=== PATIENT | male | born 1945 | race Caucasian/White ===

== ENCOUNTER 2019-08-01 10:35 | Inpatient (IN) | payer MEDICARE, BC ==
[2019-08-01] MEDS ORDERED: RX INFO: IV CONTRAST WAS GIVEN 1 EACH MISC MISCELLANE PRN (11:05)
[2019-08-01] MEDS ORDERED: VANCOMYCIN IV PER PHARMACY 1 EACH MISC MISCELLANE PRN (11:12)
--- NOTE | 2019-08-01 11:13 | ED ---
General Adult HPI - General Chief complaint: Shortness of Breath Stated complaint: Sepsis Time Seen by Provider: 08/01/19 10:36 Source: RN/MD Mode of arrival: EMS Limitations: no limitations - History of Present Illness Initial comments: Dictation was produced using [employer] dictation software. please excuse any grammatical, word or spelling errors. Chief Complaint: 74-year-old male transferred from [facility] for escalation of care. History of Present Illness: 74-year-old male who was transferred from [facility]. Over the last several days patient has been expressing worsening shortness of breath and weakness. Patient is a history of severe COPD with depressed respiratory function. His traffic control flagger is Dr. Bradley. Patient states over the last 48 hours he's been having worsening weakness especially noticeable in his legs. Patient is oxygen dependent. Patient was evaluated at [facility]. He was given written treatment. X-ray was performed showing cavitating lesion in the right upper lobe concerning for fungal versus neoplastic versus tuberculosis. Patient was placed in isolation. Patient was given Levaquin. She still continues. Breath however states that his symptoms are manageable. Patient is more concerned about his weakness. The ROS documented in this emergency department record has been reviewed and confirmed by me. Those systems with pertinent positive or negative responses have been documented in the HPI. All other systems are other negative and/or noncontributory. PHYSICAL EXAM: General Impression: Alert and oriented x3, not in acute distress HEENT: Normocephalic atraumatic, extra-ocular movements intact, pupils equal and reactive to light bilaterally, mucous membranes moist. Cardiovascular: Heart regular rate and rhythm, S1&S2 audible, no murmurs, rubs or gallops Chest: Mild diffuse end expiratory wheezing Abdomen: Bowel sounds present, abdomen soft, non-tender, non-distended, no organomegaly Musculoskeletal: Pulses present and equal in all extremities, no peripheral edema Motor: no focal deficits noted Neurological: CN II-XII grossly intact, no focal motor or sensory deficits noted Skin: Intact with no visualized rashes Psych: Normal affect and mood ED course: 74-year-old male transferred from [facility] for escalation of care. She has history of COPD and is oxygen dependent. Lungs upon arrival shows heart rate of 105, rest of vital signs within acceptable limits. Patient is well-appearing at bedside. Does have mild wheeze but does not appear to be dyspneic. Transferred documentation was reviewed in its entirety. Labs from [place] shows leukocytosis of 21.4 x-rays were loaded into our PACS system. Given the patient has cavitating lesion we will order patient vancomycin for possibility of lung abscess. MRI was reviewed. Patient does not have any hospital visits to this hospital. CT of the chest with contrast was ordered for further diagnostic imaging. CT of the chest shows 74 cm cavitary structure with fluid level concerning for an infected bulla. Discussed patient case Dr. Meredith was willing to accept patient care. Patient be admitted with consultation to pulmonology. EKG interpretation: Ventricular rate modifying, sinus tachycardia,. Interval 126, QS 82, QTc 446. No OH prolongation, no QTC prolongation, no ST or T-wave changes noted. Pulmonary disease pattern. - Related Data Allergies Allergy/AdvReac Type Severity Reaction Status Date / Time No Known Allergies Allergy Verified 08/01/19 10:48 Review of Systems ROS Statement: Those systems with pertinent positive or pertinent negative responses have been documented in the HPI. ROS Other: All systems not noted in ROS Statement are negative. Past Medical History Past Medical History: Asthma, COPD, Hyperlipidemia, Hypertension, Pneumonia History of Any Multi-Drug Resistant Organisms: None Reported Past Surgical History: No Surgical Hx Reported Past Psychological History: Anxiety Smoking Status: Former smoker Past Alcohol Use History: None Reported Past Drug Use History: None Reported General Exam Limitations: no limitations Course Vital Signs 08/01/19 08/01/19 08/01/19 10:42 10:49 12:01 Temperature 98.4 F Pulse Rate 105 H 100 Respiratory 18 20 18 Rate Blood Pressure 128/88 115/78 O2 Sat by Pulse 97 97 Oximetry Disposition Clinical Impression: Pneumonia Disposition: ADMITTED IP TO THIS HOSP Condition: Fair Referrals: Osvaldo Maynard MD [Primary Care Provider] - 1-2 days Decision Time: 13:20
[2019-08-01] MEDS ORDERED: VANCOMYCIN 1,250 MG in SODIUM CHLORIDE 0.9% 250 ML IVPB STA (11:18)
--- NOTE | 2019-08-01 12:55 | CT ---
EXAMINATION TYPE: CT chest w con DATE OF EXAM: 08/01/2019 COMPARISON: None HISTORY: Abnormal xray. CT DLP: 286.4 mGycm Automated exposure control for dose reduction was used. CONTRAST: CT scan of the chest is performed with IV Contrast, patient injected with 100 mL of Isovue 300. FINDINGS: LUNGS: 7.0 x 4.1 cm cavitary structure with fluid level noted left upper lobe extending into the left lung apex may reflect cavitary neoplasm versus an infected bulla or cavitary infection. Surrounding areas of cystic change with additional infiltrate noted left upper lobe. Associated bronchiectasis. S evere emphysematous changes noted bilaterally. No additional areas of air-fluid level seen. Right api svetlana parenchymal scar. Scattered granulomas seen. MEDIASTINUM: There are no greater than 1 cm hilar or mediastinal lymph nodes. No pericardial effusi on is seen. Thoracic aorta is of normal caliber. The heart is not enlarged. UPPER ABDOMEN: No significant abnormality appreciated. OTHER: No additional significant abnormality is seen. IMPRESSION: 1.: 7.0 x 4.1 cm cavitary structure with fluid level noted left upper lobe extending into the left elmer ng apex may reflect infected bulla although cavitary neoplasm or cavitary infection excluded. 2. Adjacent area of additional infiltrate with cystic changes identified within it and associated bro nchiectasis. 3. Severe changes of emphysema.
[2019-08-01] MEDS ORDERED: ACETAMINOPHEN TAB 325 MG TAB PO PRN (13:16)
[2019-08-01] MEDS ORDERED: ONDANSETRON 4 MG/2 ML VIAL IVP PRN (13:16)
[2019-08-01] MEDS ORDERED: NALOXONE 0.4 MG/ML 1 ML VIAL IV PRN (13:16)
[2019-08-01] MEDS: SODIUM CHLORIDE 0.9% 1,000 ML IV SCH (15:04)
[2019-08-01] MEDS ORDERED: INFLUENZA VACCINE (6 MOS+) 60 MCG/0.5 ML SYRINGE IM ONE (16:17)
[2019-08-01] MEDS: PIPERACILLIN-TAZOBACTAM 3.375 GM in SODIUM CHLORIDE 0.9% 100 ML IVPB SCH (16:24)
[2019-08-01] MEDS ORDERED: EPINEPHrine 1 MG/ML 1 ML AMP IM PRN (16:51)
[2019-08-01] MEDS ORDERED: PANTOPRAZOLE 40 MG TABLET PO PRN (16:51)
[2019-08-01 16:55] LABS: African American GFR (CKD) >90 (>60 ml/min/1.73 sqM); Non-African American GFR(CKD) >90 (>60 ml/min/1.73 sqM)
--- NOTE | 2019-08-01 17:07 | P.HPIM ---
History of Present Illness 74-year-old pleasant male with known history of COPD quit smoking in 1998 does have advanced COPD with FEV1 of around 10, advanced COPD came in with compensative shortness of breath, night sweats. Patient was complaining of occasional cough unable to bring up much after breathing treatments he is bringing up a bit. X-ray was suspicious for cavities and patient was subsequently sent in here. Patient denied any event. Patient denied any exposure to tumor closest contact denied any travel denied any incarceration. Patient denied any significant recent weight loss. Patient CAT scan was done here which showed a cavitary lesion but there is no lymphadenopathy that we normally see in BP. Patient had significant emphysema with massive bullae. I did review the CAT scan images. Patient does have been a cavitary infiltrate significant with the air bronchogram and pneumonia in that area cannot be ruled out. Pulmonary was consulted. Review of Systems REVIEW OF SYSTEMS: CONSTITUTIONAL: , no malaise, no fatigue. HEENT: No recent visual problems or hearing problems. Denied any sore throat. CARDIOVASCULAR: No chest pain, orthopnea, PND, no palpitations, no syncope. PULMONARY: As mentioned in HPI GASTROINTESTINAL: No diarrhea, no nausea, no vomiting, no abdominal pain. NEUROLOGICAL: No headaches, no weakness, no numbness. HEMATOLOGICAL: Denies any bleeding or petechiae. GENITOURINARY: Denies any burning micturition, frequency, or urgency. MUSCULOSKELETAL/RHEUMATOLOGICAL: Denies any joint pain, swelling, or any muscle pain. ENDOCRINE: Denies any polyuria or polydipsia. The rest of the 14-point review of systems is negative. Past Medical History Past Medical History: Asthma, COPD, GERD/Reflux, Hyperlipidemia, Hypertension, Pneumonia, Respiratory Disorder Additional Past Medical History / Comment(s): Severe COPD, home oxygen at 2L/[place] ATC, pneumonia with sepsis, diverticulosis/diverticulitis, overactive bladder History of Any Multi-Drug Resistant Organisms: None Reported Past Surgical History: Orthopedic Surgery, Tonsillectomy Additional Past Surgical History / Comment(s): R index finger tendon surgery, colonoscopies, bilateral cataract removals/lens implants Past Anesthesia/Blood Transfusion Reactions: Postoperative Nausea & Vomiting (PONV) Smoking Status: Former smoker - Past Family History Father Family Medical History: CVA/TIA Additional Family Medical History / Comment(s): Father lived to be 86yrs old. Mother Family Medical History: Cancer Additional Family Medical History / Comment(s): Mother of colon cancer at the age of 53 yrs. Medications and Allergies Home Medications Medication Instructions Recorded Confirmed Type Budesonide-Formot 160-4.5 Mcg 2 puff INHALATION RT-BID 08/01/19 08/01/19 History [Symbicort 160-4.5 Mcg Inhaler] EPINEPHrine (Auto Inject) [Epipen] 0.3 mg IM ONCE PRN 08/01/19 08/01/19 History Ipratropium-Albuterol Nebulize 3 ml INHALATION RT-QID 08/01/19 08/01/19 History [Duoneb 0.5 mg-3 mg/3 ml Soln] Montelukast Sodium [Singulair] 10 mg PO DAILY 08/01/19 08/01/19 History Omeprazole [PriLOSEC] 20 mg PO DAILY PRN 08/01/19 08/01/19 History Simvastatin [Zocor] 5 mg PO HS 08/01/19 08/01/19 History Theophylline Anhydrous [Uniphyl ER] 600 mg PO DAILY 08/01/19 08/01/19 History Tiotropium [place] [Spiriva] 1 cap INHALATION RT-DAILY 08/01/19 08/01/19 History amLODIPine [Norvasc] 5 mg PO DAILY 08/01/19 08/01/19 History clonazePAM [KlonoPIN] 0.5 mg PO BID PRN 08/01/19 08/01/19 History guaiFENesin [Mucinex] 1,200 mg PO BID PRN 08/01/19 08/01/19 History predniSONE 10 mg PO DAILY 08/01/19 08/01/19 History Allergies Allergy/AdvReac Type Severity Reaction Status Date / Time No Known Allergies Allergy Verified 08/01/19 14:04 Physical Exam Vitals: Vital Signs Temp Pulse Resp BP Pulse Ox 08/01/19 16:00 98.9 F 101 H 19 147/88 96 08/01/19 15:00 98.7 F 93 17 121/63 96 08/01/19 13:50 91 18 114/61 97 08/01/19 13:30 94 18 107/79 97 08/01/19 12:01 100 18 115/78 97 08/01/19 10:49 20 08/01/19 10:42 98.4 F 105 H 18 128/88 97 Intake and Output 08/01/19 08/01/19 08/01/19 06:59 14:59 22:59 Other: Weight 68.039 kg 68.039 kg PHYSICAL EXAMINATION: GENERAL: The patient is alert and oriented x3, not in any acute distress. Well developed, well nourished. HEENT: Pupils are round and equally reacting to light. EOMI. No scleral icterus. No conjunctival pallor. Normocephalic, atraumatic. No pharyngeal erythema. No thyromegaly. CARDIOVASCULAR: S1 and S2 present. No murmurs, rubs, or gallops. PULMONARY: There is no air movement on exam ABDOMEN: Soft, nontender, nondistended, normoactive bowel sounds. No palpable organomegaly. MUSCULOSKELETAL: No joint swelling or deformity. EXTREMITIES: No cyanosis, clubbing, or pedal edema. NEUROLOGICAL: Gross neurological examination did not reveal any focal deficits. SKIN: No rashes. Thrombosis Risk Factor Assmnt - Choose All That Apply Any of the Below Risk Factors Present?: Yes Each Factor Represents 1 point: Abnormal pulmonary function (COPD), Serious lung disease incl. pneumonia (< 1month) Other Risk Factors: Yes Each Risk Factor Represents 2 Points: Age 61-74 years Other congenital or acquired thrombophilia - If yes, enter type in comment: No Thrombosis Risk Factor Assessment Total Risk Factor Score: 4 Thrombosis Risk Factor Assessment Level: Moderate Risk Assessment and Plan Plan: Acute on chronic hypercapnic respiratory failure secondary to COPD exacerbation patient will be started on systemic steroids inhalational treatments. Patient may have pneumonia patient will be treated for staphylococcal pneumonia as well as and with pneumonia pulmonary will be consulted my suspicion is low for Aspergillus cavitary lesion and suspicion is low for tuberculosis as well. And uses 2 L of oxygen at home presently on 3 L -Cavitary lesion with possible duane-lesion pneumonia: Patient with intrauterine Zosyn and vancomycin pulmonary was consulted. 1 sure whether this is an older cavitary lesion. Patient follows with Dr. Carnes as an outpatient. -Leukocytosis secondary to pneumonia as mentioned above, we'll repeat CBC tomorrow looking for eosinophilia -Severe emphysema and COPD -Past esophageal reflux disease -Hypertension -hyperlipidemia -DVT prophylaxis subcutaneous heparin
--- NOTE | 2019-08-01 17:31 | P.CNPUL ---
History of Present Illness Consult date: 08/01/19 Requesting physician: Alonso Meredith Reason for consult: dyspnea Chief complaint: shortness of breath, chills, cough History of present illness: 74-year-old male patient with history of severe COPD, with baseline FEV1 of 0.48 L or 15% of predicted with diffusion abnormality, chronic hypoxemic respiratory failure, hypertension, anxiety, hyperlipidemia, former smoking history. She follows with Dr. Carnes in the pulmonary clinic, patient is on maintenance dose of prednisone 10 mg daily, Spiriva, DuoNeb, Symbicort, theophylline, and Mucinex. Patient presented to the hospital for evaluation of increasing dyspnea, cough, chills, weakness, reduction of greenish colored sputum. Patient was initially evaluated at [facility], and chest x- rays performed showing cavitating lesion in the right upper lobe concerning for fungal versus neoplastic versus TB. Patient was started on Levaquin, patient was transferred to [facility] for further management, and CT chest with contrast was obtained showing a 7.0 x 4.1 cm cavitary structure with fluid level in the left upper lobe extending into the left lung apex that could reflect infected Although cavitary neoplasm with catheter infection not excluded, severe bullous emphysema was noted. she was started on empiric antibiotics,in the form of Zosyn and vancomycin, nebulized bronchodilators and he is being admitted for further management. Review of Systems All systems: negative Constitutional: Denies chills, Denies fever Eyes: denies blurred vision, denies pain Ears, nose, mouth and throat: Denies headache, Denies sore throat Cardiovascular: Denies chest pain, Denies shortness of breath Respiratory: Reports cough with sputum, Reports dyspnea, Reports home oxygen, Reports respiratory infections, Reports wheezing, Denies cough Gastrointestinal: Denies abdominal pain, Denies diarrhea, Denies nausea, Denies vomiting Musculoskeletal: Denies myalgias Integumentary: Denies pruritus, Denies rash Neurological: Denies numbness, Denies weakness Psychiatric: Denies anxiety, Denies depression Endocrine: Denies fatigue, Denies weight change Past Medical History Past Medical History: Asthma, COPD, GERD/Reflux, Hyperlipidemia, Hypertension, Pneumonia, Respiratory Disorder Additional Past Medical History / Comment(s): Severe COPD, home oxygen at 2L/[place] ATC, pneumonia with sepsis, diverticulosis/diverticulitis, overactive bladder History of Any Multi-Drug Resistant Organisms: None Reported Past Surgical History: Orthopedic Surgery, Tonsillectomy Additional Past Surgical History / Comment(s): R index finger tendon surgery, colonoscopies, bilateral cataract removals/lens implants Past Anesthesia/Blood Transfusion Reactions: Postoperative Nausea & Vomiting (PONV) Smoking Status: Former smoker - Past Family History Father Family Medical History: CVA/TIA Additional Family Medical History / Comment(s): Father lived to be 86yrs old. Mother Family Medical History: Cancer Additional Family Medical History / Comment(s): Mother of colon cancer at the age of 53 yrs. Medications and Allergies Home Medications Medication Instructions Recorded Confirmed Type Budesonide-Formot 160-4.5 Mcg 2 puff INHALATION RT-BID 08/01/19 08/01/19 History [Symbicort 160-4.5 Mcg Inhaler] EPINEPHrine (Auto Inject) [Epipen] 0.3 mg IM ONCE PRN 08/01/19 08/01/19 History Ipratropium-Albuterol Nebulize 3 ml INHALATION RT-QID 08/01/19 08/01/19 History [Duoneb 0.5 mg-3 mg/3 ml Soln] Montelukast Sodium [Singulair] 10 mg PO DAILY 08/01/19 08/01/19 History Omeprazole [PriLOSEC] 20 mg PO DAILY PRN 08/01/19 08/01/19 History Simvastatin [Zocor] 5 mg PO HS 08/01/19 08/01/19 History Theophylline Anhydrous [Uniphyl ER] 600 mg PO DAILY 08/01/19 08/01/19 History Tiotropium [place] [Spiriva] 1 cap INHALATION RT-DAILY 08/01/19 08/01/19 History amLODIPine [Norvasc] 5 mg PO DAILY 08/01/19 08/01/19 History clonazePAM [KlonoPIN] 0.5 mg PO BID PRN 08/01/19 08/01/19 History guaiFENesin [Mucinex] 1,200 mg PO BID PRN 08/01/19 08/01/19 History predniSONE 10 mg PO DAILY 08/01/19 08/01/19 History Allergies Allergy/AdvReac Type Severity Reaction Status Date / Time No Known Allergies Allergy Verified 08/01/19 14:04 Physical Exam Vitals: Vital Signs Temp Pulse Resp BP Pulse Ox 08/01/19 16:00 98.9 F 101 H 19 147/88 96 08/01/19 15:00 98.7 F 93 17 121/63 96 08/01/19 13:50 91 18 114/61 97 08/01/19 13:30 94 18 107/79 97 08/01/19 12:01 100 18 115/78 97 08/01/19 10:49 20 08/01/19 10:42 98.4 F 105 H 18 128/88 97 Intake and Output 08/01/19 08/01/19 08/01/19 06:59 14:59 22:59 Other: Weight 68.039 kg 68.039 kg GENERAL EXAM: Alert, active, comfortable in no apparent distress. HEAD: Normocephalic/atraumatic. EYES: Normal reaction of pupils, equal size. Conjunctiva pink, sclera white. NOSE: Clear with pink turbinates. THROAT: No erythema or exudates. NECK: No masses, no JVD, no thyroid enlargement, no adenopathy. CHEST: No chest wall deformity. Symmetrical expansion. LUNGS: Equal air entry with diminished breath sounds bilaterally, basilar crackles CVS: Regular rate and rhythm, normal S1 and S2, no gallops, no murmurs, no rubs ABDOMEN: Soft, nontender. No hepatosplenomegaly, normal bowel sounds, no guarding or rigidity. EXTREMITIES: No clubbing, no edema, no cyanosis, 2+ pulses and upper and lower extremities. MUSCULOSKELETAL: Muscle strength and tone normal. SPINE: No scoliosis or deformity SKIN: No rashes CENTRAL NERVOUS SYSTEM: Alert and oriented -3. No focal deficits, tone is normal in all 4 extremities. PSYCHIATRIC: Alert and oriented -3. Appropriate affect. Intact judgment and insight. Results - Laboratory Findings CBC and BMP: 08/01/19 14:06 - Diagnostic Findings CT scan - chest: report reviewed, image reviewed Assessment and Plan Plan: assessment: #1. acute pneumonia, CT chest showed a 7.0 x 4.1 cm cavitary structure with fluid level in the left upper lobe likely infected bulla or cavitary neoplasm cavitary infection #2. Severe COPD, with the baseline FEV1 of 15% of predicted in 2015 with diffusion abnormality. Severe bullous emphysema noted #3. Chronic hypoxemic respiratory failure #5. Hypertension #6. Hyperlipidemia #7. Previous episodes of pneumonia #8.Former smoker #9. Anxiety #10. Chronic bronchial asthma, unspecified plan: Continue antibiotics, send sputum culture, continue nebulized bronchodilators, CT of the chest has been reviewed, showing cavitating structure in the left upper lobe. Eventually patient may need a bronchoscopy with BAL and possible biopsies, for now continue with medical treatment. Continue with oral steroids, continue Symbicort. We'll follow I performed a history & physical examination of the patient and discussed their management with my nurse practitioner, Chichi Youssef. I reviewed the nurse practitioner's note and agree with the documented findings and plan of care. Lung sounds are positive for diminished breath sounds. The findings and the impression was discussed with the patient. I attest to the documentation by the nurse practitioner. Time with Patient: Greater than 30
[2019-08-01] MEDS: SYMBICORT 160-4.5 MCG INHALER INHALATION SCH (19:36)
[2019-08-01] MEDS: IPRATROPIUM-ALBUTEROL 3 ML NEB INHALATION SCH (19:36)
[2019-08-01] MEDS: VANCOMYCIN 1,250 MG in SODIUM CHLORIDE 0.9% 250 ML IVPB SCH (22:45)
[2019-08-01] MEDS: ATORVASTATIN 10 MG TAB PO SCH (22:46)
[2019-08-01] MEDS: HEPARIN SODIUM,PORCINE 5,000 UNIT/ML 1 ML VIAL SQ SCH (22:46)
[2019-08-01] MEDS: clonazePAM 0.5 MG TAB PO PRN (22:48)
[2019-08-02] MEDS: PIPERACILLIN-TAZOBACTAM 3.375 GM in SODIUM CHLORIDE 0.9% 100 ML IVPB SCH ×3 (00:23→16:14)
[2019-08-02] MEDS: VANCOMYCIN 1,250 MG in SODIUM CHLORIDE 0.9% 250 ML IVPB SCH ×3 (04:47→20:59)
[2019-08-02] MEDS: SODIUM CHLORIDE 0.9% 1,000 ML IV SCH ×3 (06:00→18:12)
[2019-08-02 06:56] LABS: Basophils % (A) 0 %; Eosinophils % (A) 0 %; HCT 36.2 % (39.0-53.0); HGB 12.1 gm/dL (13.0-17.5); Lymphocytes # (A) 0.3 k/uL (1.0-4.8); Lymphocytes % (A) 1 %; MCH 28.1 pg (25.0-35.0); MCHC 33.4 g/dL (31.0-37.0); MCV 84.1 fL (80.0-100.0); Mean Platelet Volume 7.7; Monocytes # (A) 0.5 k/uL (0-1.0); Monocytes % (A) 3 %; Neutrophils # (A) 19.4 k/uL (1.3-7.7); Neutrophils % (A) 95 %; Platelet Count 203 k/uL (150-450); RDW 14.4 % (11.5-15.5); WBC 20.4 k/uL (3.8-10.6)
[2019-08-02 07:11] LABS: African American GFR (CKD) >90 (>60 ml/min/1.73 sqM); Anion Gap 8 mmol/L; Blood Urea Nitrogen 14 mg/dL (9-20); Calcium 8.6 mg/dL (8.4-10.2); Carbon Dioxide 27 mmol/L (22-30); Chloride 100 mmol/L (98-107); Glucose 109 mg/dL (74-99); Non-African American GFR(CKD) >90 (>60 ml/min/1.73 sqM); Potassium 4.1 mmol/L (3.5-5.1); Sodium 135 mmol/L (137-145)
[2019-08-02] MEDS: IPRATROPIUM-ALBUTEROL 3 ML NEB INHALATION SCH ×4 (08:38→20:29)
[2019-08-02] MEDS: SYMBICORT 160-4.5 MCG INHALER INHALATION SCH (08:38)
[2019-08-02] MEDS ORDERED: predniSONE 20 MG TAB PO SCH (09:00)
[2019-08-02] MEDS: HEPARIN SODIUM,PORCINE 5,000 UNIT/ML 1 ML VIAL SQ SCH ×2 (09:07→20:59)
[2019-08-02] MEDS: THEOPHYLLINE 24 HOUR 300 MG CAP.ER.24H PO SCH (09:08)
[2019-08-02] MEDS: PANTOPRAZOLE 40 MG/10 ML VIAL IV SCH (09:08)
[2019-08-02] MEDS: MONTELUKAST 10 MG TAB PO SCH (09:08)
[2019-08-02] MEDS: clonazePAM 0.5 MG TAB PO PRN ×2 (09:19→21:01)
--- NOTE | 2019-08-02 10:59 | P.PN ---
Subjective Progress Note Date: 08/02/19 Principal diagnosis: Shortness of breath, chills, cough 74-year-old male patient with history of severe COPD, with baseline FEV1 of 0.48 L or 15% of predicted with diffusion abnormality, chronic hypoxemic respiratory failure, hypertension, anxiety, hyperlipidemia, former smoking history. He follows with Dr. Carnes in the pulmonary clinic, patient is on maintenance dose of prednisone 10 mg daily, Spiriva, DuoNeb, Symbicort, theophylline, and Mucinex. Patient presented to the hospital for evaluation of increasing dyspnea, cough, chills, weakness, reduction of greenish colored sputum. Patient was initially evaluated at [facility], and chest x-rays performed showing cavitating lesion in the right upper lobe concerning for fungal versus neoplastic versus TB. Patient was started on Levaquin, patient was transferred to [facility] for further management, and CT chest with contrast was obtained showing a 7.0 x 4.1 cm cavitary structure with fluid level in the left upper lobe extending into the left lung apex that could reflect infected Although cavitary neoplasm with catheter infection not excluded, severe bullous emphysema was noted. she was started on empiric antibiotics,in the form of Zosyn and vancomycin, nebulized bronchodilators and he is being admitted for further management. On 08/02/2019 patient seen in follow-up on selective care unit, still dyspneic with conversation, but no acute distress, he states his breathing is probably about the same, no fever, denies chills, occasional nonproductive cough, unable to bring up any sputum, currently on 2 L of oxygen with a pulse ox of 93%, he denies any chest pain on today's exam, lung sounds reveal diminished breath sounds with crackles over anterior lateral left chest. End expiratory wheezes, patient is on a combination of Zosyn and vancomycin. On oral prednisone 40 mg daily, Symbicort, breathing treatments, it is labs have been reviewed, showing white blood cell count 20.4, hemoglobin of 12.1, serum sodium was 135, the rest of the electrolytes and renal profile were within the normal limits. Objective - Vital Signs Vital signs: Vital Signs Temp 98.6 F 08/02/19 04:12 Pulse 100 08/02/19 08:53 Resp 18 08/02/19 04:12 BP 145/77 08/02/19 04:12 Pulse Ox 93 L 08/02/19 04:12 Intake & Output 08/01/19 08/02/19 08/02/19 18:59 06:59 18:59 Intake Total 600 Output Total 550 Balance 50 Weight 68.039 kg 64.2 kg Intake: Amount of Fluid Infused ( 600 ml) Output: Urine 550 Other: Voiding Method Urinal # Voids 2 - Exam GENERAL EXAM: Alert, very dyspneic, 74-year-old white male, on 2 L of oxygen, dyspneic with any conversation HEAD: Normocephalic/atraumatic. EYES: Normal reaction of pupils, equal size. Conjunctiva pink, sclera white. NOSE: Clear with pink turbinates. THROAT: No erythema or exudates. NECK: No masses, no JVD, no thyroid enlargement, no adenopathy. CHEST: No chest wall deformity. Symmetrical expansion. LUNGS: Equal air entry with diminished breath sounds bilaterally, crackles over left upper lateral chest anteriorly, diminished air entry bilaterally, end expiratory wheezes CVS: Regular rate and rhythm, normal S1 and S2, no gallops, no murmurs, no rubs ABDOMEN: Soft, nontender. No hepatosplenomegaly, normal bowel sounds, no guarding or rigidity. EXTREMITIES: No clubbing, no edema, no cyanosis, 2+ pulses and upper and lower extremities. MUSCULOSKELETAL: Muscle strength and tone normal. SPINE: No scoliosis or deformity SKIN: No rashes CENTRAL NERVOUS SYSTEM: Alert and oriented -3. No focal deficits, tone is normal in all 4 extremities. PSYCHIATRIC: Alert and oriented -3. Appropriate affect. Intact judgment and insight. - Labs CBC & Chem 7: 08/02/19 05:54 08/02/19 05:54 Labs: Abnormal Lab Results - Last 24 Hours (Table) 08/02/19 08/02/19 Range/Units 05:54 05:54 WBC 20.4 H (3.8-10.6) k/uL Hgb 12.1 L (13.0-17.5) gm/dL Hct 36.2 L (39.0-53.0) % Neutrophils # 19.4 H (1.3-7.7) k/uL Lymphocytes # 0.3 L (1.0-4.8) k/uL Sodium 135 L (137-145) mmol/L Glucose 109 H (74-99) mg/dL Assessment and Plan Plan: assessment: #1. acute pneumonia, CT chest showed a 7.0 x 4.1 cm cavitary structure with fluid level in the left upper lobe likely infected bulla or cavitary neoplasm cavitary infection #2. Severe COPD, with the baseline FEV1 of 15% of predicted in 2015 with diffusion abnormality. Severe bullous emphysema noted #3. Chronic hypoxemic respiratory failure #5. Hypertension #6. Hyperlipidemia #7. Previous episodes of pneumonia #8.Former smoker #9. Anxiety #10. Chronic bronchial asthma, unspecified plan: Continue current antibiotics, send a sputum culture, we will switch Symbicort Pulmicort and Perforomist, we will switch oral prednisone to IV steroids, continue nebulized bronchodilators, patient is quite dyspneic with any exertion, and conversation. No fever, or chills, unable to bring up much sputum, repeat chest x-ray tomorrow morning. We'll continue to closely follow I performed a history & physical examination of the patient and discussed their management with my nurse practitioner, Chichi Youssef. I reviewed the nurse practitioner's note and agree with the documented findings and plan of care. Lung sounds are positive for diminished breath sounds. The findings and the impression was discussed with the patient. I attest to the documentation by the nurse practitioner. Time with Patient: Less than 30
[2019-08-02] MEDS: methylPREDNISolone SOD SUCCI 40 MG/ML 1 ML VIAL IV SCH ×2 (12:34→16:15)
--- NOTE | 2019-08-02 15:19 | P.PN ---
Subjective Patient is admitted for a pneumonia and a cavitary lesion along with COPD exacerbation patient is feeling much better now patient is on no systemic s teroids and antibiotics. Constitutional: Denied any fatigue denied any fever. Cardio vascular: denied any chest pain, palpitations Gastrointestinal denied any nausea vomiting Pulmonary: Denied any shortness of breath cough Neurologic denied any new focal deficits All inpatient medications were reviewed and appropriate changes in these medications as dictated in the interval history and assessment and plan. Objective - Vital Signs Vital signs: Vital Signs Temp 98.1 F 08/02/19 08:15 Pulse 119 H 08/02/19 12:00 Resp 18 08/02/19 12:00 BP 119/72 08/02/19 12:00 Pulse Ox 90 L 08/02/19 12:00 Intake & Output 08/01/19 08/02/19 08/02/19 18:59 06:59 18:59 Intake Total 600 300 Output Total 550 750 Balance 50 -450 Weight 68.039 kg 64.2 kg 64.2 kg Intake: Amount of Fluid Infused ( 600 ml) Oral 300 Output: Urine 550 750 Other: Voiding Method Urinal # Voids 2 - Exam PHYSICAL EXAMINATION: GENERAL: The patient is alert and oriented x3, not in any acute distress. Well developed, well nourished. HEENT: Pupils are round and equally reacting to light. EOMI. No scleral icterus. No conjunctival pallor. Normocephalic, atraumatic. No pharyngeal erythema. No thyromegaly. CARDIOVASCULAR: S1 and S2 present. No murmurs, rubs, or gallops. PULMONARY: Very minimal air movement on exam ABDOMEN: Soft, nontender, nondistended, normoactive bowel sounds. No palpable organomegaly. MUSCULOSKELETAL: No joint swelling or deformity. EXTREMITIES: No cyanosis, clubbing, or pedal edema. NEUROLOGICAL: Gross neurological examination did not reveal any focal deficits. SKIN: No rashes. - Labs CBC & Chem 7: 08/02/19 05:54 08/02/19 05:54 Labs: Abnormal Lab Results - Last 24 Hours (Table) 08/02/19 08/02/19 Range/Units 05:54 05:54 WBC 20.4 H (3.8-10.6) k/uL Hgb 12.1 L (13.0-17.5) gm/dL Hct 36.2 L (39.0-53.0) % Neutrophils # 19.4 H (1.3-7.7) k/uL Lymphocytes # 0.3 L (1.0-4.8) k/uL Sodium 135 L (137-145) mmol/L Glucose 109 H (74-99) mg/dL Assessment and Plan Plan: Acute on chronic hypercapnic respiratory failure secondary to COPD exacerbation patient will be started on systemic steroids inhalational treatments. Patient may have pneumonia patient will be treated for staphylococcal pneumonia as well as and with pneumonia pulmonary evaluated the patient my suspicion is low for Aspergillus cavitary lesion and suspicion is low for tuberculosis as well. And uses 2 L of oxygen at home presently on 2 L -Cavitary lesion with possible duane-lesion pneumonia: Patient with intrauterine Zosyn and vancomycin pulmonary was consulted. 1 sure whether this is an older cavitary lesion. Patient follows with Dr. Carnes as an outpatient. -Leukocytosis secondary to pneumonia as mentioned above, no eosinophilia on the CBC -Severe emphysema and COPD -Past esophageal reflux disease -Hypertension -hyperlipidemia -DVT prophylaxis subcutaneous heparin
[2019-08-02] MEDS ORDERED: VANCOMYCIN TROUGH DUE 1 EACH MISC MISCELLANE ONE (19:00)
[2019-08-02] MEDS: FORMOTEROL FUMARATE 20 MCG/2 ML NEBU INHALATION SCH (20:29)
[2019-08-02] MEDS: BUDESONIDE 1 MG/2 ML NEBU INHALATION SCH (20:29)
[2019-08-02] MEDS: ATORVASTATIN 10 MG TAB PO SCH (20:59)
[2019-08-03] MEDS: methylPREDNISolone SOD SUCCI 40 MG/ML 1 ML VIAL IV SCH ×4 (00:27→22:59)
[2019-08-03] MEDS: PIPERACILLIN-TAZOBACTAM 3.375 GM in SODIUM CHLORIDE 0.9% 100 ML IVPB SCH ×4 (00:27→22:59)
[2019-08-03] MEDS: IPRATROPIUM-ALBUTEROL 3 ML NEB INHALATION PRN (04:40)
[2019-08-03] MEDS: VANCOMYCIN 1,250 MG in SODIUM CHLORIDE 0.9% 250 ML IVPB SCH ×3 (04:47→21:02)
[2019-08-03 06:41] LABS: African American GFR (CKD) >90 (>60 ml/min/1.73 sqM); Non-African American GFR(CKD) >90 (>60 ml/min/1.73 sqM)
[2019-08-03] MEDS: FORMOTEROL FUMARATE 20 MCG/2 ML NEBU INHALATION SCH ×2 (06:57→19:25)
[2019-08-03] MEDS: BUDESONIDE 1 MG/2 ML NEBU INHALATION SCH ×2 (06:57→19:25)
[2019-08-03] MEDS: IPRATROPIUM-ALBUTEROL 3 ML NEB INHALATION SCH ×4 (06:57→19:25)
--- NOTE | 2019-08-03 07:24 | XR ---
EXAMINATION TYPE: XR chest 1V portable DATE OF EXAM: 08/03/2019 HISTORY: Shortness of breath. COMPARISON: None. TECHNIQUE: Single view of the chest is submitted. FINDINGS: Demonstrated are scattered senescent parenchymal change. Left upper lobe infiltrate. Correlate for pneumonia or mass lesion. Progress studies are advised. The heart is stable. Hilar and mediastinal structures are within normal limits. Degenerative changes are seen of the dorsal spine. IMPRESSION: 1. Left upper lobe infiltrate. Correlate for pneumonia or mass lesion. Progress studies are advised.
[2019-08-03] MEDS: SODIUM CHLORIDE 0.9% 1,000 ML IV SCH ×4 (09:23→22:59)
[2019-08-03] MEDS: PANTOPRAZOLE 40 MG/10 ML VIAL IV SCH (09:32)
[2019-08-03] MEDS: HEPARIN SODIUM,PORCINE 5,000 UNIT/ML 1 ML VIAL SQ SCH ×2 (09:33→21:04)
[2019-08-03] MEDS: MONTELUKAST 10 MG TAB PO SCH (09:33)
[2019-08-03] MEDS: THEOPHYLLINE 24 HOUR 300 MG CAP.ER.24H PO SCH (09:34)
[2019-08-03] MEDS: clonazePAM 0.5 MG TAB PO PRN (09:44)
--- NOTE | 2019-08-03 10:45 | P.PN ---
Subjective Progress Note Date: 08/03/19 Principal diagnosis: Acute pneumonia, CT chest showed a 7.0 x 4.1 cm cavitary structure with fluid level in the left upper lobe likely infected bulla or cavitary neoplasm cavitary infection 74-year-old male patient with history of severe COPD, with baseline FEV1 of 0.48 L or 15% of predicted with diffusion abnormality, chronic hypoxemic respiratory failure, hypertension, anxiety, hyperlipidemia, former smoking history. He follows with Dr. Carnes in the pulmonary clinic, patient is on maintenance dose of prednisone 10 mg daily, Spiriva, DuoNeb, Symbicort, theophylline, and Mucinex. Patient presented to the hospital for evaluation of increasing dyspnea, cough, chills, weakness, reduction of greenish colored sputum. Patient was initially evaluated at [facility], and chest x-rays performed showing cavitating lesion in the right upper lobe concerning for fungal versus neoplastic versus TB. Patient was started on Levaquin, patient was transferred to [facility] for further management, and CT chest with contrast was obtained showing a 7.0 x 4.1 cm cavitary structure with fluid level in the left upper lobe extending into the left lung apex that could reflect infected Although cavitary neoplasm with catheter infection not excluded, severe bullous emphysema was noted. she was started on empiric antibiotics,in the form of Zosyn and vancomycin, nebulized bronchodilators and he is being admitted for further management. On 08/02/2019 patient seen in follow-up on selective care unit, still dyspneic with conversation, but no acute distress, he states his breathing is probably about the same, no fever, denies chills, occasional nonproductive cough, unable to bring up any sputum, currently on 2 L of oxygen with a pulse ox of 93%, he denies any chest pain on today's exam, lung sounds reveal diminished breath sounds with crackles over anterior lateral left chest. End expiratory wheezes, patient is on a combination of Zosyn and vancomycin. On oral prednisone 40 mg daily, Symbicort, breathing treatments, it is labs have been reviewed, showing white blood cell count 20.4, hemoglobin of 12.1, serum sodium was 135, the rest of the electrolytes and renal profile were within the normal limits. The patient is seen today 08/03/2019 in follow-up on the selective care unit. He is currently resting comfortably in bed. Awake and alert in no acute di stress. He is breathing a bit better today as compared to yesterday. Less cough and congestion. He is maintaining O2 saturation in the low 90s on 2 L/m per nasal cannula. He is afebrile. Slightly tachycardic. Creatinine 0.69. Lactic acid 1.7. He remains on DuoNeb inhalations, Pulmicort and Perforomist inhalations, IV Cymetra, Mucinex, theophylline. Antibiotics in the form of vancomycin and Zosyn. Today's chest x-ray continues to show the left upper lobe infiltrate. Objective - Vital Signs Vital signs: Vital Signs Temp 98.2 F 08/03/19 04:36 Pulse 108 H 08/03/19 07:10 Resp 18 08/03/19 04:36 BP 133/77 08/03/19 04:36 Pulse Ox 90 L 08/03/19 04:36 Intake & Output 08/02/19 08/03/19 08/03/19 18:59 06:59 18:59 Intake Total 530 240 Output Total 1450 575 250 Balance -920 -575 -10 Weight 64.2 kg 64 kg Intake: Oral 530 240 Output: Urine 1450 575 250 Other: Voiding Method Urinal - Exam GENERAL EXAM: Alert, pleasant 74-year-old male patient, on 2 L of oxygen, dyspneic with conversation and minimal activity HEAD: Normocephalic/atraumatic. EYES: Normal reaction of pupils, equal size. Conjunctiva pink, sclera white. NOSE: Clear with pink turbinates. THROAT: No erythema or exudates. NECK: No masses, no JVD, no thyroid enlargement, no adenopathy. CHEST: No chest wall deformity. Symmetrical expansion. LUNGS: Equal air entry with diminished breath sounds bilaterally, crackles over left upper lateral chest anteriorly, diminished air entry bilaterally, end expiratory wheezes CVS: Regular rate and rhythm, normal S1 and S2, no gallops, no murmurs, no rubs ABDOMEN: Soft, nontender. No hepatosplenomegaly, normal bowel sounds, no guarding or rigidity. EXTREMITIES: No clubbing, no edema, no cyanosis, 2+ pulses and upper and lower extremities. MUSCULOSKELETAL: Muscle strength and tone normal. SPINE: No scoliosis or deformity SKIN: No rashes CENTRAL NERVOUS SYSTEM: No focal deficits, tone is normal in all 4 extremities. PSYCHIATRIC: Alert and oriented -3. Appropriate affect. Intact judgment and insight. - Labs CBC & Chem 7: 08/02/19 05:54 08/03/19 05:59 Assessment and Plan Assessment: #1. Acute pneumonia, CT chest showed a 7.0 x 4.1 cm cavitary structure with fluid level in the left upper lobe likely infected bulla or cavitary neoplasm cavitary infection #2. Severe COPD, with the baseline FEV1 of 15% of predicted in 2015 with diffusion abnormality. Severe bullous emphysema noted #3. Chronic hypoxemic respiratory failure #5. Hypertension #6. Hyperlipidemia #7. Previous episodes of pneumonia #8. Former smoker #9. Anxiety #10. Chronic bronchial asthma, unspecified Plan: The patient was seen and evaluated by Dr. Smith. Chest x-ray continues to show left upper lobe infiltrate Continue vancomycin and Zosyn Continue bronchodilators and IV steroids Avoid bronchoscopy if possible due to the patient's severe bullous emphysema and poor lung function Continue to follow and make further recommendations based on his clinical status I, the cosigning physician, performed a history & physical examination of the patient. Lungs sounds bilateral end expiratory wheeze be scattered rhonchi more so on the left anterior chest. Maintaining good O2 saturations in the 90s on 2 L/m per nasal cannula. I discussed the assessment and plan of care with my nurse practitioner, Tamica Conrad. I attest to the above note as dictated by her.
--- NOTE | 2019-08-03 11:41 | P.PN ---
Subjective Patient is admitted for a pneumonia and a cavitary lesion along with COPD exacerbation patient is feeling much better now patient is on no systemic s teroids and antibiotics. 08/03/2019 patient is wheezing respiratory status minimally improved Constitutional: Denied any fatigue denied any fever. Cardio vascular: denied any chest pain, palpitations Gastrointestinal denied any nausea vomiting Pulmonary: As mentioned and will history Neurologic denied any new focal deficits All inpatient medications were reviewed and appropriate changes in these medications as dictated in the interval history and assessment and plan. Objective - Vital Signs Vital signs: Vital Signs Temp 98.2 F 08/03/19 04:36 Pulse 112 H 08/03/19 11:08 Resp 18 08/03/19 04:36 BP 133/77 08/03/19 04:36 Pulse Ox 90 L 08/03/19 04:36 Intake & Output 08/02/19 08/03/19 08/03/19 18:59 06:59 18:59 Intake Total 530 240 Output Total 1450 575 250 Balance -920 -575 -10 Weight 64.2 kg 64 kg Intake: Oral 530 240 Output: Urine 1450 575 250 Other: Voiding Method Urinal - Exam PHYSICAL EXAMINATION: GENERAL: The patient is alert and oriented x3, not in any acute distress. Well developed, well nourished. HEENT: Pupils are round and equally reacting to light. EOMI. No scleral icterus. No conjunctival pallor. Normocephalic, atraumatic. No pharyngeal erythema. No thyromegaly. CARDIOVASCULAR: S1 and S2 present. No murmurs, rubs, or gallops. PULMONARY: Significant wheezing on exam bilaterally which is an improvement from no air movement and diffuse rhonchi bilaterally ABDOMEN: Soft, nontender, nondistended, normoactive bowel sounds. No palpable organomegaly. MUSCULOSKELETAL: No joint swelling or deformity. EXTREMITIES: No cyanosis, clubbing, or pedal edema. NEUROLOGICAL: Gross neurological examination did not reveal any focal deficits. SKIN: No rashes. - Labs CBC & Chem 7: 08/02/19 05:54 08/03/19 05:59 Assessment and Plan Plan: Acute on chronic hypercapnic respiratory failure secondary to COPD exacerbation patient will be started on systemic steroids inhalational treatments. Patient may have pneumonia patient will be treated for staphylococcal pneumonia as well as and with pneumonia pulmonary evaluated the patient my suspicion is low for Aspergillus cavitary lesion and suspicion is low for tuberculosis as well. And uses 2 L of oxygen at home presently on 2 L. Sputum cultures are pending. 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 This carotid lesion appears to be old. Patient follows with Dr. Carnes as an outpatient. -Leukocytosis secondary to pneumonia as mentioned above, no eosinophilia on the CBC -Severe emphysema and COPD -Past esophageal reflux disease -Hypertension -hyperlipidemia -DVT prophylaxis subcutaneous heparin
[2019-08-03] MEDS: ATORVASTATIN 10 MG TAB PO SCH (21:04)
[2019-08-04] MEDS: VANCOMYCIN 1,250 MG in SODIUM CHLORIDE 0.9% 250 ML IVPB SCH ×3 (04:22→21:14)
[2019-08-04] MEDS: IPRATROPIUM-ALBUTEROL 3 ML NEB INHALATION PRN (04:42)
[2019-08-04] MEDS: PANTOPRAZOLE 40 MG TABLET PO SCH (06:51)
[2019-08-04] MEDS: FORMOTEROL FUMARATE 20 MCG/2 ML NEBU INHALATION SCH ×2 (08:27→19:04)
[2019-08-04] MEDS: BUDESONIDE 1 MG/2 ML NEBU INHALATION SCH ×2 (08:27→19:04)
[2019-08-04] MEDS: IPRATROPIUM-ALBUTEROL 3 ML NEB INHALATION SCH ×4 (08:27→19:04)
[2019-08-04] MEDS: methylPREDNISolone SOD SUCCI 40 MG/ML 1 ML VIAL IV SCH ×3 (08:44→23:23)
[2019-08-04] MEDS: MONTELUKAST 10 MG TAB PO SCH (08:44)
[2019-08-04] MEDS: HEPARIN SODIUM,PORCINE 5,000 UNIT/ML 1 ML VIAL SQ SCH ×2 (08:44→21:15)
[2019-08-04] MEDS: PIPERACILLIN-TAZOBACTAM 3.375 GM in SODIUM CHLORIDE 0.9% 100 ML IVPB SCH ×3 (08:44→23:32)
[2019-08-04 08:45] LABS: HCT 37.1 % (39.0-53.0); Hypochromasia Slight; MCH 27.7 pg (25.0-35.0); MCHC 32.2 g/dL (31.0-37.0); Platelet Count 211 k/uL (150-450); RBC 4.32 m/uL (4.30-5.90); RDW 14.4 % (11.5-15.5)
[2019-08-04] MEDS: SODIUM CHLORIDE 0.9% 1,000 ML IV SCH ×2 (08:45→17:22)
[2019-08-04] MEDS: THEOPHYLLINE 24 HOUR 300 MG CAP.ER.24H PO SCH (08:45)
[2019-08-04 08:49] LABS: African American GFR (CKD) >90 (>60 ml/min/1.73 sqM); Anion Gap 4 mmol/L; Blood Urea Nitrogen 14 mg/dL (9-20); Calcium 8.5 mg/dL (8.4-10.2); Carbon Dioxide 36 mmol/L (22-30); Chloride 102 mmol/L (98-107); Glucose 132 mg/dL (74-99); Non-African American GFR(CKD) >90 (>60 ml/min/1.73 sqM); Potassium 3.4 mmol/L (3.5-5.1); Sodium 142 mmol/L (137-145)
[2019-08-04] MEDS: clonazePAM 0.5 MG TAB PO PRN (08:55)
[2019-08-04] MEDS ORDERED: POTASSIUM CHLORIDE ER 20 MEQ TAB.ER PO STA (10:19)
--- NOTE | 2019-08-04 11:12 | P.PN ---
Subjective Progress Note Date: 08/04/19 Principal diagnosis: Shortness of breath, chills, cough 74-year-old male patient with history of severe COPD, with baseline FEV1 of 0.48 L or 15% of predicted with diffusion abnormality, chronic hypoxemic respiratory failure, hypertension, anxiety, hyperlipidemia, former smoking history. He follows with Dr. Carnes in the pulmonary clinic, patient is on maintenance dose of prednisone 10 mg daily, Spiriva, DuoNeb, Symbicort, theophylline, and Mucinex. Patient presented to the hospital for evaluation of increasing dyspnea, cough, chills, weakness, reduction of greenish colored sputum. Patient was initially evaluated at [facility], and chest x-rays performed showing cavitating lesion in the right upper lobe concerning for fungal versus neoplastic versus TB. Patient was started on Levaquin, patient was transferred to [facility] for further management, and CT chest with contrast was obtained showing a 7.0 x 4.1 cm cavitary structure with fluid level in the left upper lobe extending into the left lung apex that could reflect infected Although cavitary neoplasm with catheter infection not excluded, severe bullous emphysema was noted. she was started on empiric antibiotics,in the form of Zosyn and vancomycin, nebulized bronchodilators and he is being admitted for further management. On 08/02/2019 patient seen in follow-up on selective care unit, still dyspneic with conversation, but no acute distress, he states his breathing is probably about the same, no fever, denies chills, occasional nonproductive cough, unable to bring up any sputum, currently on 2 L of oxygen with a pulse ox of 93%, he denies any chest pain on today's exam, lung sounds reveal diminished breath sounds with crackles over anterior lateral left chest. End expiratory wheezes, patient is on a combination of Zosyn and vancomycin. On oral prednisone 40 mg daily, Symbicort, breathing treatments, it is labs have been reviewed, showing white blood cell count 20.4, hemoglobin of 12.1, serum sodium was 135, the rest of the electrolytes and renal profile were within the normal limits. On 08/04/2019 patient seen in follow-up on selective care unit, still dyspneic, but he states he is slightly improved, remains on 2 L of oxygen and his pulse ox is 92%, he still unable to bring up any sputum, his cough does not sound very congested, he is afebrile, hemodynamically patient is stable, he is very dyspneic with any exertion, but he has been up and walking to the bathroom, requires frequent rest periods, but not far off his baseline. On the regular basis patient activity level is limited, he is able to ambulate about the house, and he breaks up his activities of daily living into manageable tasks. Lung sounds reveal coarse crackles over left upper lung, and expiratory wheezes, and diminished breath sounds bilaterally. Patient remains on a combination of Zosyn and vancomycin. He has been unable to provide a sputum culture. Objective - Vital Signs Vital signs: Vital Signs Temp 98.0 F 08/04/19 04:00 Pulse 103 H 08/04/19 08:49 Resp 19 08/04/19 04:00 BP 133/88 08/04/19 04:00 Pulse Ox 92 L 08/04/19 08:29 Intake & Output 08/03/19 08/04/19 08/04/19 18:59 06:59 18:59 Intake Total 240 Output Total 250 900 175 Balance -10 -900 -175 Intake: Oral 240 Output: Urine 250 900 175 Other: Voiding Method Urinal Urinal # Voids 4 1 - Exam GENERAL EXAM: Alert, very dyspneic, 74-year-old white male, on 2 L of oxygen, dyspneic with any conversation HEAD: Normocephalic/atraumatic. EYES: Normal reaction of pupils, equal size. Conjunctiva pink, sclera white. NOSE: Clear with pink turbinates. THROAT: No erythema or exudates. NECK: No masses, no JVD, no thyroid enlargement, no adenopathy. CHEST: No chest wall deformity. Symmetrical expansion. LUNGS: Equal air entry with diminished breath sounds bilaterally, crackles over left upper lateral chest anteriorly, diminished air entry bilaterally, end expiratory wheezes CVS: Regular rate and rhythm, normal S1 and S2, no gallops, no murmurs, no rubs ABDOMEN: Soft, nontender. No hepatosplenomegaly, normal bowel sounds, no guarding or rigidity. EXTREMITIES: No clubbing, no edema, no cyanosis, 2+ pulses and upper and lower extremities. MUSCULOSKELETAL: Muscle strength and tone normal. SPINE: No scoliosis or deformity SKIN: No rashes CENTRAL NERVOUS SYSTEM: Alert and oriented -3. No focal deficits, tone is normal in all 4 extremities. PSYCHIATRIC: Alert and oriented -3. Appropriate affect. Intact judgment and insight. - Labs CBC & Chem 7: 08/04/19 06:43 12 06:43 Labs: Abnormal Lab Results - Last 24 Hours (Table) 08/04/19 08/04/19 Range/Units 06:43 06:43 WBC 13.0 H (3.8-10.6) k/uL Hgb 12.0 L (13.0-17.5) gm/dL Hct 37.1 L (39.0-53.0) % Potassium 3.4 L (3.5-5.1) mmol/L Carbon Dioxide 36 H (22-30) mmol/L Creatinine 0.63 L (0.66-1.25) mg/dL Glucose 132 H (74-99) mg/dL Assessment and Plan Plan: assessment: #1. acute pneumonia, CT chest showed a 7.0 x 4.1 cm cavitary structure with fluid level in the left upper lobe likely infected bulla or cavitary neoplasm cavitary infection #2. Severe COPD, with the baseline FEV1 of 15% of predicted in 2015 with diffusion abnormality. Severe bullous emphysema noted #3. Chronic hypoxemic respiratory failure #5. Hypertension #6. Hyperlipidemia #7. Previous episodes of pneumonia #8.Former smoker #9. Anxiety #10. Chronic bronchial asthma, unspecified plan: Continue current medical treatment, continue Zosyn and vancomycin, unable to provide a sputum culture, but has had no fever or chills, blood cell count is trending down, yesterday's chest x-ray shows a left upper lobe infiltrate. He is dyspneic with any exertion, however this is not too far off his baseline. Encouraged patient to sit up in the chair, deep breathing cough, provide flutter valve and incentive spirometer, we'll follow I performed a history & physical examination of the patient and discussed their management with my nurse practitioner, Chichi Youssef. I reviewed the nurse practitioner's note and agree with the documented findings and plan of care. Lung sounds are positive for diminished breath sounds. The findings and the impression was discussed with the patient. I attest to the documentation by the nurse practitioner. Time with Patient: Less than 30
--- NOTE | 2019-08-04 11:28 | P.PN ---
Subjective Patient is admitted for a pneumonia and a cavitary lesion along with COPD exacerbation patient is feeling much better now patient is on no systemic s teroids and antibiotics. 08/03/2019 patient is wheezing respiratory status minimally improved 08/04/2019 Patient has significant expiratory wheezing which is better compared to admission as he was not moving air at all. Patient although feeling better not ready to go home. Constitutional: Denied any fatigue denied any fever. Cardio vascular: denied any chest pain, palpitations Gastrointestinal denied any nausea vomiting Pulmonary: As mentioned and will history Neurologic denied any new focal deficits All inpatient medications were reviewed and appropriate changes in these medications as dictated in the interval history and assessment and plan. Objective - Vital Signs Vital signs: Vital Signs Temp 98.0 F 08/04/19 04:00 Pulse 103 H 08/04/19 08:49 Resp 19 08/04/19 04:00 BP 133/88 08/04/19 04:00 Pulse Ox 92 L 08/04/19 08:29 Intake & Output 08/03/19 08/04/19 08/04/19 18:59 06:59 18:59 Intake Total 240 Output Total 250 900 175 Balance -10 -900 -175 Intake: Oral 240 Output: Urine 250 900 175 Other: Voiding Method Urinal Urinal # Voids 4 1 - Exam PHYSICAL EXAMINATION: GENERAL: The patient is alert and oriented x3, not in any acute distress. Well developed, well nourished. HEENT: Pupils are round and equally reacting to light. EOMI. No scleral icterus. No conjunctival pallor. Normocephalic, atraumatic. No pharyngeal erythema. No thyromegaly. CARDIOVASCULAR: S1 and S2 present. No murmurs, rubs, or gallops. PULMONARY: Significant wheezing on exam bilaterally which is an improvement from no air movement and diffuse rhonchi bilaterally ABDOMEN: Soft, nontender, nondistended, normoactive bowel sounds. No palpable organomegaly. MUSCULOSKELETAL: No joint swelling or deformity. EXTREMITIES: No cyanosis, clubbing, or pedal edema. NEUROLOGICAL: Gross neurological examination did not reveal any focal deficits. SKIN: No rashes. - Labs CBC & Chem 7: 08/04/19 06:43 08/04/19 06:43 Labs: Abnormal Lab Results - Last 24 Hours (Table) 08/04/19 08/04/19 Range/Units 06:43 06:43 WBC 13.0 H (3.8-10.6) k/uL Hgb 12.0 L (13.0-17.5) gm/dL Hct 37.1 L (39.0-53.0) % Potassium 3.4 L (3.5-5.1) mmol/L Carbon Dioxide 36 H (22-30) mmol/L Creatinine 0.63 L (0.66-1.25) mg/dL Glucose 132 H (74-99) mg/dL Assessment and Plan Plan: Acute on chronic hypercapnic respiratory failure secondary to COPD exacerbation patient will be started on systemic steroids inhalational treatments. Patient may have pneumonia patient will be treated for staphylococcal pneumonia as well as and with pneumonia pulmonary evaluated the patient my suspicion is low for Aspergillus cavitary lesion and suspicion is low for tuberculosis as well. And uses 2 L of oxygen at home presently on 2 L. Sputum cultures are pending. 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 This carotid lesion appears to be old. Patient follows with Dr. Carnes as an outpatient. -Leukocytosis secondary to pneumonia as mentioned above, no eosinophilia on the CBC -Severe emphysema and COPD -Past esophageal reflux disease -Hypertension -hyperlipidemia -DVT prophylaxis subcutaneous heparin
[2019-08-04] MEDS: ATORVASTATIN 10 MG TAB PO SCH (21:22)
[2019-08-05] MEDS: VANCOMYCIN 1,250 MG in SODIUM CHLORIDE 0.9% 250 ML IVPB SCH ×3 (07:02→21:05)
[2019-08-05] MEDS: SODIUM CHLORIDE 0.9% 1,000 ML IV SCH ×3 (07:04→22:27)
[2019-08-05] MEDS: PANTOPRAZOLE 40 MG TABLET PO SCH (07:04)
[2019-08-05] MEDS: IPRATROPIUM-ALBUTEROL 3 ML NEB INHALATION SCH ×4 (08:13→19:40)
[2019-08-05] MEDS: FORMOTEROL FUMARATE 20 MCG/2 ML NEBU INHALATION SCH ×2 (08:13→19:40)
[2019-08-05] MEDS: BUDESONIDE 1 MG/2 ML NEBU INHALATION SCH ×2 (08:14→19:40)
[2019-08-05] MEDS: methylPREDNISolone SOD SUCCI 40 MG/ML 1 ML VIAL IV SCH ×2 (09:18→15:42)
[2019-08-05] MEDS: MONTELUKAST 10 MG TAB PO SCH (09:19)
[2019-08-05] MEDS: THEOPHYLLINE 24 HOUR 300 MG CAP.ER.24H PO SCH (09:19)
[2019-08-05] MEDS: HEPARIN SODIUM,PORCINE 5,000 UNIT/ML 1 ML VIAL SQ SCH ×2 (09:19→20:12)
[2019-08-05] MEDS: PIPERACILLIN-TAZOBACTAM 3.375 GM in SODIUM CHLORIDE 0.9% 100 ML IVPB SCH ×2 (09:19→16:30)
[2019-08-05] MEDS: clonazePAM 0.5 MG TAB PO PRN (09:28)
--- NOTE | 2019-08-05 10:49 | P.PN ---
Subjective Progress Note Date: 08/05/19 Principal diagnosis: Shortness of breath, chills, cough 74-year-old male patient with history of severe COPD, with baseline FEV1 of 0.48 L or 15% of predicted with diffusion abnormality, chronic hypoxemic respiratory failure, hypertension, anxiety, hyperlipidemia, former smoking history. He follows with Dr. Carnes in the pulmonary clinic, patient is on maintenance dose of prednisone 10 mg daily, Spiriva, DuoNeb, Symbicort, theophylline, and Mucinex. Patient presented to the hospital for evaluation of increasing dyspnea, cough, chills, weakness, reduction of greenish colored sputum. Patient was initially evaluated at [facility], and chest x-rays performed showing cavitating lesion in the right upper lobe concerning for fungal versus neoplastic versus TB. Patient was started on Levaquin, patient was transferred to [facility] for further management, and CT chest with contrast was obtained showing a 7.0 x 4.1 cm cavitary structure with fluid level in the left upper lobe extending into the left lung apex that could reflect infected Although cavitary neoplasm with catheter infection not excluded, severe bullous emphysema was noted. she was started on empiric antibiotics,in the form of Zosyn and vancomycin, nebulized bronchodilators and he is being admitted for further management. On 08/02/2019 patient seen in follow-up on selective care unit, still dyspneic with conversation, but no acute distress, he states his breathing is probably about the same, no fever, denies chills, occasional nonproductive cough, unable to bring up any sputum, currently on 2 L of oxygen with a pulse ox of 93%, he denies any chest pain on today's exam, lung sounds reveal diminished breath sounds with crackles over anterior lateral left chest. End expiratory wheezes, patient is on a combination of Zosyn and vancomycin. On oral prednisone 40 mg daily, Symbicort, breathing treatments, it is labs have been reviewed, showing white blood cell count 20.4, hemoglobin of 12.1, serum sodium was 135, the rest of the electrolytes and renal profile were within the normal limits. On 08/04/2019 patient seen in follow-up on selective care unit, still dyspneic, but he states he is slightly improved, remains on 2 L of oxygen and his pulse ox is 92%, he still unable to bring up any sputum, his cough does not sound very congested, he is afebrile, hemodynamically patient is stable, he is very dyspneic with any exertion, but he has been up and walking to the bathroom, requires frequent rest periods, but not far off his baseline. On the regular basis patient activity level is limited, he is able to ambulate about the house, and he breaks up his activities of daily living into manageable tasks. Lung sounds reveal coarse crackles over left upper lung, and expiratory wheezes, and diminished breath sounds bilaterally. Patient remains on a combination of Zosyn and vancomycin. He has been unable to provide a sputum culture. On 08/05/2019 patient seen in follow-up on [facility] care unit. Awake and alert, he is still very short of breath with any activity, but he was able to get up in the chair, sit up for meals, does require rest periods in between, currently on 2 L of oxygen with a pulse ox of 92%, hemodynamically patient is stable, he [place] any fever or chills, he started to bring up small amounts of phlegm, sputum sample was sent down for culture and is pending at this time, no new labs, no new chest x-rays, remains on Zosyn and vancomycin for abiotic coverage, remains on IV Solu-Medrol and breathing treatments, slowly improving Objective - Vital Signs Vital signs: Vital Signs Temp 97.9 F 08/05/19 04:00 Pulse 112 H 08/05/19 08:37 Resp 24 08/05/19 04:00 BP 186/97 08/05/19 04:00 Pulse Ox 92 L 08/05/19 04:00 Intake & Output 08/04/19 08/05/19 08/05/19 18:59 06:59 18:59 Intake Total 360 360 Output Total 400 250 625 Balance -40 -250 -265 Weight 64 kg 66 kg Intake: Oral 360 360 Output: Urine 400 250 625 Other: Voiding Method Urinal Urinal # Voids 1 1 1 - Exam GENERAL EXAM: Alert, very dyspneic, 74-year-old white male, on 2 L of oxygen, dyspneic with any conversation HEAD: Normocephalic/atraumatic. EYES: Normal reaction of pupils, equal size. Conjunctiva pink, sclera white. NOSE: Clear with pink turbinates. THROAT: No erythema or exudates. NECK: No masses, no JVD, no thyroid enlargement, no adenopathy. CHEST: No chest wall deformity. Symmetrical expansion. LUNGS: Equal air entry with diminished breath sounds bilaterally, crackles over left upper lateral chest anteriorly, diminished air entry bilaterally, end expiratory wheezes CVS: Regular rate and rhythm, normal S1 and S2, no gallops, no murmurs, no rubs ABDOMEN: Soft, nontender. No hepatosplenomegaly, normal bowel sounds, no guarding or rigidity. EXTREMITIES: No clubbing, no edema, no cyanosis, 2+ pulses and upper and lower extremities. MUSCULOSKELETAL: Muscle strength and tone normal. SPINE: No scoliosis or deformity SKIN: No rashes CENTRAL NERVOUS SYSTEM: Alert and oriented -3. No focal deficits, tone is normal in all 4 extremities. PSYCHIATRIC: Alert and oriented -3. Appropriate affect. Intact judgment and insight. - Labs CBC & Chem 7: 08/04/19 06:43 08/04/19 06:43 Labs: Microbiology - Last 24 Hours (Table) 08/04/19 12:45 Gram Stain - Preliminary Sputum Assessment and Plan Plan: assessment: #1. acute pneumonia, CT chest showed a 7.0 x 4.1 cm cavitary structure with fluid level in the left upper lobe likely infected bulla or cavitary neoplasm cavitary infection #2. Severe COPD, with the baseline FEV1 of 15% of predicted in 2015 with diffusion abnormality. Severe bullous emphysema noted #3. Chronic hypoxemic respiratory failure #5. Hypertension #6. Hyperlipidemia #7. Previous episodes of pneumonia #8.Former smoker #9. Anxiety #10. Chronic bronchial asthma, unspecified plan: We'll obtain a follow-up chest x-ray today, sputum cultures pending, no fever or chills, continue Zosyn and vancomycin, will await the results of the sputum culture, increase activity as tolerated, continue current dose of IV Solu-Medrol and nebulized bronchodilators. Slowly improving, will review results of the chest x-ray. We'll follow I performed a history & physical examination of the patient and discussed their management with my nurse practitioner, Chichi Youssef. I reviewed the nurse practitioner's note and agree with the documented findings and plan of care. Lung sounds are positive for diminished breath sounds. The findings and the impression was discussed with the patient. I attest to the documentation by the nurse practitioner. Time with Patient: Less than 30
[2019-08-05] MEDS ORDERED: VANCOMYCIN TROUGH DUE 1 EACH MISC MISCELLANE ONE (11:00)
--- NOTE | 2019-08-05 11:35 | XR ---
EXAMINATION TYPE: XR chest 1V portable DATE OF EXAM: 08/05/2019 HISTORY: Shortness of breath. COMPARISON: 08/03/2019 TECHNIQUE: Single view of the chest is submitted. FINDINGS: Demonstrated are scattered senescent parenchymal change. Hyperinflation is compatible with COPD. Left upper lobe cavitary infiltrate persists although may be slightly improved. Continued follow-up u ntil resolution is advised. The heart is stable. Hilar and mediastinal structures are within normal limits. Degenerative changes are seen of the dorsal spine. IMPRESSION: 1. Left upper lobe cavitary infiltrate persists although may be slightly improved. Continued follow- up until resolution is advised.
[2019-08-05 13:40] LABS: African American GFR (CKD) >90 (>60 ml/min/1.73 sqM); Blood Urea Nitrogen 17 mg/dL (9-20); Chloride 99 mmol/L (98-107); Glucose 144 mg/dL (74-99); Non-African American GFR(CKD) >90 (>60 ml/min/1.73 sqM); Potassium 3.9 mmol/L (3.5-5.1); Sodium 142 mmol/L (137-145)
[2019-08-05 13:46] LABS: Anion Gap 6 mmol/L
[2019-08-05 14:27] LABS: Carbon Dioxide 37 mmol/L (22-30)
--- NOTE | 2019-08-05 15:06 | P.PN ---
Subjective Progress Note Date: 08/05/19 Principal diagnosis: 74-year-old pleasant male with known history of COPD quit smoking in 1998 does have advanced COPD with FEV1 of around 10, advanced COPD came in with compensati ve shortness of breath, night sweats. Patient was complaining of occasional cough unable to bring up much after breathing treatments he is bringing up a bit. X-ray was suspicious for cavities and patient was subsequently sent in here. Patient denied any event. Patient denied any exposure to tumor closest contact denied any travel denied any incarceration. Patient denied any significant recent weight loss. Patient CAT scan was done here which showed a cavitary lesion but there is no lymphadenopathy that we normally see in BP. Patient had significant emphysema with massive bullae. I did review the CAT scan images. Patient does have been a cavitary infiltrate significant with the air bronchogram and pneumonia in that area cannot be ruled out. Pulmonary was consulted. Patient is admitted for a pneumonia and a cavitary lesion along with COPD exacerbation patient is feeling much better now patient is on systemic steroids and antibiotics. 08/03/2019 patient is wheezing respiratory status minimally improved 08/04/2019 Patient has significant expiratory wheezing which is better compared to admission as he was not moving air at all. Patient although feeling better not ready to go home. Constitutional: Denied any fatigue denied any fever. Cardio vascular: denied any chest pain, palpitations Gastrointestinal denied any nausea vomiting Pulmonary: As mentioned and will history Neurologic denied any new focal deficits All inpatient medications were reviewed and appropriate changes in these medications as dictated in the interval history and assessment and plan. 08/05/2019 Patient is sitting up in bed and appears to be in no acute distress. Patient continues to have some shortness of breath although states it is slightly improved. Patient is having a lot of coughing and unable to expectorate. Preliminary sputum culture shows Mireya albicans and Diflucan was ordered. Patient is currently maintained on IV antibiotics in the form of Vanco and Zosyn and will continue at this time. Will await culture finalization. Review of systems: Cardiovascular: No reports of chest pain or palpitations Respiratory: Reports shortness of breath and cough GI: No reports of nausea, vomiting, or diarrhea : No reports of dysuria or retention Objective - Vital Signs Vital signs: Vital Signs Temp 97.7 F 08/05/19 12:10 Pulse 113 H 08/05/19 12:10 Resp 18 08/05/19 12:10 BP 150/102 08/05/19 12:10 Pulse Ox 92 L 08/05/19 04:00 Intake & Output 08/04/19 08/05/19 08/05/19 18:59 06:59 18:59 Intake Total 360 360 Output Total 652 868 9613 Balance -40 -887 -791 Weight 64 kg 66 kg Intake: Oral 360 360 Output: Urine 994 001 9466 Other: Voiding Method Urinal Urinal # Voids 1 1 1 - Exam GENERAL: The patient is alert and oriented x3, not in any acute distress. Well developed, well nourished. HEENT: Pupils are round and equally reacting to light. EOMI. No scleral icterus. No conjunctival pallor. Normocephalic, atraumatic. No pharyngeal erythema. No thyromegaly. CARDIOVASCULAR: S1 and S2 present. No murmurs, rubs, or gallops. PULMONARY: Significant wheezing on exam bilaterally which is an improvement from no air movement and diffuse rhonchi bilaterally ABDOMEN: Soft, nontender, nondistended, normoactive bowel sounds. No palpable organomegaly. MUSCULOSKELETAL: No joint swelling or deformity. EXTREMITIES: No cyanosis, clubbing, or pedal edema. NEUROLOGICAL: Gross neurological examination did not reveal any focal deficits. SKIN: No rashes. - Labs CBC & Chem 7: 08/04/19 06:43 08/05/19 13:13 Labs: Abnormal Lab Results - Last 24 Hours (Table) 08/05/19 Range/Units 13:13 Carbon Dioxide 37 H (22-30) mmol/L Creatinine 0.61 L (0.66-1.25) mg/dL Glucose 144 H (74-99) mg/dL Microbiology - Last 24 Hours (Table) 08/04/19 12:45 Gram Stain - Preliminary Sputum Sputum Culture - Preliminary Mireya albicans Assessment and Plan Assessment: -Acute on chronic hypercapnic respiratory failure secondary to COPD exacerbation patient will be started on systemic steroids inhalational treatments. Patient may have pneumonia patient will be treated for staphylococcal pneumonia as well as and with pneumonia pulmonary evaluated the patient my suspicion is low for Aspergillus cavitary lesion and suspicion is low for tuberculosis as well. And uses 2 L of oxygen at home presently on 2 L. Sputum cultures are pending. So far I don't have any sputum culture results. Sputum cultures preliminary show Mireya albicans and Diflucan was ordered. Will continue to await for finalization. 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 This cavitary lesion appears to be old. Patient follows with Dr. Carnes as an outpatient. -Leukocytosis secondary to pneumonia as mentioned above, no eosinophilia on the CBC; currently white blood count is improved at 13.0 -Severe emphysema and COPD -Past esophageal reflux disease -Hypertension -hyperlipidemia -DVT prophylaxis subcutaneous heparin
[2019-08-05] MEDS: FLUCONAZOLE 100 MG TAB PO SCH (15:42)
[2019-08-05] MEDS: amLODIPine 5 MG TAB PO SCH ×2 (16:32→20:12)
[2019-08-05] MEDS: ATORVASTATIN 10 MG TAB PO SCH (20:12)
[2019-08-05 22:18] LABS: Glucose,Whole Blood 154 mg/dL (75-99)
[2019-08-06] MEDS: methylPREDNISolone SOD SUCCI 40 MG/ML 1 ML VIAL IV SCH ×4 (00:32→23:37)
[2019-08-06] MEDS: PIPERACILLIN-TAZOBACTAM 3.375 GM in SODIUM CHLORIDE 0.9% 100 ML IVPB SCH ×4 (00:32→23:38)
[2019-08-06] MEDS: VANCOMYCIN 1,250 MG in SODIUM CHLORIDE 0.9% 250 ML IVPB SCH ×2 (04:54→17:32)
[2019-08-06] MEDS: SODIUM CHLORIDE 0.9% 1,000 ML IV SCH (04:54)
[2019-08-06 07:19] LABS: Glucose,Whole Blood 116 mg/dL (75-99)
[2019-08-06 07:49] LABS: African American GFR (CKD) >90 (>60 ml/min/1.73 sqM); Non-African American GFR(CKD) >90 (>60 ml/min/1.73 sqM)
[2019-08-06] MEDS: IPRATROPIUM-ALBUTEROL 3 ML NEB INHALATION SCH ×4 (08:04→19:25)
[2019-08-06] MEDS: FORMOTEROL FUMARATE 20 MCG/2 ML NEBU INHALATION SCH ×2 (08:04→19:25)
[2019-08-06] MEDS: BUDESONIDE 1 MG/2 ML NEBU INHALATION SCH ×2 (08:04→19:25)
[2019-08-06] MEDS: MONTELUKAST 10 MG TAB PO SCH (08:41)
[2019-08-06] MEDS: PANTOPRAZOLE 40 MG TABLET PO SCH (08:41)
[2019-08-06] MEDS: THEOPHYLLINE 24 HOUR 300 MG CAP.ER.24H PO SCH (08:41)
[2019-08-06] MEDS: FLUCONAZOLE 100 MG TAB PO SCH (08:41)
[2019-08-06] MEDS: amLODIPine 5 MG TAB PO SCH ×2 (08:41→21:20)
[2019-08-06] MEDS: HEPARIN SODIUM,PORCINE 5,000 UNIT/ML 1 ML VIAL SQ SCH ×2 (08:41→21:20)
[2019-08-06] MEDS: clonazePAM 0.5 MG TAB PO PRN (08:43)
[2019-08-06] MEDS ORDERED: VANCOMYCIN TROUGH DUE 1 EACH MISC MISCELLANE ONE (11:00)
[2019-08-06 11:33] LABS: Glucose,Whole Blood 129 mg/dL (75-99)
--- NOTE | 2019-08-06 14:17 | P.PN ---
Subjective Progress Note Date: 08/06/19 Principal diagnosis: Acute pneumonia, CT chest showed a 7.0 x 4.1 cm cavitary structure with fluid level in the left upper lobe likely infected bulla or cavitary neoplasm cavitary infection 74-year-old male patient with history of severe COPD, with baseline FEV1 of 0.48 L or 15% of predicted with diffusion abnormality, chronic hypoxemic respiratory failure, hypertension, anxiety, hyperlipidemia, former smoking history. He follows with Dr. Carnes in the pulmonary clinic, patient is on maintenance dose of prednisone 10 mg daily, Spiriva, DuoNeb, Symbicort, theophylline, and Mucinex. Patient presented to the hospital for evaluation of increasing dyspnea, cough, chills, weakness, reduction of greenish colored sputum. Patient was initially evaluated at [facility], and chest x-rays performed showing cavitating lesion in the right upper lobe concerning for fungal versus neoplastic versus TB. Patient was started on Levaquin, patient was transferred to [facility] for further management, and CT chest with contrast was obtained showing a 7.0 x 4.1 cm cavitary structure with fluid level in the left upper lobe extending into the left lung apex that could reflect infected Although cavitary neoplasm with catheter infection not excluded, severe bullous emphysema was noted. she was started on empiric antibiotics,in the form of Zosyn and vancomycin, nebulized bronchodilators and he is being admitted for further management. On 08/02/2019 patient seen in follow-up on selective care unit, still dyspneic with conversation, but no acute distress, he states his breathing is probably about the same, no fever, denies chills, occasional nonproductive cough, unable to bring up any sputum, currently on 2 L of oxygen with a pulse ox of 93%, he denies any chest pain on today's exam, lung sounds reveal diminished breath sounds with crackles over anterior lateral left chest. End expiratory wheezes, patient is on a combination of Zosyn and vancomycin. On oral prednisone 40 mg daily, Symbicort, breathing treatments, it is labs have been reviewed, showing white blood cell count 20.4, hemoglobin of 12.1, serum sodium was 135, the rest of the electrolytes and renal profile were within the normal limits. The patient is seen today 08/03/2019 in follow-up on the selective care unit. He is currently resting comfortably in bed. Awake and alert in no acute di stress. He is breathing a bit better today as compared to yesterday. Less cough and congestion. He is maintaining O2 saturation in the low 90s on 2 L/m per nasal cannula. He is afebrile. Slightly tachycardic. Creatinine 0.69. Lactic acid 1.7. He remains on DuoNeb inhalations, Pulmicort and Perforomist inhalations, IV Cymetra, Mucinex, theophylline. Antibiotics in the form of vancomycin and Zosyn. Today's chest x-ray continues to show the left upper lobe infiltrate. On 08/04/2019 patient seen in follow-up on selective care unit, still dyspneic, but he states he is slightly improved, remains on 2 L of oxygen and his pulse ox is 92%, he still unable to bring up any sputum, his cough does not sound very congested, he is afebrile, hemodynamically patient is stable, he is very dyspnei c with any exertion, but he has been up and walking to the bathroom, requires frequent rest periods, but not far off his baseline. On the regular basis patient activity level is limited, he is able to ambulate about the house, and he breaks up his activities of daily living into manageable tasks. Lung sounds reveal coarse crackles over left upper lung, and expiratory wheezes, and diminished breath sounds bilaterally. Patient remains on a combination of Zosyn and vancomycin. He has been unable to provide a sputum culture. On 08/05/2019 patient seen in follow-up on [facility] care unit. Awake and alert, he is still very short of breath with any activity, but he was able to get up in the chair, sit up for meals, does require rest periods in between, currently on 2 L of oxygen with a pulse ox of 92%, hemodynamically patient is stable, he [place] any fever or chills, he started to bring up small amounts of phlegm, sputum sample was sent down for culture and is pending at this time, no new labs, no new chest x-rays, remains on Zosyn and vancomycin for abiotic coverage, remains on IV Solu-Medrol and breathing treatments, slowly improving The patient is seen today 08/06/2019 in follow-up on the regular medical floor. He is currently resting comfortably in bed. More awake and alert. Less short of breath. More active. Maintaining O2 saturations in the 90s on 5 L/m per nasal cannula. Sputum positive for Mireya. Continued on DuoNeb inhalations, Pulmicort and Perforomist inhalations, IV Solu-Medrol, theophylline, Diflucan. He is also on vancomycin and Zosyn. Most recent chest x-ray shows slightly improved left upper lobe cavitary infiltrate. Objective - Vital Signs Vital signs: Vital Signs Temp 97.9 F 08/06/19 08:00 Pulse 106 H 08/06/19 11:44 Resp 18 08/06/19 08:45 BP 160/98 08/06/19 08:00 Pulse Ox 92 L 08/06/19 08:06 Intake & Output 08/05/19 08/06/19 08/06/19 18:59 06:59 18:59 Intake Total 360 118 Output Total 1075 850 720 Balance -715 -850 -602 Weight 66 kg Intake: Oral 360 118 Output: Urine 1075 850 720 Other: Voiding Method Urinal # Voids 1 1 1 - Exam GENERAL EXAM: Alert, pleasant 74-year-old male patient, on 2 L of oxygen, less dyspneic with conversation and activity HEAD: Normocephalic/atraumatic. EYES: Normal reaction of pupils, equal size. Conjunctiva pink, sclera white. NOSE: Clear with pink turbinates. THROAT: No erythema or exudates. NECK: No masses, no JVD, no thyroid enlargement, no adenopathy. CHEST: No chest wall deformity. Symmetrical expansion. LUNGS: Equal air entry with diminished breath sounds bilaterally, crackles over left upper lateral chest anteriorly, end expiratory wheezes CVS: Regular rate and rhythm, normal S1 and S2, no gallops, no murmurs, no rubs ABDOMEN: Soft, nontender. No hepatosplenomegaly, normal bowel sounds, no guarding or rigidity. EXTREMITIES: No clubbing, no edema, no cyanosis, 2+ pulses and upper and lower extremities. MUSCULOSKELETAL: Muscle strength and tone normal. SPINE: No scoliosis or deformity SKIN: No rashes CENTRAL NERVOUS SYSTEM: No focal deficits, tone is normal in all 4 extremities. PSYCHIATRIC: Alert and oriented -3. Appropriate affect. Intact judgment and insight. - Labs CBC & Chem 7: 08/04/19 06:43 08/06/19 06:48 Labs: Abnormal Lab Results - Last 24 Hours (Table) 08/05/19 08/05/19 08/06/19 Range/Units 13:13 22:16 07:17 Carbon Dioxide 37 H (22-30) mmol/L Creatinine 0.61 L (0.66-1.25) mg/dL Glucose 144 H (74-99) mg/dL POC Glucose (mg/dL) 154 H 116 H (75-99) mg/dL 08/06/19 Range/Units 11:32 Carbon Dioxide (22-30) mmol/L Creatinine (0.66-1.25) mg/dL Glucose (74-99) mg/dL POC Glucose (mg/dL) 129 H (75-99) mg/dL Microbiology - Last 24 Hours (Table) 08/04/19 12:45 Gram Stain - Final Sputum Sputum Culture - Final Mireya albicans Assessment and Plan Assessment: 1 Acute pneumonia, CT chest showed a 7.0 x 4.1 cm cavitary structure with fluid level in the left upper lobe likely infected bulla or cavitary neoplasm cavitary infection, slight improvement on recent chest x-ray 2 Severe COPD, with the baseline FEV1 of 15% of predicted in 2015 with diffusion abnormality. Severe bullous emphysema noted 3 Chronic hypoxemic respiratory failure 4 Hypertension 5 Hyperlipidemia 6 Previous episodes of pneumonia 7 Former smoker 8 Anxiety 9 Chronic bronchial asthma, unspecified Plan: The patient was seen and evaluated by Dr. Smith Chest x-ray showing improvement Titrate down the FiO2 as tolerated Continue vancomycin and Zosyn Continue bronchodilators and IV steroids Avoid bronchoscopy if possible due to the patient's severe bullous emphysema and poor lung function Continue to follow and make further recommendations based on his clinical status I, the cosigning physician, performed a history & physical examination of the patient. Lungs sounds bilateral end expiratory wheeze be scattered rhonchi more so on the left anterior chest. Maintaining good O2 saturations in the 90s on 5 L/m per nasal cannula. I discussed the assessment and plan of care with my nurse practitioner, Tamica Conrad. I attest to the above note as dictated by her.
[2019-08-06 16:57] LABS: Glucose,Whole Blood 130 mg/dL (75-99)
[2019-08-06 20:50] LABS: Glucose,Whole Blood 163 mg/dL (75-99)
[2019-08-06] MEDS: ATORVASTATIN 10 MG TAB PO SCH (21:20)
--- NOTE | 2019-08-06 21:50 | PN ---
PROGRESS NOTE DATE OF SERVICE: 08/06/2019 This 74-year-old gentleman who was admitted with COPD acute exacerbation with acute on chronic hypercapnic hypoxic respiratory failure also had significant chest lesions left upper lobe with possibly cavitary lesions also. Dr. Smith is following the patient closely. Infected bullae or cavitary neoplasm are also under the differential diagnosis. The sputum culture showed Mireya albicans. Most recent chest x-ray personally reviewed by me. PAST MEDICAL HISTORY: Reviewed. REVIEW OF SYSTEMS: Cardiovascular system: No angina or palpitations. RESPIRATORY: As mentioned earlier. GI no nausea or vomiting. no dysuria or hematuria. CENTRAL NERVOUS SYSTEM: No numbness or weakness. CURRENT MEDICATIONS: Reviewed and include: 1. Tylenol 650 q.6h p.r.n. 2. DuoNeb q.i.d. and p.r.n. 3. Norvasc. 4. Lipitor. 5. Pulmicort. 6. Klonopin. 7. Diflucan. 8. Perforomist. 9. Mucinex. 10.Solu-Medrol 40 IV q.8h. 11.Narcan. 12.Zofran. 13.Protonix. 14.Zosyn IV. 15.Vancomycin IV. PHYSICAL EXAMINATION: Patient is alert, oriented x3. Pulse is 110, blood pressure is 144/80, respiration 18, temperature 98.1, pulse ox 94% on 5 L. HEENT: Conjunctivae normal. NECK: No jugular venous distention. CARDIOVASCULAR: S1, S2 muffled. RESPIRATORY: Breath sounds diminished in the bases. Bilateral scattered rhonchi and crackles. Expiratory wheezing also present. ABDOMEN: Soft, nontender. LEGS are no edema. No swelling. CENTRAL NERVOUS SYSTEM: No focal deficits. LABS: At this time shows WBC 13, hemoglobin 12, otherwise sodium 142, potassium 3.9, glucose 154. ASSESSMENT: 1. Chronic obstructive pulmonary disease acute exacerbation with acute on chronic hypoxic hypercarbic respiratory failure. 2. Possible left upper lobe pneumonia possibly gram-negative. 3. Mireya from the sputum. 4. Cavitary lesion in the left upper lobe, possibly infected bullae versus malignancy versus cavitating pneumonia. 5. Leukocytosis. 6. Anemia of chronic disease. 7. Hypokalemia. 8. Increased random blood sugar. 9. Hyponatremia. 10.History of asthma/chronic obstructive pulmonary disease. 11.History of gastroesophageal reflux disease. 12.Hypertension. 13.Hyperlipidemia. 14.History of severe chronic obstructive pulmonary disease. 15.History of anxiety. 16.Remote history of nicotine dependence. RECOMMENDATIONS AND DISCUSSION: This 74-year-old gentleman who presented with multiple complex medical issues, we will monitor the patient closely. Continue the current medications, management and symptomatic treatment. Optimize bronchodilator treatment. Continue the antibiotics and antifungals. Patient is still on IV steroids. DVT prophylaxis. Otherwise, we will stop the IV fluids. The patient is also on vancomycin. Guarded prognosis because of multiple complex medical issues. Further recommendations to follow. MMODL / IJN: [id number] /
[2019-08-07] MEDS: VANCOMYCIN 1,250 MG in SODIUM CHLORIDE 0.9% 250 ML IVPB SCH ×2 (05:39→17:41)
[2019-08-07 06:57] LABS: Glucose,Whole Blood 162 mg/dL (75-99)
[2019-08-07] MEDS: amLODIPine 5 MG TAB PO SCH ×2 (07:58→23:02)
[2019-08-07] MEDS: PANTOPRAZOLE 40 MG TABLET PO SCH (07:58)
[2019-08-07] MEDS: FLUCONAZOLE 100 MG TAB PO SCH (07:59)
[2019-08-07] MEDS: PIPERACILLIN-TAZOBACTAM 3.375 GM in SODIUM CHLORIDE 0.9% 100 ML IVPB SCH ×2 (07:59→16:24)
[2019-08-07] MEDS: methylPREDNISolone SOD SUCCI 40 MG/ML 1 ML VIAL IV SCH ×2 (07:59→16:24)
[2019-08-07] MEDS: MONTELUKAST 10 MG TAB PO SCH (07:59)
[2019-08-07] MEDS: THEOPHYLLINE 24 HOUR 300 MG CAP.ER.24H PO SCH (07:59)
[2019-08-07] MEDS: HEPARIN SODIUM,PORCINE 5,000 UNIT/ML 1 ML VIAL SQ SCH ×2 (07:59→23:02)
[2019-08-07 08:07] LABS: African American GFR (CKD) >90 (>60 ml/min/1.73 sqM); Non-African American GFR(CKD) 90 (>60 ml/min/1.73 sqM)
[2019-08-07 08:41] LABS: HCT 42.7 % (39.0-53.0); HGB 13.4 gm/dL (13.0-17.5); Hypochromasia Slight; MCHC 31.4 g/dL (31.0-37.0); Mean Platelet Volume 7.3; Platelet Count 220 k/uL (150-450); RBC 4.96 m/uL (4.30-5.90); RDW 14.8 % (11.5-15.5); WBC 12.4 k/uL (3.8-10.6)
[2019-08-07] MEDS: FORMOTEROL FUMARATE 20 MCG/2 ML NEBU INHALATION SCH ×2 (08:48→20:25)
[2019-08-07] MEDS: BUDESONIDE 1 MG/2 ML NEBU INHALATION SCH ×2 (08:48→20:25)
[2019-08-07] MEDS: IPRATROPIUM-ALBUTEROL 3 ML NEB INHALATION SCH ×4 (08:48→20:25)
--- NOTE | 2019-08-07 09:21 | XR ---
EXAMINATION TYPE: XR chest 1V portable DATE OF EXAM: 08/07/2019 COMPARISON: 08/05/2019 HISTORY: Cough TECHNIQUE: Single frontal view of the chest is obtained. FINDINGS: Demonstrated are scattered senescent parenchymal change. Hyperinflation is compatible with COPD. Left upper lobe cavitary infiltrate persists. Continued follow-up until resolution is advised. The heart is stable. Hilar and mediastinal structures are within normal limits. Degenerative changes are seen of the dorsal spine. IMPRESSION: 1. Stable left upper lobe cavitating infiltrate or mass unchanged from the prior exam.
[2019-08-07 11:48] LABS: Glucose,Whole Blood 161 mg/dL (75-99)
--- NOTE | 2019-08-07 12:23 | P.PN ---
Subjective Progress Note Date: 08/07/19 Principal diagnosis: Shortness of breath, chills, cough 74-year-old male patient with history of severe COPD, with baseline FEV1 of 0.48 L or 15% of predicted with diffusion abnormality, chronic hypoxemic respiratory failure, hypertension, anxiety, hyperlipidemia, former smoking history. He follows with Dr. Carnes in the pulmonary clinic, patient is on maintenance dose of prednisone 10 mg daily, Spiriva, DuoNeb, Symbicort, theophylline, and Mucinex. Patient presented to the hospital for evaluation of increasing dyspnea, cough, chills, weakness, reduction of greenish colored sputum. Patient was initially evaluated at [facility], and chest x-rays performed showing cavitating lesion in the right upper lobe concerning for fungal versus neoplastic versus TB. Patient was started on Levaquin, patient was transferred to [facility] for further management, and CT chest with contrast was obtained showing a 7.0 x 4.1 cm cavitary structure with fluid level in the left upper lobe extending into the left lung apex that could reflect infected Although cavitary neoplasm with catheter infection not excluded, severe bullous emphysema was noted. she was started on empiric antibiotics,in the form of Zosyn and vancomycin, nebulized bronchodilators and he is being admitted for further management. On 08/02/2019 patient seen in follow-up on selective care unit, still dyspneic with conversation, but no acute distress, he states his breathing is probably about the same, no fever, denies chills, occasional nonproductive cough, unable to bring up any sputum, currently on 2 L of oxygen with a pulse ox of 93%, he denies any chest pain on today's exam, lung sounds reveal diminished breath sounds with crackles over anterior lateral left chest. End expiratory wheezes, patient is on a combination of Zosyn and vancomycin. On oral prednisone 40 mg daily, Symbicort, breathing treatments, it is labs have been reviewed, showing white blood cell count 20.4, hemoglobin of 12.1, serum sodium was 135, the rest of the electrolytes and renal profile were within the normal limits. On 08/04/2019 patient seen in follow-up on selective care unit, still dyspneic, but he states he is slightly improved, remains on 2 L of oxygen and his pulse ox is 92%, he still unable to bring up any sputum, his cough does not sound very congested, he is afebrile, hemodynamically patient is stable, he is very dyspneic with any exertion, but he has been up and walking to the bathroom, requires frequent rest periods, but not far off his baseline. On the regular basis patient activity level is limited, he is able to ambulate about the house, and he breaks up his activities of daily living into manageable tasks. Lung sounds reveal coarse crackles over left upper lung, and expiratory wheezes, and diminished breath sounds bilaterally. Patient remains on a combination of Zosyn and vancomycin. He has been unable to provide a sputum culture. On 08/05/2019 patient seen in follow-up on selective care unit. Awake and alert, he is still very short of breath with any activity, but he was able to get up in the chair, sit up for meals, does require rest periods in between, currently on 2 L of oxygen with a pulse ox of 92%, hemodynamically patient is stable, he Nuys any fever or chills, he started to bring up small amounts of phlegm, sputum sample was sent down for culture and is pending at this time, no new labs, no new chest x-rays, remains on Zosyn and vancomycin for abiotic coverage, remains on IV Solu-Medrol and breathing treatments, slowly improving On 08/06/2019 patient seen in follow-up on medical surgical floor. They have 5 L of oxygen with a pulse ox of 96%, afebrile, hemodynamically stable, patient is very dyspneic with any exertion, requiring frequent periods of rest, overall he states he is improving, no acute events overnight. Sputum culture has shown no growth other than Mireya albicans which could be oral contamination, patient was started on Diflucan, he remains on a combination of Zosyn and vancomycin. No fever or chills, lung sounds reveal diminished breath sounds bilaterally, no rhonchi or wheezing on today's exam. Follow-up chest x-ray was obtained today showing stable left upper lobe cavitating infiltrate. Vital signs have been st able. no complains of chest pain, no hemoptysis, Objective - Vital Signs Vital signs: Vital Signs Temp 97.5 F L 08/07/19 07:00 Pulse 108 H 08/07/19 09:17 Resp 17 08/07/19 08:08 BP 130/80 08/07/19 07:00 Pulse Ox 96 08/07/19 07:00 Intake & Output 08/06/19 08/07/19 08/07/19 18:59 06:59 18:59 Intake Total 218 Output Total 720 550 Balance -502 -550 Intake: Intake, IV Titration 100 Amount Piperacillin-Tazobactam 3 100 .375 gm In Sodium Chloride 0.9% 100 ml @ 25 mls/hr IVPB Q8HR [facility] Rx# :[id number] Oral 118 Output: Urine 720 550 Other: Voiding Method Urinal Urinal # Voids 1 1 - Exam GENERAL EXAM: Alert, very dyspneic, 74-year-old white male, on 2 L of oxygen, dyspneic with any conversation HEAD: Normocephalic/atraumatic. EYES: Normal reaction of pupils, equal size. Conjunctiva pink, sclera white. NOSE: Clear with pink turbinates. THROAT: No erythema or exudates. NECK: No masses, no JVD, no thyroid enlargement, no adenopathy. CHEST: No chest wall deformity. Symmetrical expansion. LUNGS: Equal air entry with diminished breath sounds bilaterally, diminished air entry bilaterally, no wheezes CVS: Regular rate and rhythm, normal S1 and S2, no gallops, no murmurs, no rubs ABDOMEN: Soft, nontender. No hepatosplenomegaly, normal bowel sounds, no guarding or rigidity. EXTREMITIES: No clubbing, no edema, no cyanosis, 2+ pulses and upper and lower extremities. MUSCULOSKELETAL: Muscle strength and tone normal. SPINE: No scoliosis or deformity SKIN: No rashes CENTRAL NERVOUS SYSTEM: Alert and oriented -3. No focal deficits, tone is normal in all 4 extremities. PSYCHIATRIC: Alert and oriented -3. Appropriate affect. Intact judgment and insight. - Labs CBC & Chem 7: 08/07/19 07:12 08/07/19 07:12 Labs: Abnormal Lab Results - Last 24 Hours (Table) 08/06/19 08/06/19 08/07/19 Range/Units 16:56 20:47 06:56 WBC (3.8-10.6) k/uL POC Glucose (mg/dL) 130 H 163 H 162 H (75-99) mg/dL 08/07/19 08/07/19 Range/Units 07:12 11:47 WBC 12.4 H (3.8-10.6) k/uL POC Glucose (mg/dL) 161 H (75-99) mg/dL Microbiology - Last 24 Hours (Table) 08/04/19 12:45 Gram Stain - Final Sputum Sputum Culture - Final Mireya albicans Assessment and Plan Plan: assessment: #1. acute pneumonia, CT chest showed a 7.0 x 4.1 cm cavitary structure with fluid level in the left upper lobe likely infected bulla or cavitary neoplasm cavitary infection #2. Severe COPD, with the baseline FEV1 of 15% of predicted in 2015 with diffusion abnormality. Severe bullous emphysema noted #3. Chronic hypoxemic respiratory failure #5. Hypertension #6. Hyperlipidemia #7. Previous episodes of pneumonia #8.Former smoker #9. Anxiety #10. Chronic bronchial asthma, unspecified plan: Clinically patient's breathing is stable, no fever or chills, sputum culture has revealed no growth, follow-up chest x-ray shows stable left upper lobe cavitating infiltrate, overall improved since admission. Increase activity as tolerated, continue steroids, nebulized bronchodilators. Physical therapy maria alejandra neri was ordered for evaluation for possibility of subacute rehab placement after discharge however patient does not want to consider rehab and would like to go home. We will continue to follow, overall prognosis is guarded. Patient's is extremely short of breath with any activity, he needs frequent rest periods. We'll continue with current antibiotic coverage I performed a history & physical examination of the patient and discussed their management with my nurse practitioner, Chichi Youssef. I reviewed the nurse practitioner's note and agree with the documented findings and plan of care. Lung sounds are positive for diminished breath sounds. The findings and the impression was discussed with the patient. I attest to the documentation by the nurse practitioner. Time with Patient: Less than 30
[2019-08-07 16:47] LABS: Glucose,Whole Blood 159 mg/dL (75-99)
--- NOTE | 2019-08-07 17:59 | PN ---
PROGRESS NOTE DATE OF SERVICE: 08/07/2019 This 74-year-old gentleman who was admitted with COPD acute exacerbation, possible cavitary pneumonia, is being closely monitored at this time. The cultures showed Mireya albicans. Patient is on broad-spectrum IV antibiotics as well as antifungals. Also, Dr. Smith is following the patient closely. The white count is still elevated at 12.4 at this time. PAST MEDICAL HISTORY: Reviewed. REVIEW OF SYSTEMS: Cardiovascular system: No angina or palpitations. Respiration as mentioned earlier. GI no nausea or vomiting. no dysuria or hematuria. Nervous system: No numbness or weakness. CURRENT MEDICATIONS: Current medications are reviewed, which include: 1. Tylenol p.r.n. 2. DuoNeb q.i.d. and p.r.n. 3. Norvasc 5 mg p.o. b.i.d. 4. Lipitor 10 mg q.h.s. 5. Pulmicort 1 mg b.i.d. 6. Klonopin 0.5 mg b.i.d. 7. Epinephrine. 8. Diflucan 100 mg p.o. daily. 9. Perforomist 20 mg b.i.d. 10.Mucinex. 11.Heparin. 12.Solu-Medrol 40 IV q.8h. 13.Singulair. 14.Narcan. 15.Zofran. 16.Protonix. 17.Zosyn IV. 18.Vancomycin 1.25 mg b.i.d. PHYSICAL EXAMINATION: Patient is alert, oriented x3. Pulse is 89. Blood pressure 149/76, respirations 17, temperature 98.1, pulse ox 98% on 5 L. HEENT: Conjunctivae normal. NECK: No JVD. CARDIOVASCULAR: S1, S2 muffled. RESPIRATIONS: Breath sounds diminished in the bases. Bilateral scattered rhonchi and crackles. ABDOMEN: Soft, nontender. LEGS are no edema. No swelling. CENTRAL NERVOUS SYSTEM: No focal deficits. LAB STUDIES: WBC 12.5, hemoglobin 13.5. Accu-Cheks are noted. ASSESSMENT: 1. Chronic obstructive pulmonary disease acute exacerbation with acute on chronic hypercapnic respiratory failure. 2. Possible left upper lobe pneumonia possibly gram-negative with possible cavitation. 3. Mireya albicans from the sputum. 4. Cavitary lesion in the left upper lobe, possibly infected bullae versus malignancy versus cavitary pneumonia. 5. Leukocytosis. 6. Anemia of chronic disease. 7. Hypokalemia. 8. Increased random blood sugar. 9. Hyponatremia. 10.History of asthma, chronic obstructive pulmonary disease. 11.History of gastroesophageal reflux disease. 12.Hypertension. 13.Hyperlipidemia. 14.History of severe chronic obstructive pulmonary disease. 15.History of anxiety. 16.Remote history of nicotine dependence. RECOMMENDATIONS AND DISCUSSION: In this 74-year-old gentleman who was admitted with multiple complex medical issues, at this time, I recommend continue with bronchodilators. Continue with broad-spectrum IV antibiotics, antifungals. The patient is still extremely short of breath. We will closely follow with Dr. Smith. Please note the patient is still currently on IV steroids. We will continue to monitor. The overall prognosis guarded because of multiple complex medical issues. Further recommendations to follow. MMODL / IJN: [id number] /
[2019-08-07 21:46] LABS: Glucose,Whole Blood 183 mg/dL (75-99)
[2019-08-07] MEDS: ATORVASTATIN 10 MG TAB PO SCH (23:02)
[2019-08-08] MEDS: PIPERACILLIN-TAZOBACTAM 3.375 GM in SODIUM CHLORIDE 0.9% 100 ML IVPB SCH ×3 (00:32→15:44)
[2019-08-08] MEDS: methylPREDNISolone SOD SUCCI 40 MG/ML 1 ML VIAL IV SCH ×3 (00:37→15:44)
[2019-08-08] MEDS ORDERED: VANCOMYCIN TROUGH DUE 1 EACH MISC MISCELLANE ONE (05:00)
[2019-08-08 06:02] LABS: Basophils % (A) 0 %; Eosinophils % (A) 0 %; HCT 42.4 % (39.0-53.0); HGB 13.2 gm/dL (13.0-17.5); Lymphocytes # (A) 0.2 k/uL (1.0-4.8); Lymphocytes % (A) 2 %; MCH 26.4 pg (25.0-35.0); MCHC 31.2 g/dL (31.0-37.0); MCV 84.6 fL (80.0-100.0); Mean Platelet Volume 7.3; Monocytes # (A) 0.4 k/uL (0-1.0); Monocytes % (A) 3 %; Neutrophils # (A) 10.3 k/uL (1.3-7.7); Neutrophils % (A) 94 %; Platelet Count 212 k/uL (150-450); RBC 5.02 m/uL (4.30-5.90); RDW 14.8 % (11.5-15.5)
[2019-08-08 06:07] LABS: African American GFR (CKD) >90 (>60 ml/min/1.73 sqM); Anion Gap 1 mmol/L; Blood Urea Nitrogen 22 mg/dL (9-20); Calcium 9.2 mg/dL (8.4-10.2); Carbon Dioxide 38 mmol/L (22-30); Chloride 99 mmol/L (98-107); Glucose 140 mg/dL (74-99); Non-African American GFR(CKD) >90 (>60 ml/min/1.73 sqM); Potassium 3.8 mmol/L (3.5-5.1); Sodium 138 mmol/L (137-145)
[2019-08-08 07:10] LABS: Glucose,Whole Blood 135 mg/dL (75-99)
[2019-08-08] MEDS: IPRATROPIUM-ALBUTEROL 3 ML NEB INHALATION SCH ×4 (08:09→21:27)
[2019-08-08] MEDS: BUDESONIDE 1 MG/2 ML NEBU INHALATION SCH ×2 (08:09→21:27)
[2019-08-08] MEDS: FORMOTEROL FUMARATE 20 MCG/2 ML NEBU INHALATION SCH ×2 (08:09→21:27)
[2019-08-08] MEDS: VANCOMYCIN 1,250 MG in SODIUM CHLORIDE 0.9% 250 ML IVPB SCH ×2 (08:30→19:31)
[2019-08-08] MEDS: THEOPHYLLINE 24 HOUR 300 MG CAP.ER.24H PO SCH (08:31)
[2019-08-08] MEDS: HEPARIN SODIUM,PORCINE 5,000 UNIT/ML 1 ML VIAL SQ SCH ×2 (08:31→20:43)
[2019-08-08] MEDS: clonazePAM 0.5 MG TAB PO PRN ×2 (08:31→19:30)
[2019-08-08] MEDS: amLODIPine 5 MG TAB PO SCH ×2 (08:31→23:33)
[2019-08-08] MEDS: FLUCONAZOLE 100 MG TAB PO SCH (08:31)
[2019-08-08] MEDS: PANTOPRAZOLE 40 MG TABLET PO SCH (08:31)
[2019-08-08] MEDS: MONTELUKAST 10 MG TAB PO SCH (08:32)
[2019-08-08 11:06] LABS: Glucose,Whole Blood 225 mg/dL (75-99)
[2019-08-08 13:03] VITALS: BMI 22.1
[2019-08-08 13:43] LABS: HIV 1 AB Non-Reactive (Non-Reactive); HIV 2 AB Non-Reactive (Non-Reactive); HIV AB P24 Non-Reactive (Non-Reactive); HIV P24 AG Non-Reactive (Non-Reactive)
--- NOTE | 2019-08-08 15:16 | P.PN ---
Subjective Progress Note Date: 08/08/19 Principal diagnosis: Shortness of breath, chills, cough 74-year-old male patient with history of severe COPD, with baseline FEV1 of 0.48 L or 15% of predicted with diffusion abnormality, chronic hypoxemic respiratory failure, hypertension, anxiety, hyperlipidemia, former smoking history. He follows with Dr. Carnes in the pulmonary clinic, patient is on maintenance dose of prednisone 10 mg daily, Spiriva, DuoNeb, Symbicort, theophylline, and Mucinex. Patient presented to the hospital for evaluation of increasing dyspnea, cough, chills, weakness, reduction of greenish colored sputum. Patient was initially evaluated at [facility], and chest x-rays performed showing cavitating lesion in the right upper lobe concerning for fungal versus neoplastic versus TB. Patient was started on Levaquin, patient was transferred to [facility] for further management, and CT chest with contrast was obtained showing a 7.0 x 4.1 cm cavitary structure with fluid level in the left upper lobe extending into the left lung apex that could reflect infected Although cavitary neoplasm with catheter infection not excluded, severe bullous emphysema was noted. she was started on empiric antibiotics,in the form of Zosyn and vancomycin, nebulized bronchodilators and he is being admitted for further management. On 08/02/2019 patient seen in follow-up on selective care unit, still dyspneic with conversation, but no acute distress, he states his breathing is probably about the same, no fever, denies chills, occasional nonproductive cough, unable to bring up any sputum, currently on 2 L of oxygen with a pulse ox of 93%, he denies any chest pain on today's exam, lung sounds reveal diminished breath sounds with crackles over anterior lateral left chest. End expiratory wheezes, patient is on a combination of Zosyn and vancomycin. On oral prednisone 40 mg daily, Symbicort, breathing treatments, it is labs have been reviewed, showing white blood cell count 20.4, hemoglobin of 12.1, serum sodium was 135, the rest of the electrolytes and renal profile were within the normal limits. On 08/04/2019 patient seen in follow-up on selective care unit, still dyspneic, but he states he is slightly improved, remains on 2 L of oxygen and his pulse ox is 92%, he still unable to bring up any sputum, his cough does not sound very congested, he is afebrile, hemodynamically patient is stable, he is very dyspneic with any exertion, but he has been up and walking to the bathroom, requires frequent rest periods, but not far off his baseline. On the regular basis patient activity level is limited, he is able to ambulate about the house, and he breaks up his activities of daily living into manageable tasks. Lung sounds reveal coarse crackles over left upper lung, and expiratory wheezes, and diminished breath sounds bilaterally. Patient remains on a combination of Zosyn and vancomycin. He has been unable to provide a sputum culture. On 08/05/2019 patient seen in follow-up on selective care unit. Awake and alert, he is still very short of breath with any activity, but he was able to get up in the chair, sit up for meals, does require rest periods in between, currently on 2 L of oxygen with a pulse ox of 92%, hemodynamically patient is stable, he Nuys any fever or chills, he started to bring up small amounts of phlegm, sputum sample was sent down for culture and is pending at this time, no new labs, no new chest x-rays, remains on Zosyn and vancomycin for abiotic coverage, remains on IV Solu-Medrol and breathing treatments, slowly improving On 08/06/2019 patient seen in follow-up on medical surgical floor. They have 5 L of oxygen with a pulse ox of 96%, afebrile, hemodynamically stable, patient is very dyspneic with any exertion, requiring frequent periods of rest, overall he states he is improving, no acute events overnight. Sputum culture has shown no growth other than Mireya albicans which could be oral contamination, patient was started on Diflucan, he remains on a combination of Zosyn and vancomycin. No fever or chills, lung sounds reveal diminished breath sounds bilaterally, no rhonchi or wheezing on today's exam. Follow-up chest x-ray was obtained today showing stable left upper lobe cavitating infiltrate. Vital signs have been st able. no complains of chest pain, no hemoptysis, On 08/08/2019 patient is seen in follow-up on medical surgical floor. He sitting up in the recliner, he is dyspneic with any activity, he has to space out any of his activities of daily living so he can recover. But no worsening dyspnea, no fever or chills, current 4 L of oxygen, his pulse ox is 92%, remains on, initially Zosyn and vancomycin, no growth on the sputum culture. No complaints of chest pain no complaints of hemoptysis, sounds are diminished, no wheezing Objective - Vital Signs Vital signs: Vital Signs Temp 97.7 F 08/08/19 07:00 Pulse 113 H 08/08/19 12:36 Resp 15 08/08/19 08:45 BP 150/93 08/08/19 07:00 Pulse Ox 92 L 08/08/19 08:09 Intake & Output 08/07/19 08/08/19 08/08/19 18:59 06:59 18:59 Intake Total 100 Output Total 300 200 Balance 100 -300 -200 Weight 68 kg Intake: Intake, IV Titration 100 Amount Piperacillin-Tazobactam 3 100 .375 gm In Sodium Chloride 0.9% 100 ml @ 25 mls/hr IVPB Q8HR [facility] Rx# :[id number] Output: Urine 300 200 Other: Voiding Method Urinal Urinal Urinal # Voids 1 - Exam GENERAL EXAM: Alert, very dyspneic, 74-year-old white male, on 4 L of oxygen, dyspneic with any conversation HEAD: Normocephalic/atraumatic. EYES: Normal reaction of pupils, equal size. Conjunctiva pink, sclera white. NOSE: Clear with pink turbinates. THROAT: No erythema or exudates. NECK: No masses, no JVD, no thyroid enlargement, no adenopathy. CHEST: No chest wall deformity. Symmetrical expansion. LUNGS: Equal air entry with diminished breath sounds bilaterally, diminished air entry bilaterally, no wheezes CVS: Regular rate and rhythm, normal S1 and S2, no gallops, no murmurs, no rubs ABDOMEN: Soft, nontender. No hepatosplenomegaly, normal bowel sounds, no guarding or rigidity. EXTREMITIES: No clubbing, no edema, no cyanosis, 2+ pulses and upper and lower extremities. MUSCULOSKELETAL: Muscle strength and tone normal. SPINE: No scoliosis or deformity SKIN: No rashes CENTRAL NERVOUS SYSTEM: Alert and oriented -3. No focal deficits, tone is normal in all 4 extremities. PSYCHIATRIC: Alert and oriented -3. Appropriate affect. Intact judgment and insight. - Labs CBC & Chem 7: 08/08/19 05:35 08/08/19 05:35 Labs: Abnormal Lab Results - Last 24 Hours (Table) 08/07/19 08/07/19 08/08/19 Range/Units 16:46 21:45 05:35 WBC (3.8-10.6) k/uL Neutrophils # (1.3-7.7) k/uL Lymphocytes # (1.0-4.8) k/uL Carbon Dioxide 38 H (22-30) mmol/L BUN 22 H (9-20) mg/dL Glucose 140 H (74-99) mg/dL POC Glucose (mg/dL) 159 H 183 H (75-99) mg/dL 08/08/19 08/08/19 08/08/19 Range/Units 05:35 07:09 11:04 WBC 11.0 H (3.8-10.6) k/uL Neutrophils # 10.3 H (1.3-7.7) k/uL Lymphocytes # 0.2 L (1.0-4.8) k/uL Carbon Dioxide (22-30) mmol/L BUN (9-20) mg/dL Glucose (74-99) mg/dL POC Glucose (mg/dL) 135 H 225 H (75-99) mg/dL Assessment and Plan Plan: assessment: #1. acute pneumonia, CT chest showed a 7.0 x 4.1 cm cavitary structure with fluid level in the left upper lobe likely infected bulla or cavitary neoplasm cavitary infection #2. Severe COPD, with the baseline FEV1 of 15% of predicted in 2015 with diffusion abnormality. Severe bullous emphysema noted #3. Chronic hypoxemic respiratory failure #5. Hypertension #6. Hyperlipidemia #7. Previous episodes of pneumonia #8.Former smoker #9. Anxiety #10. Chronic bronchial asthma, unspecified plan: Continue current antibiotic coverage, patient is on a combination of Zosyn and vancomycin, continue IV steroids, continue nebulized bronchodilators, Pulmicort and Perforomist, no growth on the sputum culture, no fever or chills, patient is chronically short of breath with any activity. But overall she states he is feeling somewhat better, his last chest x-ray was yesterday, showing stable in appearance left upper lobe cavitating pneumonia, but overall improved since admission. Continue current medical treatment, patient will need another 48-72 hour inpatient treatment, he is not a candidate for bronchoscopy as the patient would be considered high risk for intraoperative complications, including . Patient does not want any bronchoscopic evaluation anyway. We'll continue medical supportive treatment I performed a history & physical examination of the patient and discussed their management with my nurse practitioner, Chichi Youssef. I reviewed the nurse practitioner's note and agree with the documented findings and plan of care. Lung sounds are positive for diminished breath sounds. The findings and the impression was discussed with the patient. I attest to the documentation by the nurse practitioner. Time with Patient: Less than 30
[2019-08-08 16:42] LABS: Glucose,Whole Blood 134 mg/dL (75-99)
[2019-08-08] MEDS: guaiFENesin 600 MG TABLET.ER PO PRN (19:30)
[2019-08-08 20:15] LABS: Glucose,Whole Blood 203 mg/dL (75-99)
[2019-08-08] MEDS: INSULIN ASPART (NovoLOG) 100 UNIT/ML VIAL SQ SCH (20:34)
[2019-08-08] MEDS: ATORVASTATIN 10 MG TAB PO SCH (20:34)
[2019-08-09] MEDS: methylPREDNISolone SOD SUCCI 40 MG/ML 1 ML VIAL IV SCH ×4 (00:35→23:51)
--- NOTE | 2019-08-09 00:44 | PN ---
PROGRESS NOTE DATE OF SERVICE: 08/08/2019 This 74-year-old gentleman, admitted with COPD, acute exacerbation, as well as possibly cavitating pneumonia also had mireya from the sputum. Patient is on bronchodilators and antibiotics. Dr. Carnes is following the patient closely. The patient is still short of breath, even though slightly improved at this time. No chest pain. No palpitations. The patient is not a candidate for bronchoscopy at this time. PHYSICAL EXAMINATION: Alert and oriented x3. Pulse is 108, blood pressure 134/83, respiration 14, temperature 97.8, pulse ox 92% on 2 L. HEENT: Conjunctivae normal. NECK: No jugular venous distention. CARDIOVASCULAR SYSTEM: S1, S2 muffled. RESPIRATORY SYSTEM: Breath sounds diminished at the bases. Bilateral scattered rhonchi and crackles. Expiratory wheezing. ABDOMEN: Soft, non-tender. LEGS: No edema. No swelling. NERVOUS SYSTEM: No focal deficit. LABS: WBC 11, hemoglobin 13.2. Accu-Cheks noted. ASSESSMENT: 1. Chronic obstructive pulmonary disease, acute exacerbation, with acute on chronic hypercapnic hypoxic respiratory failure. 2. Possible left upper lobe pneumonia, possibly Gram, negative with possible cavitation. 3. Mireya albicans from the sputum. 4. Cavitary lesion in the left upper lobe, possibly infected bullae versus malignancy versus cavitating pneumonia. 5. Leukocytosis. 6. Anemia of chronic disease. 7. Hypokalemia. 8. Increased random blood sugar. 9. Hyponatremia. 10.History of asthma, chronic obstructive pulmonary disease. 11.History of gastroesophageal reflux disease. 12.Hypertension. 13.Hyperlipidemia. 14.History of chronic obstructive pulmonary disease. 15.History of anxiety. 16.Remote history of nicotine dependence. RECOMMENDATIONS AND DISCUSSION: I recommend to continue current medications, continue with the monitoring, symptomatic treatment. Otherwise at this time I recommend continuing with the broad-spectrum IV antibiotics, bronchodilators. Closely follow with Dr. Carnes. Guarded prognosis. Further recommendations to follow. MMODL / IJN: [id number] /
[2019-08-09] MEDS: SODIUM CHLORIDE 0.9% 1,000 ML IV SCH (02:28)
[2019-08-09] MEDS: VANCOMYCIN 1,250 MG in SODIUM CHLORIDE 0.9% 250 ML IVPB SCH ×2 (05:21→16:59)
[2019-08-09] MEDS: INSULIN ASPART (NovoLOG) 100 UNIT/ML VIAL SQ SCH ×4 (06:59→20:52)
[2019-08-09 07:00] LABS: Glucose,Whole Blood 131 mg/dL (75-99)
[2019-08-09] MEDS: amLODIPine 5 MG TAB PO SCH ×2 (07:14→20:55)
[2019-08-09] MEDS: FLUCONAZOLE 100 MG TAB PO SCH (07:14)
[2019-08-09] MEDS: THEOPHYLLINE 24 HOUR 300 MG CAP.ER.24H PO SCH (07:14)
[2019-08-09] MEDS: MONTELUKAST 10 MG TAB PO SCH (07:14)
[2019-08-09] MEDS: PANTOPRAZOLE 40 MG TABLET PO SCH (07:14)
[2019-08-09] MEDS: HEPARIN SODIUM,PORCINE 5,000 UNIT/ML 1 ML VIAL SQ SCH ×2 (07:15→20:51)
[2019-08-09] MEDS: clonazePAM 0.5 MG TAB PO PRN ×2 (07:19→20:58)
[2019-08-09 07:50] LABS: Basophils % (A) 0 %; Eosinophils % (A) 0 %; HCT 43.2 % (39.0-53.0); HGB 13.7 gm/dL (13.0-17.5); Lymphocytes # (A) 0.2 k/uL (1.0-4.8); Lymphocytes % (A) 2 %; MCH 26.9 pg (25.0-35.0); MCHC 31.8 g/dL (31.0-37.0); MCV 84.7 fL (80.0-100.0); Mean Platelet Volume 7.3; Monocytes # (A) 0.3 k/uL (0-1.0); Monocytes % (A) 3 %; Neutrophils # (A) 11.7 k/uL (1.3-7.7); Neutrophils % (A) 95 %; Platelet Count 211 k/uL (150-450); WBC 12.4 k/uL (3.8-10.6)
[2019-08-09] MEDS: BUDESONIDE 1 MG/2 ML NEBU INHALATION SCH ×2 (07:57→21:14)
[2019-08-09] MEDS: FORMOTEROL FUMARATE 20 MCG/2 ML NEBU INHALATION SCH ×2 (07:57→21:14)
[2019-08-09] MEDS: IPRATROPIUM-ALBUTEROL 3 ML NEB INHALATION SCH ×4 (07:57→21:14)
[2019-08-09 07:59] LABS: African American GFR (CKD) >90 (>60 ml/min/1.73 sqM); Anion Gap 2 mmol/L; Blood Urea Nitrogen 22 mg/dL (9-20); Carbon Dioxide 39 mmol/L (22-30); Chloride 96 mmol/L (98-107); Glucose 134 mg/dL (74-99); Non-African American GFR(CKD) >90 (>60 ml/min/1.73 sqM); Potassium 4.3 mmol/L (3.5-5.1); Sodium 137 mmol/L (137-145)
[2019-08-09 11:45] LABS: Glucose,Whole Blood 149 mg/dL (75-99)
--- NOTE | 2019-08-09 14:05 | P.PN ---
Subjective Progress Note Date: 08/09/19 Principal diagnosis: Shortness of breath, chills, cough 74-year-old male patient with history of severe COPD, with baseline FEV1 of 0.48 L or 15% of predicted with diffusion abnormality, chronic hypoxemic respiratory failure, hypertension, anxiety, hyperlipidemia, former smoking history. He follows with Dr. Carnes in the pulmonary clinic, patient is on maintenance dose of prednisone 10 mg daily, Spiriva, DuoNeb, Symbicort, theophylline, and Mucinex. Patient presented to the hospital for evaluation of increasing dyspnea, cough, chills, weakness, reduction of greenish colored sputum. Patient was initially evaluated at [facility], and chest x-rays performed showing cavitating lesion in the right upper lobe concerning for fungal versus neoplastic versus TB. Patient was started on Levaquin, patient was transferred to [facility] for further management, and CT chest with contrast was obtained showing a 7.0 x 4.1 cm cavitary structure with fluid level in the left upper lobe extending into the left lung apex that could reflect infected Although cavitary neoplasm with catheter infection not excluded, severe bullous emphysema was noted. she was started on empiric antibiotics,in the form of Zosyn and vancomycin, nebulized bronchodilators and he is being admitted for further management. On 08/02/2019 patient seen in follow-up on selective care unit, still dyspneic with conversation, but no acute distress, he states his breathing is probably about the same, no fever, denies chills, occasional nonproductive cough, unable to bring up any sputum, currently on 2 L of oxygen with a pulse ox of 93%, he denies any chest pain on today's exam, lung sounds reveal diminished breath sounds with crackles over anterior lateral left chest. End expiratory wheezes, patient is on a combination of Zosyn and vancomycin. On oral prednisone 40 mg daily, Symbicort, breathing treatments, it is labs have been reviewed, showing white blood cell count 20.4, hemoglobin of 12.1, serum sodium was 135, the rest of the electrolytes and renal profile were within the normal limits. On 08/04/2019 patient seen in follow-up on selective care unit, still dyspneic, but he states he is slightly improved, remains on 2 L of oxygen and his pulse ox is 92%, he still unable to bring up any sputum, his cough does not sound very congested, he is afebrile, hemodynamically patient is stable, he is very dyspneic with any exertion, but he has been up and walking to the bathroom, requires frequent rest periods, but not far off his baseline. On the regular basis patient activity level is limited, he is able to ambulate about the house, and he breaks up his activities of daily living into manageable tasks. Lung sounds reveal coarse crackles over left upper lung, and expiratory wheezes, and diminished breath sounds bilaterally. Patient remains on a combination of Zosyn and vancomycin. He has been unable to provide a sputum culture. On 08/05/2019 patient seen in follow-up on selective care unit. Awake and alert, he is still very short of breath with any activity, but he was able to get up in the chair, sit up for meals, does require rest periods in between, currently on 2 L of oxygen with a pulse ox of 92%, hemodynamically patient is stable, he Nuys any fever or chills, he started to bring up small amounts of phlegm, sputum sample was sent down for culture and is pending at this time, no new labs, no new chest x-rays, remains on Zosyn and vancomycin for abiotic coverage, remains on IV Solu-Medrol and breathing treatments, slowly improving On 08/06/2019 patient seen in follow-up on medical surgical floor. They have 5 L of oxygen with a pulse ox of 96%, afebrile, hemodynamically stable, patient is very dyspneic with any exertion, requiring frequent periods of rest, overall he states he is improving, no acute events overnight. Sputum culture has shown no growth other than Mireya albicans which could be oral contamination, patient was started on Diflucan, he remains on a combination of Zosyn and vancomycin. No fever or chills, lung sounds reveal diminished breath sounds bilaterally, no rhonchi or wheezing on today's exam. Follow-up chest x-ray was obtained today showing stable left upper lobe cavitating infiltrate. Vital signs have been st able. no complains of chest pain, no hemoptysis, On 08/08/2019 patient is seen in follow-up on medical surgical floor. He sitting up in the recliner, he is dyspneic with any activity, he has to space out any of his activities of daily living so he can recover. But no worsening dyspnea, no fever or chills, current 4 L of oxygen, his pulse ox is 92%, remains on, initially Zosyn and vancomycin, no growth on the sputum culture. No complaints of chest pain no complaints of hemoptysis, sounds are diminished, no wheezing On 08/09/2019 patient is seen in follow-up on medical surgical floor. He is ambulating to the bathroom, does become very short of breath with any exertion, dyspnea, vital signs are stable, he remains on 5 L of oxygen, pulse ox of 98%, afebrile, hemodynamically stable, sputum culture has shown no growth, he remains on a combination of Zosyn and vancomycin. Slowly improving, no hemoptysis, no chest pain, lung sounds are diminished, no wheezing Objective - Vital Signs Vital signs: Vital Signs Temp 97.7 F 08/09/19 13:32 Pulse 117 H 08/09/19 13:32 Resp 18 08/09/19 13:32 BP 136/73 08/09/19 13:32 Pulse Ox 98 08/09/19 13:32 Intake & Output 08/08/19 08/09/19 08/09/19 18:59 06:59 18:59 Output Total 350 1750 200 Balance -350 -1750 -200 Weight 68 kg Output: Urine 350 1750 200 Other: Voiding Method Urinal Urinal # Voids 1 1 # Bowel Movements 1 - Exam GENERAL EXAM: Alert, very dyspneic, 74-year-old white male, on 5 L of oxygen, dyspneic with any conversation and with any exertion HEAD: Normocephalic/atraumatic. EYES: Normal reaction of pupils, equal size. Conjunctiva pink, sclera white. NOSE: Clear with pink turbinates. THROAT: No erythema or exudates. NECK: No masses, no JVD, no thyroid enlargement, no adenopathy. CHEST: No chest wall deformity. Symmetrical expansion. LUNGS: Equal air entry with diminished breath sounds bilaterally, diminished air entry bilaterally, no wheezes CVS: Regular rate and rhythm, normal S1 and S2, no gallops, no murmurs, no rubs ABDOMEN: Soft, nontender. No hepatosplenomegaly, normal bowel sounds, no guarding or rigidity. EXTREMITIES: No clubbing, no edema, no cyanosis, 2+ pulses and upper and lower extremities. MUSCULOSKELETAL: Muscle strength and tone normal. SPINE: No scoliosis or deformity SKIN: No rashes CENTRAL NERVOUS SYSTEM: Alert and oriented -3. No focal deficits, tone is normal in all 4 extremities. PSYCHIATRIC: Alert and oriented -3. Appropriate affect. Intact judgment and insight. - Labs CBC & Chem 7: 08/09/19 07:29 08/09/19 07:29 Labs: Abnormal Lab Results - Last 24 Hours (Table) 08/08/19 08/08/19 08/09/19 Range/Units 16:41 20:13 06:59 WBC (3.8-10.6) k/uL Neutrophils # (1.3-7.7) k/uL Lymphocytes # (1.0-4.8) k/uL Chloride (98-107) mmol/L Carbon Dioxide (22-30) mmol/L BUN (9-20) mg/dL Glucose (74-99) mg/dL POC Glucose (mg/dL) 134 H 203 H 131 H (75-99) mg/dL 08/09/19 08/09/19 08/09/19 Range/Units 07:29 07:29 11:37 WBC 12.4 H (3.8-10.6) k/uL Neutrophils # 11.7 H (1.3-7.7) k/uL Lymphocytes # 0.2 L (1.0-4.8) k/uL Chloride 96 L (98-107) mmol/L Carbon Dioxide 39 H (22-30) mmol/L BUN 22 H (9-20) mg/dL Glucose 134 H (74-99) mg/dL POC Glucose (mg/dL) 149 H (75-99) mg/dL Assessment and Plan Plan: assessment: #1. acute pneumonia, CT chest showed a 7.0 x 4.1 cm cavitary structure with fluid level in the left upper lobe likely infected bulla or cavitary neoplasm cavitary infection #2. Severe COPD, with the baseline FEV1 of 15% of predicted in 2015 with diffusion abnormality. Severe bullous emphysema noted #3. Chronic hypoxemic respiratory failure #5. Hypertension #6. Hyperlipidemia #7. Previous episodes of pneumonia #8.Former smoker #9. Anxiety #10. Chronic bronchial asthma, unspecified plan: Follow-up chest x-ray tomorrow morning, continue combination of Zosyn and vancomycin, continue IV steroids, nebulized bronchodilators, anticipate possible discharge on Thursday or Thursday, if remains stable and continues to improve. I performed a history & physical examination of the patient and discussed their management with my nurse practitioner, Chichi Youssef. I reviewed the nurse practitioner's note and agree with the documented findings and plan of care. Lung sounds are positive for diminished breath sounds. The findings and the impression was discussed with the patient. I attest to the documentation by the nurse practitioner. Time with Patient: Less than 30
[2019-08-09] MEDS: IPRATROPIUM-ALBUTEROL 3 ML NEB INHALATION PRN (16:28)
[2019-08-09 16:36] LABS: Glucose,Whole Blood 169 mg/dL (75-99)
--- NOTE | 2019-08-09 16:58 | XR ---
EXAMINATION TYPE: XR chest 2V DATE OF EXAM: 08/09/2019 COMPARISON: 08/07/2019 HISTORY: Pneumonia TECHNIQUE: FINDINGS: There is extensive coarse infiltrate in the left upper lobe. There is pulmonary hyperinflat ion and flattening of the diaphragm. Heart size is normal. There is no heart failure. There is no ple ural effusion. There is pulmonary emphysema. IMPRESSION: Chronic extensive infiltrate left upper lobe appears not significantly different than pre vious exams back to 08/01/2019. Emphysema and pulmonary fibrosis.
[2019-08-09] MEDS: PIPERACILLIN-TAZOBACTAM 3.375 GM in SODIUM CHLORIDE 0.9% 100 ML IVPB SCH ×2 (17:00→23:54)
[2019-08-09] MEDS: ATORVASTATIN 10 MG TAB PO SCH (20:53)
--- NOTE | 2019-08-09 21:06 | PN ---
PROGRESS NOTE DATE OF SERVICE: 08/09/2019 This 74-year-old gentleman who was admitted with cavitating pneumonia and COPD exacerbation is being closely monitored. Dr. Carnes is following the patient closely. The patient is improving, but the most recent chest x-ray, which was reviewed personally by me, showed persistent lesions with some minimal improvement. No chest pain. No palpitations. No fever. PHYSICAL EXAMINATION: Alert and oriented x3. Pulse is 114, blood pressure 130/73, respiration 18, temperature 97.7, pulse ox 98% on 5 L. HEENT: Conjunctivae normal. NECK: No jugular venous distention. CARDIOVASCULAR SYSTEM: S1, S2 muffled. RESPIRATORY SYSTEM: Breath sounds diminished at the bases. A few scattered rhonchi and crackles. ABDOMEN: Soft, non-tender. LEGS: No edema. No swelling. NERVOUS SYSTEM: No focal deficit. LABS: WBC 12.4. Sodium 137, potassium 4.3. ASSESSMENT: 1. Chronic obstructive pulmonary disease, acute exacerbation, with acute on chronic hypercapnic hypoxic respiratory failure. 2. Possible left upper lobe pneumonia, possibly Gram-negative, with possible cavitation. 3. Mireya albicans from the sputum. 4. Cavitary lesion in the left upper lobe, possibly infected bullae versus malignancy versus cavitating pneumonia. 5. Leukocytosis. 6. Anemia of chronic disease. 7. Hypokalemia. 8. Increased random blood sugar. 9. Hyponatremia. 10.History of asthma, chronic obstructive pulmonary disease. 11.History of gastroesophageal reflux disease. 12.Hypertension. 13.Hyperlipidemia. 14.History of chronic obstructive pulmonary disease. 15.History of anxiety. 16.Remote history of nicotine dependence. RECOMMENDATIONS AND DISCUSSION: At this time I recommend to continue current medications, continue with the monitoring, symptomatic treatment. Continue with the broad-spectrum IV antibiotics. Closely follow with Dr. Carnes. Bronchodilators. Otherwise, antifungals. The patient is on Zosyn and vancomycin. Cultures are only showing mireya. Further recommendations to follow. MMODL / IJN: [id number] /
[2019-08-09 21:09] LABS: Glucose,Whole Blood 107 mg/dL (75-99)
[2019-08-10] MEDS: VANCOMYCIN 1,250 MG in SODIUM CHLORIDE 0.9% 250 ML IVPB SCH ×2 (05:32→17:47)
[2019-08-10] MEDS: IPRATROPIUM-ALBUTEROL 3 ML NEB INHALATION PRN (05:36)
[2019-08-10] MEDS: clonazePAM 0.5 MG TAB PO PRN ×2 (05:54→21:26)
--- NOTE | 2019-08-10 06:52 | XR ---
EXAMINATION TYPE: XR chest 1V portable DATE OF EXAM: 08/10/2019 COMPARISON: Yesterday HISTORY: Short of breath TECHNIQUE: Single view FINDINGS: There is patchy airspace consolidation in the lateral left upper lobe. There is pulmonary e mphysema. There is heart size is normal. There are no hilar masses. There is no pleural effusion. IMPRESSION: Emphysema. Extensive infiltrate left upper lobe unchanged compared to yesterday. No pneum othorax.
[2019-08-10] MEDS: FORMOTEROL FUMARATE 20 MCG/2 ML NEBU INHALATION SCH ×2 (07:08→19:46)
[2019-08-10] MEDS: BUDESONIDE 1 MG/2 ML NEBU INHALATION SCH ×2 (07:08→19:46)
[2019-08-10] MEDS: IPRATROPIUM-ALBUTEROL 3 ML NEB INHALATION SCH ×4 (07:08→19:46)
[2019-08-10 07:24] LABS: Basophils % (A) 0 %; Eosinophils % (A) 0 %; HGB 14.2 gm/dL (13.0-17.5); Hypochromasia Slight; Lymphocytes # (A) 0.2 k/uL (1.0-4.8); Lymphocytes % (A) 1 %; MCH 27.4 pg (25.0-35.0); MCHC 32.2 g/dL (31.0-37.0); MCV 85.1 fL (80.0-100.0); Mean Platelet Volume 7.6; Monocytes # (A) 0.4 k/uL (0-1.0); Monocytes % (A) 2 %; Neutrophils # (A) 16.1 k/uL (1.3-7.7); Neutrophils % (A) 96 %; Platelet Count 294 k/uL (150-450); RBC 5.17 m/uL (4.30-5.90); RDW 14.5 % (11.5-15.5); WBC 16.8 k/uL (3.8-10.6)
[2019-08-10 07:31] LABS: African American GFR (CKD) >90 (>60 ml/min/1.73 sqM); Anion Gap 4 mmol/L; Blood Urea Nitrogen 25 mg/dL (9-20); Calcium 9.6 mg/dL (8.4-10.2); Carbon Dioxide 36 mmol/L (22-30); Chloride 97 mmol/L (98-107); Glucose 163 mg/dL (74-99); Non-African American GFR(CKD) >90 (>60 ml/min/1.73 sqM); Potassium 4.4 mmol/L (3.5-5.1); Sodium 137 mmol/L (137-145)
[2019-08-10] MEDS: INSULIN ASPART (NovoLOG) 100 UNIT/ML VIAL SQ SCH ×4 (07:59→20:51)
[2019-08-10 08:09] LABS: Glucose,Whole Blood 160 mg/dL (75-99)
[2019-08-10] MEDS: HEPARIN SODIUM,PORCINE 5,000 UNIT/ML 1 ML VIAL SQ SCH ×2 (08:21→20:51)
[2019-08-10] MEDS: PANTOPRAZOLE 40 MG TABLET PO SCH (08:21)
[2019-08-10] MEDS: PIPERACILLIN-TAZOBACTAM 3.375 GM in SODIUM CHLORIDE 0.9% 100 ML IVPB SCH ×2 (08:21→16:15)
[2019-08-10] MEDS: FLUCONAZOLE 100 MG TAB PO SCH (08:21)
[2019-08-10] MEDS: THEOPHYLLINE 24 HOUR 300 MG CAP.ER.24H PO SCH (08:21)
[2019-08-10] MEDS: amLODIPine 5 MG TAB PO SCH ×2 (08:21→20:51)
[2019-08-10] MEDS: methylPREDNISolone SOD SUCCI 40 MG/ML 1 ML VIAL IV SCH ×2 (08:21→16:15)
[2019-08-10] MEDS: MONTELUKAST 10 MG TAB PO SCH (08:21)
[2019-08-10 11:53] LABS: Glucose,Whole Blood 163 mg/dL (75-99)
--- NOTE | 2019-08-10 16:20 | P.PN ---
Subjective Progress Note Date: 08/10/19 Principal diagnosis: Acute pneumonia, CT chest showed a 7.0 x 4.1 cm cavitary structure with fluid level in the left upper lobe likely infected bulla or cavitary neoplasm cavitary infection 74-year-old male patient with history of severe COPD, with baseline FEV1 of 0.48 L or 15% of predicted with diffusion abnormality, chronic hypoxemic respiratory failure, hypertension, anxiety, hyperlipidemia, former smoking history. He follows with Dr. Carnes in the pulmonary clinic, patient is on maintenance dose of prednisone 10 mg daily, Spiriva, DuoNeb, Symbicort, theophylline, and Mucinex. Patient presented to the hospital for evaluation of increasing dyspnea, cough, chills, weakness, reduction of greenish colored sputum. Patient was initially evaluated at [facility], and chest x-rays performed showing cavitating lesion in the right upper lobe concerning for fungal versus neoplastic versus TB. Patient was started on Levaquin, patient was transferred to [facility] for further management, and CT chest with contrast was obtained showing a 7.0 x 4.1 cm cavitary structure with fluid level in the left upper lobe extending into the left lung apex that could reflect infected although cavitary neoplasm with catheter infection not excluded, severe bullous emphysema was noted. she was started on empiric antibiotics,in the form of Zosyn and vancomycin, nebulized bronchodilators and he is being admitted for further management. The patient is seen today 08/10/2019 and follow-up on the regular medical floor. Presently, he is awake and alert in no acute distress. He was quite dyspneic earlier this morning and was placed on the area high flow oxygen device as he is intolerant to the BiPAP facemask. Current settings are 55 L at 50% FiO2. Maintaining O2 saturation the high 90s. White count 16.8. Hemoglobin 14.2. Creatinine 0.76. He is continued on DuoNeb inhalations, Pulmicort and Perforomist inhalations, Singulair, theophylline, Mucinex, IV Solu-Medrol, vancomycin and Zosyn. Objective - Vital Signs Vital signs: Vital Signs Temp 97.7 F 08/10/19 15:00 Pulse 102 H 08/10/19 16:07 Resp 14 08/10/19 15:00 BP 128/78 08/10/19 15:00 Pulse Ox 99 08/10/19 16:01 Intake & Output 08/09/19 08/10/19 08/10/19 18:59 06:59 18:59 Intake Total 350 Output Total 200 650 Balance -200 -650 350 Intake: Intake, IV Titration 350 Amount Piperacillin-Tazobactam 3 100 .375 gm In Sodium Chloride 0.9% 100 ml @ 25 mls/hr IVPB Q8HR [facility] Rx# :[id number] Vancomycin 1,250 mg In 250 Sodium Chloride 0.9% 250 ml @ 125 mls/hr IVPB Q12H [facility] Rx#:[id number] Output: Urine 200 650 Other: Voiding Method Urinal Urinal # Bowel Movements 1 1 - Exam GENERAL EXAM: Alert, pleasant 74-year-old male patient, on AirVo high flow oxygen at 55 L and 50% FiO2, still dyspneic with conversation and activity HEAD: Normocephalic/atraumatic. EYES: Normal reaction of pupils, equal size. Conjunctiva pink, sclera white. NOSE: Clear with pink turbinates. THROAT: No erythema or exudates. NECK: No masses, no JVD, no thyroid enlargement, no adenopathy. CHEST: No chest wall deformity. Symmetrical expansion. LUNGS: Equal air entry with diminished breath sounds bilaterally, crackles over left upper lateral chest anteriorly, end expiratory wheezes CVS: Regular rate and rhythm, normal S1 and S2, no gallops, no murmurs, no rubs ABDOMEN: Soft, nontender. No hepatosplenomegaly, normal bowel sounds, no guarding or rigidity. EXTREMITIES: No clubbing, no edema, no cyanosis, 2+ pulses and upper and lower extremities. MUSCULOSKELETAL: Muscle strength and tone normal. SPINE: No scoliosis or deformity SKIN: No rashes CENTRAL NERVOUS SYSTEM: No focal deficits, tone is normal in all 4 extremities. PSYCHIATRIC: Alert and oriented -3. Appropriate affect. Intact judgment and insight. - Labs CBC & Chem 7: 08/10/19 06:30 08/10/19 06:30 Labs: Abnormal Lab Results - Last 24 Hours (Table) 08/09/19 08/09/19 08/10/19 Range/Units 16:33 20:50 06:30 WBC 16.8 H (3.8-10.6) k/uL Neutrophils # 16.1 H (1.3-7.7) k/uL Lymphocytes # 0.2 L (1.0-4.8) k/uL Chloride (98-107) mmol/L Carbon Dioxide (22-30) mmol/L BUN (9-20) mg/dL Glucose (74-99) mg/dL POC Glucose (mg/dL) 169 H 107 H (75-99) mg/dL 08/10/19 08/10/19 08/10/19 Range/Units 06:30 07:56 11:48 WBC (3.8-10.6) k/uL Neutrophils # (1.3-7.7) k/uL Lymphocytes # (1.0-4.8) k/uL Chloride 97 L (98-107) mmol/L Carbon Dioxide 36 H (22-30) mmol/L BUN 25 H (9-20) mg/dL Glucose 163 H (74-99) mg/dL POC Glucose (mg/dL) 160 H 163 H (75-99) mg/dL Assessment and Plan Assessment: 1 Acute pneumonia, CT chest showed a 7.0 x 4.1 cm cavitary structure with fluid level in the left upper lobe likely infected bulla or cavitary neoplasm cavitary infection, slight improvement on recent chest x-ray 2 Severe COPD, with the baseline FEV1 of 15% of predicted in 2015 with diffusion abnormality. Severe bullous emphysema noted. Currently on the AirVo high flow oxygen device at 55 L and 50% FiO2 3 Chronic hypoxemic respiratory failure 4 Hypertension 5 Hyperlipidemia 6 Previous episodes of pneumonia 7 Former smoker 8 Anxiety 9 Chronic bronchial asthma, unspecified Plan: The patient was seen and evaluated by Dr. Carnes Initiated on AirVo high flow oxygen at 55L and 50% FiO2 Titrate down the FiO2 as tolerated Continue vancomycin and Zosyn Continue bronchodilators and IV steroids Avoid bronchoscopy if possible due to the patient's severe bullous emphysema and poor lung function His overall prognosis is quite poor. May need to consider hospice/palliative care. Continue to follow and make further recommendations based on his clinical status I, the cosigning physician, performed a history & physical examination of the patient. Lungs sounds bilateral end expiratory wheeze be scattered rhonchi more so on the left anterior chest. Maintaining good O2 saturations in the 90s on 5 L/m per nasal cannula. I discussed the assessment and plan of care with my nurse practitioner, Tamica Conrad. I attest to the above note as dictated by her.
[2019-08-10 16:55] LABS: Glucose,Whole Blood 161 mg/dL (75-99)
[2019-08-10 19:58] LABS: Glucose,Whole Blood 149 mg/dL (75-99)
[2019-08-10] MEDS: ATORVASTATIN 10 MG TAB PO SCH (20:51)
[2019-08-10] MEDS: guaiFENesin 600 MG TABLET.ER PO PRN (21:26)
[2019-08-11] MEDS: methylPREDNISolone SOD SUCCI 40 MG/ML 1 ML VIAL IV SCH ×2 (00:01→07:27)
--- NOTE | 2019-08-11 01:25 | PN ---
PROGRESS NOTE DATE OF SERVICE: 08/10/2019 This 74 -year-old gentleman admitted with COPD acute exacerbation as well as possible cavitary pneumonia, has taken a turn for the worse this morning. The patient had significant worsening respiratory status, A-Team had to be called. The patient was treated with multiple modalities including Ventimask and currently patient is on high- flow oxygen at this time. The chest x-ray showed extensive infiltrate the left upper lobe. Patient closely monitored. Dr. Carnes is following the patient closely. PAST MEDICAL HISTORY: Reviewed. REVIEW OF SYSTEMS: Cardiovascular as mentioned earlier. Respirations: As mentioned earlier. GI as mentioned earlier. : No dysuria or retention. CENTRAL NERVOUS SYSTEM: No focal deficits. CURRENT MEDICATIONS: Reviewed and include: 1. Tylenol 650 q.6h p.r.n. 2. DuoNeb q.i.d. and p.r.n. 3. Norvasc 5 mg p.o. b.i.d. 4. Lipitor 10 mg q.h.s. 5. Pulmicort 1 mg b.i.d. 6. Klonopin 0.5 mg b.i.d. 8. Diflucan 100 mg p.o. daily. 9. Perforomist 20 mcg b.i.d. 10.Mucinex. 11.Heparin 5000 subcu b.i.d. 12.NovoLog. 13.Solu-Medrol 40 IV q.8h. 14.Vancomycin. 15.Singulair 10 mg. 16.Narcan 0.2 q.2 p.r.n. 17.Zofran. 18.Protonix 40 mg daily. 19.Zosyn 3.375 IV q.8. 20.Jweel-24 600 mg p.o. daily. 21.Vancomycin 1.25 mg IV b.i.d. PHYSICAL EXAMINATION: Patient is alert, oriented x3. Pulse is 102. Blood pressure is 128/78, respiration 14, temperature 97.7, pulse ox 98% on 50% FiO2. HEENT: Conjunctivae normal. Oral mucosa moist. NECK is no jugular venous distention. No carotid bruit. No lymph node enlargement Cardiovascular system: S1, S2 muffled. No S3, no S4. RESPIRATORY: Breath sounds diminished in the bases. Bilateral scattered rhonchi and crackles. Coarse crackles present. ABDOMEN: Soft, nontender. LEGS are no edema. No swelling. CENTRAL NERVOUS SYSTEM: No focal deficits. LAB STUDIES: WBC 16.2, hemoglobin 14.2 sodium 137, potassium 4.5, Accu-Cheks 160 and 161. ASSESSMENT: 1. Chronic obstructive pulmonary disease exacerbation with acute on chronic hypercapnic hypoxic respiratory failure, recurrent. 2. Possible left upper lobe pneumonia possibly gram-negative with possible cavitation. 3. Mireya albicans from the sputum. 4. Cavitary lesion in the left upper lobe, possibly infected bulla versus malignancy versus cavitating pneumonia. 5. Leukocytosis. 6. Anemia of chronic disease. 7. Hypokalemia. 8. Increased random blood sugar. 9. Hyponatremia. 10.History of asthma, chronic obstructive pulmonary disease. 11.Hypertension. 12.Hyperlipidemia. 13.Chronic obstructive pulmonary disease. 14.History of anxiety. 15.Remote history of nicotine dependence. RECOMMENDATIONS AND DISCUSSION: In this 74-year-old gentleman who presented with multiple complex medical issues, we will monitor the patient closely, continue the current medications, management and symptomatic treatment. Otherwise, at this time I recommend continue with bronchodilators, IV steroids. The patient has taken a turn for the worse as mentioned earlier, but however, at this time we will continue with bronchodilators and IV steroids. Guarded prognosis because of multiple complex medical issues. Further recommendations to follow. Continue the antifungal agents. MMODL / IJN: [id number] / MTDD
[2019-08-11] MEDS ORDERED: VANCOMYCIN TROUGH DUE 1 EACH MISC MISCELLANE ONE (05:00)
[2019-08-11] MEDS: VANCOMYCIN 1,250 MG in SODIUM CHLORIDE 0.9% 250 ML IVPB SCH ×2 (06:29→17:12)
[2019-08-11 06:47] LABS: Glucose,Whole Blood 136 mg/dL (75-99)
[2019-08-11] MEDS: PANTOPRAZOLE 40 MG TABLET PO SCH (07:28)
[2019-08-11] MEDS: HEPARIN SODIUM,PORCINE 5,000 UNIT/ML 1 ML VIAL SQ SCH (07:28)
[2019-08-11] MEDS: FLUCONAZOLE 100 MG TAB PO SCH (07:28)
[2019-08-11] MEDS: MONTELUKAST 10 MG TAB PO SCH (07:28)
[2019-08-11] MEDS: THEOPHYLLINE 24 HOUR 300 MG CAP.ER.24H PO SCH (07:28)
[2019-08-11] MEDS: clonazePAM 0.5 MG TAB PO PRN (07:28)
[2019-08-11] MEDS: amLODIPine 5 MG TAB PO SCH (07:28)
[2019-08-11] MEDS: PIPERACILLIN-TAZOBACTAM 3.375 GM in SODIUM CHLORIDE 0.9% 100 ML IVPB SCH ×4 (07:28→15:32)
[2019-08-11] MEDS: guaiFENesin SYRUP 100MG/5ML 200 MG/10 ML CUP PO PRN (07:38)
[2019-08-11] MEDS: BUDESONIDE 1 MG/2 ML NEBU INHALATION SCH ×2 (08:56→20:18)
[2019-08-11] MEDS: FORMOTEROL FUMARATE 20 MCG/2 ML NEBU INHALATION SCH ×2 (08:56→20:31)
[2019-08-11] MEDS: IPRATROPIUM-ALBUTEROL 3 ML NEB INHALATION SCH ×4 (08:56→20:18)
[2019-08-11] MEDS: INSULIN ASPART (NovoLOG) 100 UNIT/ML VIAL SQ SCH ×3 (09:23→17:09)
[2019-08-11 11:23] LABS: Glucose,Whole Blood 155 mg/dL (75-99)
[2019-08-11] MEDS ORDERED: FUROSEMIDE 10 MG/ML 2 ML VIAL IV ONE (13:39)
--- NOTE | 2019-08-11 15:30 | P.PN ---
Subjective Progress Note Date: 08/11/19 Principal diagnosis: Shortness of breath, chills, cough 74-year-old male patient with history of severe COPD, with baseline FEV1 of 0.48 L or 15% of predicted with diffusion abnormality, chronic hypoxemic respiratory failure, hypertension, anxiety, hyperlipidemia, former smoking history. He follows with Dr. Carnes in the pulmonary clinic, patient is on maintenance dose of prednisone 10 mg daily, Spiriva, DuoNeb, Symbicort, theophylline, and Mucinex. Patient presented to the hospital for evaluation of increasing dyspnea, cough, chills, weakness, reduction of greenish colored sputum. Patient was initially evaluated at [facility], and chest x-rays performed showing cavitating lesion in the right upper lobe concerning for fungal versus neoplastic versus TB. Patient was started on Levaquin, patient was transferred to [facility] for further management, and CT chest with contrast was obtained showing a 7.0 x 4.1 cm cavitary structure with fluid level in the left upper lobe extending into the left lung apex that could reflect infected Although cavitary neoplasm with catheter infection not excluded, severe bullous emphysema was noted. she was started on empiric antibiotics,in the form of Zosyn and vancomycin, nebulized bronchodilators and he is being admitted for further management. On 08/02/2019 patient seen in follow-up on selective care unit, still dyspneic with conversation, but no acute distress, he states his breathing is probably about the same, no fever, denies chills, occasional nonproductive cough, unable to bring up any sputum, currently on 2 L of oxygen with a pulse ox of 93%, he denies any chest pain on today's exam, lung sounds reveal diminished breath sounds with crackles over anterior lateral left chest. End expiratory wheezes, patient is on a combination of Zosyn and vancomycin. On oral prednisone 40 mg daily, Symbicort, breathing treatments, it is labs have been reviewed, showing white blood cell count 20.4, hemoglobin of 12.1, serum sodium was 135, the rest of the electrolytes and renal profile were within the normal limits. On 08/04/2019 patient seen in follow-up on selective care unit, still dyspneic, but he states he is slightly improved, remains on 2 L of oxygen and his pulse ox is 92%, he still unable to bring up any sputum, his cough does not sound very congested, he is afebrile, hemodynamically patient is stable, he is very dyspneic with any exertion, but he has been up and walking to the bathroom, requires frequent rest periods, but not far off his baseline. On the regular basis patient activity level is limited, he is able to ambulate about the house, and he breaks up his activities of daily living into manageable tasks. Lung sounds reveal coarse crackles over left upper lung, and expiratory wheezes, and diminished breath sounds bilaterally. Patient remains on a combination of Zosyn and vancomycin. He has been unable to provide a sputum culture. On 08/05/2019 patient seen in follow-up on selective care unit. Awake and alert, he is still very short of breath with any activity, but he was able to get up in the chair, sit up for meals, does require rest periods in between, currently on 2 L of oxygen with a pulse ox of 92%, hemodynamically patient is stable, he [place] any fever or chills, he started to bring up small amounts of phlegm, sputum sample was sent down for culture and is pending at this time, no new labs, no new chest x-rays, remains on Zosyn and vancomycin for abiotic coverage, remains on IV Solu-Medrol and breathing treatments, slowly improving On 08/06/2019 patient seen in follow-up on medical surgical floor. They have 5 L of oxygen with a pulse ox of 96%, afebrile, hemodynamically stable, patient is very dyspneic with any exertion, requiring frequent periods of rest, overall he states he is improving, no acute events overnight. Sputum culture has shown no growth other than Mireya albicans which could be oral contamination, patient was started on Diflucan, he remains on a combination of Zosyn and vancomycin. No fever or chills, lung sounds reveal diminished breath sounds bilaterally, no rhonchi or wheezing on today's exam. Follow-up chest x-ray was obtained today showing stable left upper lobe cavitating infiltrate. Vital signs have been st able. no complains of chest pain, no hemoptysis, On 08/08/2019 patient is seen in follow-up on medical surgical floor. He sitting up in the recliner, he is dyspneic with any activity, he has to space out any of his activities of daily living so he can recover. But no worsening dyspnea, no fever or chills, current 4 L of oxygen, his pulse ox is 92%, remains on, initially Zosyn and vancomycin, no growth on the sputum culture. No complaints of chest pain no complaints of hemoptysis, sounds are diminished, no wheezing On 08/09/2019 patient is seen in follow-up on medical surgical floor. He is ambulating to the bathroom, does become very short of breath with any exertion, dyspnea, vital signs are stable, he remains on 5 L of oxygen, pulse ox of 98%, afebrile, hemodynamically stable, sputum culture has shown no growth, he remains on a combination of Zosyn and vancomycin. Slowly improving, no hemoptysis, no chest pain, lung sounds are diminished, no wheezing On 08/11/2018 patient seen in follow-up on medical surgical floor. Yesterday 18 was called in regards to acute respiratory distress and episode of desaturation, for which the patient required placedment on Airvo, he could not tolerate the BiPAP facemask. Today he remains on Airvo at 50 l/min, and fio2 45 %, patient is dyspneic with any exertion and at rest. States he is feeling slightly better today. He continues on DuoNeb inhalation treatments, Pulmicort, Perforomist, Singulair, theophylline, IV steroids, Zosyn and vancomycin. Yesterday chest x- ray showed emphysema, and extensive infiltration in the left upper lobe unchanged from the prior exam on 08/09/2019. Afebrile. Sputum culture was negative. Objective - Vital Signs Vital signs: Vital Signs Temp 98.2 F 08/11/19 14:08 Pulse 117 H 08/11/19 14:08 Resp 16 08/11/19 14:08 BP 116/73 08/11/19 14:08 Pulse Ox 88 L 08/11/19 14:08 Intake & Output 08/10/19 08/11/19 08/11/19 18:59 06:59 18:59 Intake Total 350 Output Total 325 200 Balance 350 -325 -200 Weight 68 kg Intake: Intake, IV Titration 350 Amount Piperacillin-Tazobactam 3 100 .375 gm In Sodium Chloride 0.9% 100 ml @ 25 mls/hr IVPB Q8HR [facility] Rx# :[id number] Vancomycin 1,250 mg In 250 Sodium Chloride 0.9% 250 ml @ 125 mls/hr IVPB Q12H [facility] Rx#:[id number] Output: Urine 325 200 Other: Voiding Method Urinal Urinal Urinal # Bowel Movements 1 - Exam GENERAL EXAM: Alert, very dyspneic, 74-year-old white male, on Airvo at 50 l/min, or 45% Fio2 dyspneic with any conversation and with any exertion HEAD: Normocephalic/atraumatic. EYES: Normal reaction of pupils, equal size. Conjunctiva pink, sclera white. NOSE: Clear with pink turbinates. THROAT: No erythema or exudates. NECK: No masses, no JVD, no thyroid enlargement, no adenopathy. CHEST: No chest wall deformity. Symmetrical expansion. LUNGS: Equal air entry with diminished breath sounds bilaterally, diminished air entry bilaterally, no wheezes CVS: Regular rate and rhythm, normal S1 and S2, no gallops, no murmurs, no rubs ABDOMEN: Soft, nontender. No hepatosplenomegaly, normal bowel sounds, no guarding or rigidity. EXTREMITIES: No clubbing, no edema, no cyanosis, 2+ pulses and upper and lower extremities. MUSCULOSKELETAL: Muscle strength and tone normal. SPINE: No scoliosis or deformity SKIN: No rashes CENTRAL NERVOUS SYSTEM: Alert and oriented -3. No focal deficits, tone is nor mal in all 4 extremities. PSYCHIATRIC: Alert and oriented -3. Appropriate affect. Intact judgment and insight. - Labs CBC & Chem 7: 08/10/19 06:30 08/10/19 06:30 Labs: Abnormal Lab Results - Last 24 Hours (Table) 08/10/19 08/10/19 08/11/19 Range/Units 16:48 19:54 06:35 POC Glucose (mg/dL) 161 H 149 H 136 H (75-99) mg/dL 08/11/19 Range/Units 11:11 POC Glucose (mg/dL) 155 H (75-99) mg/dL Assessment and Plan Plan: assessment: #1. acute pneumonia, CT chest showed a 7.0 x 4.1 cm cavitary structure with fluid level in the left upper lobe likely infected bulla or cavitary neoplasm cavitary infection #2. Severe COPD, with the baseline FEV1 of 15% of predicted in 2015 with diffusion abnormality. Severe bullous emphysema noted #3. Acute on chronic hypoxemic respiratory failure related to left upper lobe cavitating pneumonia, and exacerbation of severe COPD #5. Hypertension #6. Hyperlipidemia #7. Previous episodes of pneumonia #8.Former smoker #9. Anxiety #10. Chronic bronchial asthma, unspecified plan: Wean Fio2, yesterday chest x-ray showed stable left upper lobe infiltrate. No fever no chills, continue Zosyn and vancomycin, cultures are negative thus far, continue IV steroids, we'll increase him to 60 mg every 6 hours, continue theophylline. Continue anxiolytics, patient is having a lot of anxiety about recurrence of respiratory distress. Prognosis extremely guarded, in view of his advanced COPD, fairly poor lung function, and multiple comorbidities. Cor status is DO NOT RESUSCITATE, we will continue supportive treatment. I performed a history & physical examination of the patient and discussed their management with my nurse practitioner, Chichi Youssef. I reviewed the nurse practitioner's note and agree with the documented findings and plan of care. Lung sounds are positive for diminished breath sounds. The findings and the impression was discussed with the patient. I attest to the documentation by the nurse practitioner. Time with Patient: Less than 30
[2019-08-11 17:12] LABS: Glucose,Whole Blood 168 mg/dL (75-99)
[2019-08-11] MEDS: methylPREDNISolone SOD SUCCI 125 MG/2 ML VIAL IV SCH (17:12)
[2019-08-11 21:13] LABS: Glucose,Whole Blood 209 mg/dL (75-99)
--- NOTE | 2019-08-11 23:26 | PN ---
PROGRESS NOTE DATE OF SERVICE: 08/11/2019 This 74-year-old gentleman admitted with COPD exacerbation as well as acute chronic hypoxic respiratory failure with possible left lower pneumonia has taken a turn for the worse. Yesterday the patient was on BiPAP. Currently today the patient is on high- flow oxygen. The patient is slightly better but still extremely short of breath. Dr. Carnes is following the patient closely. The patient is started on broad spectrum IV antibiotics. The patient does have possible cavitary pneumonia. The patient is on high-flow AIRVO at 50 L and FiO2 45%. The patient extreme shortness of breath at rest. PAST MEDICAL HISTORY: Reviewed. REVIEW OF SYSTEMS: Review of system could not be taken. The patient is extremely short of breath. CURRENT MEDICATIONS: Are reviewed and include: 1. Tylenol p.r.n. 2. DuoNeb q.i.d. and p.r.n. 3. Norvasc 5 mg p.o. b.i.d. 4. Lipitor 10 mg q.h.s. 5. Pulmicort 1 mg b.i.d. 6. Klonopin 0.5 mg b.i.d. 8. Diflucan 100 mg daily. 9. Perforomist 20 mg b.i.d. 10.Robitussin. 11.Heparin 5000 subcu b.i.d. 12.NovoLog scale. 13.Solu-Medrol 40 IV q.6 hours. 14.Singulair. 15.Narcan. 16.Protonix. 17.Zosyn 3.375 IV q.8. 19.Vancomycin 1.25 mg b.i.d. PHYSICAL EXAMINATION: Patient is alert, oriented x3. Extremely short of breath. Pulse 117. Blood pressure 116/73, respirations 16, temperature 98.2, pulse ox 88 percent on 40% high-flow oxygen FiO2. AIRVO. HEENT: Conjunctivae normal. Oral mucosa moist. NECK is no jugular venous distention. No carotid bruit. No lymph node enlargement. Cardiovascular system: S1, S2 muffled. No S3, no S4. RESPIRATORY: Breath sounds diminished in the bases. A few scattered rhonchi and crackles. ABDOMEN: Soft, obese, nontender. No mass palpable. LEGS no edema. No swelling. NERVOUS SYSTEM: No focal deficits. LABS: Accu-Cheks 155, 168. WBC 16.8, sodium 137, potassium 4.4. ASSESSMENT: 1. Chronic obstructive pulmonary disease, acute exacerbation with acute on chronic hypercapnic hypoxic respiratory failure, recurrent. 2. Possible left upper lobe pneumonia possibly gram-negative with possible cavitation. 3. Mireya albicans in the sputum. 4. Cavitary lesion left upper lobe, possibly infected bulla with malignancy versus cavitating pneumonia. 5. Leukocytosis. 6. Anemia of chronic disease. 7. Hypokalemia. 8. Increased random blood sugar. 9. Hyponatremia. 10.History of asthma, chronic obstructive pulmonary disease. 11.History of hypertension. 12.History of hyperlipidemia. 13.History of chronic obstructive pulmonary disease. 14.History of anxiety. 15.Remote history of nicotine dependence. RECOMMENDATIONS AND DISCUSSION: This 74-year-old gentleman who presented with multiple complex medical issues, at this time, I recommend to continue the current medications. Continue symptomatic treatment. Otherwise, at this time, I would recommend bronchodilators. Continue with IV steroids. Continue the rest of medications. The culture showed Mireya albicans. Guarded prognosis because of multiple complex medical issues. Further recommendations to follow. See orders for details. MMODL / IJN: [id number] / MTDD
[2019-08-11 23:41] LABS: Glucose,Whole Blood 160 mg/dL (75-99)
[2019-08-12] MEDS: guaiFENesin SYRUP 100MG/5ML 200 MG/10 ML CUP PO PRN (00:01)
[2019-08-12] MEDS: methylPREDNISolone SOD SUCCI 125 MG/2 ML VIAL IV SCH ×4 (00:01→18:30)
[2019-08-12] MEDS: HEPARIN SODIUM,PORCINE 5,000 UNIT/ML 1 ML VIAL SQ SCH ×3 (00:01→21:31)
[2019-08-12] MEDS: INSULIN ASPART (NovoLOG) 100 UNIT/ML VIAL SQ SCH ×5 (00:01→21:31)
[2019-08-12] MEDS: ATORVASTATIN 10 MG TAB PO SCH ×2 (00:01→21:31)
[2019-08-12] MEDS: clonazePAM 0.5 MG TAB PO PRN ×3 (00:01→17:14)
[2019-08-12] MEDS: PIPERACILLIN-TAZOBACTAM 3.375 GM in SODIUM CHLORIDE 0.9% 100 ML IVPB SCH ×3 (01:10→17:24)
[2019-08-12] MEDS: VANCOMYCIN 1,250 MG in SODIUM CHLORIDE 0.9% 250 ML IVPB SCH ×2 (06:08→17:15)
[2019-08-12 06:55] LABS: Glucose,Whole Blood 137 mg/dL (75-99)
[2019-08-12] MEDS: IPRATROPIUM-ALBUTEROL 3 ML NEB INHALATION SCH ×4 (07:31→19:52)
[2019-08-12] MEDS: BUDESONIDE 1 MG/2 ML NEBU INHALATION SCH ×2 (07:31→19:52)
[2019-08-12] MEDS: FORMOTEROL FUMARATE 20 MCG/2 ML NEBU INHALATION SCH ×2 (07:36→19:52)
[2019-08-12] MEDS: amLODIPine 5 MG TAB PO SCH ×3 (09:49→21:31)
[2019-08-12] MEDS: PANTOPRAZOLE 40 MG TABLET PO SCH (09:49)
[2019-08-12] MEDS: MONTELUKAST 10 MG TAB PO SCH (09:49)
[2019-08-12] MEDS: FLUCONAZOLE 100 MG TAB PO SCH (09:49)
[2019-08-12] MEDS: THEOPHYLLINE 24 HOUR 300 MG CAP.ER.24H PO SCH (09:52)
[2019-08-12 11:36] LABS: Glucose,Whole Blood 195 mg/dL (75-99)
--- NOTE | 2019-08-12 13:55 | P.PN ---
Subjective Progress Note Date: 08/12/19 Principal diagnosis: Shortness of breath, chills, cough 74-year-old male patient with history of severe COPD, with baseline FEV1 of 0.48 L or 15% of predicted with diffusion abnormality, chronic hypoxemic respiratory failure, hypertension, anxiety, hyperlipidemia, former smoking history. He follows with Dr. Carnes in the pulmonary clinic, patient is on maintenance dose of prednisone 10 mg daily, Spiriva, DuoNeb, Symbicort, theophylline, and Mucinex. Patient presented to the hospital for evaluation of increasing dyspnea, cough, chills, weakness, reduction of greenish colored sputum. Patient was initially evaluated at [facility], and chest x-rays performed showing cavitating lesion in the right upper lobe concerning for fungal versus neoplastic versus TB. Patient was started on Levaquin, patient was transferred to [facility] for further management, and CT chest with contrast was obtained showing a 7.0 x 4.1 cm cavitary structure with fluid level in the left upper lobe extending into the left lung apex that could reflect infected Although cavitary neoplasm with catheter infection not excluded, severe bullous emphysema was noted. she was started on empiric antibiotics,in the form of Zosyn and vancomycin, nebulized bronchodilators and he is being admitted for further management. On 08/02/2019 patient seen in follow-up on selective care unit, still dyspneic with conversation, but no acute distress, he states his breathing is probably about the same, no fever, denies chills, occasional nonproductive cough, unable to bring up any sputum, currently on 2 L of oxygen with a pulse ox of 93%, he denies any chest pain on today's exam, lung sounds reveal diminished breath sounds with crackles over anterior lateral left chest. End expiratory wheezes, patient is on a combination of Zosyn and vancomycin. On oral prednisone 40 mg daily, Symbicort, breathing treatments, it is labs have been reviewed, showing white blood cell count 20.4, hemoglobin of 12.1, serum sodium was 135, the rest of the electrolytes and renal profile were within the normal limits. On 08/04/2019 patient seen in follow-up on selective care unit, still dyspneic, but he states he is slightly improved, remains on 2 L of oxygen and his pulse ox is 92%, he still unable to bring up any sputum, his cough does not sound very congested, he is afebrile, hemodynamically patient is stable, he is very dyspneic with any exertion, but he has been up and walking to the bathroom, requires frequent rest periods, but not far off his baseline. On the regular basis patient activity level is limited, he is able to ambulate about the house, and he breaks up his activities of daily living into manageable tasks. Lung sounds reveal coarse crackles over left upper lung, and expiratory wheezes, and diminished breath sounds bilaterally. Patient remains on a combination of Zosyn and vancomycin. He has been unable to provide a sputum culture. On 08/05/2019 patient seen in follow-up on selective care unit. Awake and alert, he is still very short of breath with any activity, but he was able to get up in the chair, sit up for meals, does require rest periods in between, currently on 2 L of oxygen with a pulse ox of 92%, hemodynamically patient is stable, he [place] any fever or chills, he started to bring up small amounts of phlegm, sputum sample was sent down for culture and is pending at this time, no new labs, no new chest x-rays, remains on Zosyn and vancomycin for abiotic coverage, remains on IV Solu-Medrol and breathing treatments, slowly improving On 08/06/2019 patient seen in follow-up on medical surgical floor. They have 5 L of oxygen with a pulse ox of 96%, afebrile, hemodynamically stable, patient is very dyspneic with any exertion, requiring frequent periods of rest, overall he states he is improving, no acute events overnight. Sputum culture has shown no growth other than Mireya albicans which could be oral contamination, patient was started on Diflucan, he remains on a combination of Zosyn and vancomycin. No fever or chills, lung sounds reveal diminished breath sounds bilaterally, no rhonchi or wheezing on today's exam. Follow-up chest x-ray was obtained today showing stable left upper lobe cavitating infiltrate. Vital signs have been st able. no complains of chest pain, no hemoptysis, On 08/08/2019 patient is seen in follow-up on medical surgical floor. He sitting up in the recliner, he is dyspneic with any activity, he has to space out any of his activities of daily living so he can recover. But no worsening dyspnea, no fever or chills, current 4 L of oxygen, his pulse ox is 92%, remains on, initially Zosyn and vancomycin, no growth on the sputum culture. No complaints of chest pain no complaints of hemoptysis, sounds are diminished, no wheezing On 08/09/2019 patient is seen in follow-up on medical surgical floor. He is ambulating to the bathroom, does become very short of breath with any exertion, dyspnea, vital signs are stable, he remains on 5 L of oxygen, pulse ox of 98%, afebrile, hemodynamically stable, sputum culture has shown no growth, he remains on a combination of Zosyn and vancomycin. Slowly improving, no hemoptysis, no chest pain, lung sounds are diminished, no wheezing On 08/11/2018 patient seen in follow-up on medical surgical floor. Yesterday 18 was called in regards to acute respiratory distress and episode of desaturation, for which the patient required placedment on Airvo, he could not tolerate the BiPAP facemask. Today he remains on Airvo at 50 l/min, and fio2 45 %, patient is dyspneic with any exertion and at rest. States he is feeling slightly better today. He continues on DuoNeb inhalation treatments, Pulmicort, Perforomist, Singulair, theophylline, IV steroids, Zosyn and vancomycin. Yesterday chest x- ray showed emphysema, and extensive infiltration in the left upper lobe unchanged from the prior exam on 08/09/2019. Afebrile. Sputum culture was negative. On 08/12/2019 patient seen in follow-up on medical surgical floor. He is resting quietly in bed, remains on Airvo at 40l and Fio2 of 40%, no acute distress, afebrile. The process of weaning FiO2 has been slow, and so far we have been unable to wean him off the high flow oxygen. he continues on Zosyn, and vancomycin, patient has been maximized on his medical treatment, still has a quiet severe exertional and dyspnea at rest. His activity level is very limited, as the patient has severe exertional dyspnea with any activity. We have discussed possibility of hospice and palliative care initiation with the patient and the family, they're not quite ready for right now, however they will given her thought. For now we'll continue supportive treatment Objective - Vital Signs Vital signs: Vital Signs Temp 97.3 F L 08/12/19 07:00 Pulse 108 H 08/12/19 12:04 Resp 20 08/12/19 07:30 BP 124/63 08/12/19 07:00 Pulse Ox 94 L 08/12/19 07:00 Intake & Output 08/11/19 08/12/19 08/12/19 18:59 06:59 18:59 Output Total 200 350 Balance -200 -350 Weight 68 kg Output: Urine 200 350 Other: Voiding Method Urinal Urinal Urinal # Voids 1 # Bowel Movements 1 - Exam GENERAL EXAM: Alert, very dyspneic, 74-year-old white male, on Airvo at 40 l/min, or 40% Fio2 dyspneic with any conversation and with any exertion HEAD: Normocephalic/atraumatic. EYES: Normal reaction of pupils, equal size. Conjunctiva pink, sclera white. NOSE: Clear with pink turbinates. THROAT: No erythema or exudates. NECK: No masses, no JVD, no thyroid enlargement, no adenopathy. CHEST: No chest wall deformity. Symmetrical expansion. LUNGS: Equal air entry with diminished breath sounds bilaterally, diminished air entry bilaterally, no wheezes CVS: Regular rate and rhythm, normal S1 and S2, no gallops, no murmurs, no rubs ABDOMEN: Soft, nontender. No hepatosplenomegaly, normal bowel sounds, no guarding or rigidity. EXTREMITIES: No clubbing, no edema, no cyanosis, 2+ pulses and upper and lower extremities. MUSCULOSKELETAL: Muscle strength and tone normal. SPINE: No scoliosis or deformity SKIN: No rashes CENTRAL NERVOUS SYSTEM: Alert and oriented -3. No focal deficits, tone is normal in all 4 extremities. PSYCHIATRIC: Alert and oriented -3. Appropriate affect. Intact judgment and insight. - Labs CBC & Chem 7: 08/10/19 06:30 08/10/19 06:30 Labs: Abnormal Lab Results - Last 24 Hours (Table) 08/11/19 08/11/19 08/11/19 Range/Units 17:00 21:01 23:20 POC Glucose (mg/dL) 168 H 209 H 160 H (75-99) mg/dL 08/12/19 08/12/19 Range/Units 06:43 11:25 POC Glucose (mg/dL) 137 H 195 H (75-99) mg/dL Assessment and Plan Plan: assessment: #1. acute pneumonia, CT chest showed a 7.0 x 4.1 cm cavitary structure with fluid level in the left upper lobe likely infected bulla or cavitary neoplasm cavitary infection #2. Severe COPD, with the baseline FEV1 of 15% of predicted in 2015 with diffusion abnormality. Severe bullous emphysema noted #3. Acute on chronic hypoxemic respiratory failure related to left upper lobe c avitating pneumonia, and exacerbation of severe COPD #5. Hypertension #6. Hyperlipidemia #7. Previous episodes of pneumonia #8.Former smoker #9. Anxiety #10. Chronic bronchial asthma, unspecified plan: Discussed with patient's and possibility of relative care initiation in the event patient does not likely improve and in the event patient compensates and starts clinically deteriorating. For now patient says DO NOT RESUSCITATE, the agrees with hospice if patient does not improve, for now we'll continue supportive care, prognosis extremely guarded, he remains on high flow oxygen, and we have been unable to wean him off the high flow oxygen, patient is maximized in terms of medical treatment, he is being treated for cavitating left upper lobe pneumonia, his been very slow to improve. We will continue to follow, in the event patient is able to be discharged from the hospital he will need subacute rehab placement in the states she would like him placed closer to their residence and some in [place]. We discussed that with discharge planning, we will start initiating the process for possibility of rehab placement after discharge for now continue with IV steroids, nebulized bronchodilators, and antibiotics I performed a history & physical examination of the patient and discussed their management with my nurse practitioner, Chichi Youssef. I reviewed the nurse practitioner's note and agree with the documented findings and plan of care. Lung sounds are positive for diminished breath sounds. The findings and the impression was discussed with the patient. I attest to the documentation by the nurse practitioner. Time with Patient: Less than 30
[2019-08-12 16:44] LABS: Glucose,Whole Blood 127 mg/dL (75-99)
[2019-08-12 20:09] LABS: Glucose,Whole Blood 168 mg/dL (75-99)
--- NOTE | 2019-08-12 20:25 | PN ---
PROGRESS NOTE DATE OF SERVICE: 08/12/2019 This 74-year-old gentleman who was admitted with COPD acute exacerbation also had chronic hypoxic respiratory failure. The patient is complaining of significant shortness of breath. The patient also complaining of bilateral arm swelling and some IV extravasations. Also some evidence of some cellulitis/thrombophlebitis also. Dr. Carnes is following the patient closely. PAST MEDICAL HISTORY: Reviewed. REVIEW OF SYSTEMS: Cardiovascular: No angina or palpitations. RESPIRATORY: As mentioned earlier. GASTROINTESTINAL: As mentioned earlier. : No dysuria or retention. CENTRAL NERVOUS SYSTEM: No focal deficits. CURRENT MEDICATIONS: Reviewed and include: 1. Tylenol p.r.n. 2. DuoNeb q.i.d. and p.r.n. 3. Norvasc 5 mg p.o. b.i.d. 4. Lipitor 10 mg q.h.s. 5. Pulmicort 1 mg b.i.d. 6. Klonopin 0.5 mg daily. 7. Diflucan 100 mg daily. 8. Perforomist 20 mg b.i.d. 9. Robitussin. 10.Solu-Medrol 60 IV q.6h. 11.Singulair. 12.Narcan. 13.Zofran. 14.Protonix. 15.Zosyn 3.375 IV q.8. 16.Vancomycin. PHYSICAL EXAM: Patient is alert, oriented x3. Pulse is 106. Blood pressure 120/70, respirations 19, temperature 98.1, pulse ox 94% on 40% high-flow oxygen. HEENT: Conjunctivae normal. NECK: No JVD. CARDIOVASCULAR: S1, S2 muffled. RESPIRATORY: Breath sounds diminished in the bases. Bilateral scattered rhonchi and crackles. ABDOMEN: Soft, nontender. No mass palpable. LEGS no edema. No swelling. NERVOUS SYSTEM: No focal deficits. LABS: Accu-Cheks 195, 127. WBC 16.8, hemoglobin 14.2. Sodium 139, potassium 4.4. ASSESSMENT: 1. Chronic obstructive pulmonary disease acute exacerbation with acute on chronic hypercapnic hypoxic respiratory failure, recurrent. 2. Possible left upper lobe pneumonia, possibly gram-negative with possible cavitation. 3. On high-flow oxygen. 4. Mireya albicans in the sputum. 5. Cavitary lesion in the left upper lobe, possibly infected bullae malignancy versus cavitating pneumonia. 6. Leukocytosis. 7. Anemia of chronic disease. 8. Hypokalemia. 9. Increased random blood sugar. 10.Hyponatremia. 11.History of asthma. 12.Chronic obstructive pulmonary disease. 13.History of hypertension. 14.History of hyperlipidemia. 15.History of chronic obstructive pulmonary disease. 16.History of anxiety. 17.Remote history of nicotine dependence. 18.NO CODE, NO CPR, NO VENT. RECOMMENDATIONS AND DISCUSSION: In this 74-year-old gentleman who presented with multiple complex medical issues, at this time, we will continue to recommend intensive bronchodilator treatment as well as high-dose IV steroids, antibiotics. However, the patient is extremely limited with significant extensive dyspnea. Dr. Carnes has discussed the patient about the possibility of palliative care versus hospice. We will continue to monitor. Prognosis guarded. Further recommendations to follow. MMGINETTEL / NICOLAN: [id number] /
[2019-08-13] MEDS: methylPREDNISolone SOD SUCCI 125 MG/2 ML VIAL IV SCH ×5 (00:37→20:41)
[2019-08-13] MEDS: PIPERACILLIN-TAZOBACTAM 3.375 GM in SODIUM CHLORIDE 0.9% 100 ML IVPB SCH ×4 (00:38→23:39)
[2019-08-13] MEDS: clonazePAM 0.5 MG TAB PO PRN ×2 (05:59→14:34)
[2019-08-13] MEDS: VANCOMYCIN 1,250 MG in SODIUM CHLORIDE 0.9% 250 ML IVPB SCH ×2 (06:05→17:42)
[2019-08-13 06:45] LABS: African American GFR (CKD) >90 (>60 ml/min/1.73 sqM); Non-African American GFR(CKD) >90 (>60 ml/min/1.73 sqM)
[2019-08-13 07:11] LABS: Glucose,Whole Blood 132 mg/dL (75-99)
[2019-08-13] MEDS: INSULIN ASPART (NovoLOG) 100 UNIT/ML VIAL SQ SCH ×4 (07:34→20:37)
[2019-08-13] MEDS: PANTOPRAZOLE 40 MG TABLET PO SCH (07:34)
[2019-08-13] MEDS: BUDESONIDE 1 MG/2 ML NEBU INHALATION SCH ×2 (08:03→22:25)
[2019-08-13] MEDS: FORMOTEROL FUMARATE 20 MCG/2 ML NEBU INHALATION SCH ×2 (08:03→22:25)
[2019-08-13] MEDS: IPRATROPIUM-ALBUTEROL 3 ML NEB INHALATION SCH ×4 (08:03→22:26)
[2019-08-13] MEDS: amLODIPine 5 MG TAB PO SCH ×2 (08:38→20:42)
[2019-08-13] MEDS: THEOPHYLLINE 24 HOUR 300 MG CAP.ER.24H PO SCH (08:38)
[2019-08-13] MEDS: FLUCONAZOLE 100 MG TAB PO SCH (08:38)
[2019-08-13] MEDS: MONTELUKAST 10 MG TAB PO SCH (08:38)
[2019-08-13] MEDS: HEPARIN SODIUM,PORCINE 5,000 UNIT/ML 1 ML VIAL SQ SCH ×2 (08:38→20:41)
[2019-08-13 11:40] LABS: Glucose,Whole Blood 200 mg/dL (75-99)
--- NOTE | 2019-08-13 14:48 | P.PN ---
Subjective Progress Note Date: 08/13/19 Principal diagnosis: Acute pneumonia, CT chest showed a 7.0 x 4.1 cm cavitary structure with fluid level in the left upper lobe likely infected bulla or cavitary neoplasm cavitary infection 74-year-old male patient with history of severe COPD, with baseline FEV1 of 0.48 L or 15% of predicted with diffusion abnormality, chronic hypoxemic respiratory failure, hypertension, anxiety, hyperlipidemia, former smoking history. He follows with Dr. Carnes in the pulmonary clinic, patient is on maintenance dose of prednisone 10 mg daily, Spiriva, DuoNeb, Symbicort, theophylline, and Mucinex. Patient presented to the hospital for evaluation of increasing dyspnea, cough, chills, weakness, reduction of greenish colored sputum. Patient was initially evaluated at [facility], and chest x-rays performed showing cavitating lesion in the right upper lobe concerning for fungal versus neoplastic versus TB. Patient was started on Levaquin, patient was transferred to [facility] for further management, and CT chest with contrast was obtained showing a 7.0 x 4.1 cm cavitary structure with fluid level in the left upper lobe extending into the left lung apex that could reflect infected although cavitary neoplasm with catheter infection not excluded, severe bullous emphysema was noted. she was started on empiric antibiotics,in the form of Zosyn and vancomycin, nebulized bronchodilators and he is being admitted for further management. The patient is seen today 08/13/2019 in follow-up on the selective care unit. He is currently resting in bed. Awake and alert in no acute distress. Breathing a bit easier today as compared to yesterday. He's been quite slow to progress. He is down to 4 L/m per nasal cannula. Maintaining O2 saturations in the 90s. He is afebrile. Hemodynamically stable. Sputum culture positive for Mireya. Creatinine 0.72. He remains on DuoNeb inhalations, Pulmicort and Perforomist inhalations, IV Solu-Medrol, Singulair, theophylline, Diflucan, antibiotics in the form of Zosyn and vancomycin. Objective - Vital Signs Vital signs: Vital Signs Temp 97.6 F 08/13/19 07:00 Pulse 102 H 08/13/19 11:07 Resp 16 08/13/19 07:00 BP 136/76 08/13/19 07:00 Pulse Ox 97 08/13/19 07:00 Intake & Output 08/12/19 08/13/19 08/13/19 18:59 06:59 18:59 Intake Total 250 990 Output Total 450 Balance -200 990 Intake: IV 250 250 Vancomycin 1,250 mg In 250 250 Sodium Chloride 0.9% 250 ml @ 125 mls/hr IVPB Q12H [facility] Rx#:[id number] Intake, IV Titration 100 Amount Piperacillin-Tazobactam 3 100 .375 gm In Sodium Chloride 0.9% 100 ml @ 25 mls/hr IVPB Q8HR [facility] Rx# :[id number] Oral 640 Output: Urine 450 Other: Voiding Method Urinal Urinal Urinal # Voids 2 1 # Bowel Movements 1 - Exam GENERAL EXAM: Alert, pleasant 74-year-old male patient, down to 4 L/m per nasal cannula and maintaining O2 saturations in the 90s HEAD: Normocephalic/atraumatic. EYES: Normal reaction of pupils, equal size. Conjunctiva pink, sclera white. NOSE: Clear with pink turbinates. THROAT: No erythema or exudates. NECK: No masses, no JVD, no thyroid enlargement, no adenopathy. CHEST: No chest wall deformity. Symmetrical expansion. LUNGS: Equal air entry with diminished breath sounds bilaterally, crackles over left upper lateral chest anteriorly, end expiratory wheezes CVS: Regular rate and rhythm, normal S1 and S2, no gallops, no murmurs, no rubs ABDOMEN: Soft, nontender. No hepatosplenomegaly, normal bowel sounds, no guarding or rigidity. EXTREMITIES: No clubbing, no edema, no cyanosis, 2+ pulses and upper and lower extremities. MUSCULOSKELETAL: Muscle strength and tone normal. SPINE: No scoliosis or deformity SKIN: No rashes CENTRAL NERVOUS SYSTEM: No focal deficits, tone is normal in all 4 extremities. PSYCHIATRIC: Alert and oriented -3. Appropriate affect. Intact judgment and insight. - Labs CBC & Chem 7: 08/10/19 06:30 08/13/19 05:59 Labs: Abnormal Lab Results - Last 24 Hours (Table) 08/12/19 08/12/19 08/13/19 Range/Units 16:30 19:56 07:00 POC Glucose (mg/dL) 127 H 168 H 132 H (75-99) mg/dL 08/13/19 Range/Units 11:29 POC Glucose (mg/dL) 200 H (75-99) mg/dL Assessment and Plan Assessment: 1 Acute pneumonia, CT chest showed a 7.0 x 4.1 cm cavitary structure with fluid level in the left upper lobe likely infected bulla or cavitary neoplasm cavitary infection, slight improvement on recent chest x-ray 2 Severe COPD, with the baseline FEV1 of 15% of predicted in 2015 with diffusion abnormality. Severe bullous emphysema noted. Currently 3 Chronic hypoxemic respiratory failure 4 Hypertension 5 Hyperlipidemia 6 Previous episodes of pneumonia 7 Former smoker 8 Anxiety 9 Chronic bronchial asthma, unspecified Plan: The patient was seen and evaluated by Dr. Carnes Improved today and down to 4 L nasal cannula Titrate down the FiO2 as tolerated Continue vancomycin and Zosyn for a total of 10 days each. Continue bronchodilators and IV steroids Repeat chest x-ray in a.m. Avoid bronchoscopy if possible due to the patient's severe bullous emphysema and poor lung function His overall prognosis is quite poor. May need to consider hospice/palliative care. The patient and family would like him to be placed in an extended care facility and the [facility] upon discharge. Continue to follow and make further recommendations based on his clinical status I, the cosigning physician, performed a history & physical examination of the patient. Lungs sounds bilateral end expiratory wheeze be scattered rhonchi more so on the left anterior chest. Maintaining good O2 saturations in the 90s on 4 L/m per nasal cannula. I discussed the assessment and plan of care with my nurse practitioner, Tamica Conrad. I attest to the above note as dictated by her.
[2019-08-13 17:51] LABS: Glucose,Whole Blood 138 mg/dL (75-99)
[2019-08-13 20:24] LABS: Glucose,Whole Blood 155 mg/dL (75-99)
[2019-08-13] MEDS: ATORVASTATIN 10 MG TAB PO SCH (20:42)
--- NOTE | 2019-08-13 22:22 | PN ---
PROGRESS NOTE DATE OF SERVICE: 08/23/2019 This 74-year-old gentleman admitted with COPD exacerbation and pneumonia has taken a turn for the worse yesterday. The patient is on BiPAP. The patient has high-flow oxygen. The patient is still severely short of breath. Dr. Carnes is following the patient. The patient is on extensive bronchodilators as well as IV steroids and antibiotics also. The patient also has significant difficulties in ambulation also. PT/OT evaluation, possible ECF rehab also. Patient also complaining of bilateral arm swelling also, possibly secondary to extravasation. Warm compresses are recommended at this time. PAST MEDICAL HISTORY: Reviewed. REVIEW OF SYSTEMS: CARDIOVASCULAR SYSTEM: No angina. RESPIRATORY: As mentioned earlier. GI: As mentioned earlier. : No dysuria. NERVOUS SYSTEM: As mentioned earlier. CURRENT MEDICATIONS: 1. Tylenol p.r.n. 2. DuoNeb q.i.d. and p.r.n. 3. Norvasc 5 mg p.o. daily. 4. Lipitor 10 mg q.h.s. 5. Pulmicort 1 mg b.i.d. 6. Klonopin 0.5 mg t.i.d. 7. Epinephrine p.r.n. 8. Diflucan 100 mg daily. 9. Perforomist b.i.d. 10.Heparin. 11.NovoLog. 12.Solu-Medrol 60 IV q.6h. 13.Singular. 14.Zofran. 15.Protonix. 16.Zosyn IV. PHYSICAL EXAMINATION: Patient is alert, oriented x3. The pulse is 104, blood pressure 130/76, respirations 16, temperature 97.2, pulse ox 97% on room air. HEENT: Conjunctivae normal. Oral mucosa moist. NECK: No jugular venous distention. No lymph node enlargement. CARDIOVASCULAR: S1, S2. RESPIRATORY: Diminished breath sounds at the bases. A few scattered rhonchi and crackles. Expiratory wheezing also present. ABDOMEN: Soft, nontender. LEGS: No edema, no swelling. NERVOUS SYSTEM: No focal deficits. LABS: WBC 16.2, hemoglobin 14.2, glucose 168 and 138. ASSESSMENT: 1. Chronic obstructive pulmonary disease acute exacerbation with acute on chronic hypercapnic hypoxic respiratory failure, recurrent. 2. Possible left upper lobe pneumonia, possibly gram-negative with possible cavitation. 3. On high-flow oxygen. 4. Mireya albicans in the sputum. 5. Cavitary lesion in the left upper lobe, possibly infected bullae, malignancy versus cavitating pneumonia. 6. Leukocytosis. 7. Anemia of chronic disease. 8. Hypokalemia. 9. Increased random blood sugar. 10.Hyponatremia. 11.History of asthma. 12.Chronic obstructive pulmonary disease. 13.History of hypertension. 14.History of hyperlipidemia. 15.History of anxiety. 16.Remote history of nicotine dependence. 17.NO CODE, NO CPR, NO VENT. RECOMMENDATIONS AND DISCUSSION: I recommend to continue current medications, continue to monitor, continue symptomatic treatment, continue the bronchodilators, continue with empiric antibiotics, continue with steroids. PT, OT evaluation. Continue with local treatment. Otherwise possible ECF rehab. Guarded prognosis because of multiple complex medical issues. Discussed with the patient and family at length and agrees. Closely follow with Dr. Carnes. Further recommendations to follow. MMGINETTEL / NICOLAN: [id number] /
[2019-08-14] MEDS: methylPREDNISolone SOD SUCCI 125 MG/2 ML VIAL IV SCH ×4 (05:32→23:22)
[2019-08-14 07:11] LABS: Glucose,Whole Blood 169 mg/dL (75-99)
[2019-08-14] MEDS: BUDESONIDE 1 MG/2 ML NEBU INHALATION SCH ×2 (07:37→20:49)
[2019-08-14] MEDS: IPRATROPIUM-ALBUTEROL 3 ML NEB INHALATION SCH ×4 (07:37→20:49)
[2019-08-14] MEDS: FORMOTEROL FUMARATE 20 MCG/2 ML NEBU INHALATION SCH ×2 (07:37→20:49)
--- NOTE | 2019-08-14 07:39 | XR ---
EXAMINATION TYPE: XR chest 1V portable DATE OF EXAM: 08/14/2019 Comparison: 08/10/2019 Clinical History: 74-year-old male COPD Findings: Heart normal size. Aorta and pulmonary vasculature within normal limits. Emphysema. Trace left effusi on suspected. Patchy airspace opacity throughout the periphery of the left upper lobe shows some impr ovement from prior. Impression: 1. COPD with severe emphysema. 2. Stable trace left pleural effusion. 3. Improving but residual infiltrate involving the periphery of the left upper lobe. Appropriate foll ow-up after treatment to ensure clearance given the cavitary changes described on the 08/01/2019 CT.
[2019-08-14] MEDS: amLODIPine 5 MG TAB PO SCH ×2 (07:54→20:36)
[2019-08-14] MEDS: THEOPHYLLINE 24 HOUR 300 MG CAP.ER.24H PO SCH (07:54)
[2019-08-14] MEDS: clonazePAM 0.5 MG TAB PO PRN ×2 (07:54→21:56)
[2019-08-14] MEDS: FLUCONAZOLE 100 MG TAB PO SCH (07:54)
[2019-08-14] MEDS: HEPARIN SODIUM,PORCINE 5,000 UNIT/ML 1 ML VIAL SQ SCH ×2 (07:54→20:36)
[2019-08-14] MEDS: PANTOPRAZOLE 40 MG TABLET PO SCH (07:54)
[2019-08-14] MEDS: MONTELUKAST 10 MG TAB PO SCH (07:54)
[2019-08-14] MEDS: INSULIN ASPART (NovoLOG) 100 UNIT/ML VIAL SQ SCH ×4 (07:55→20:34)
[2019-08-14] MEDS: PIPERACILLIN-TAZOBACTAM 3.375 GM in SODIUM CHLORIDE 0.9% 100 ML IVPB SCH (07:55)
[2019-08-14] MEDS ORDERED: FUROSEMIDE 10 MG/ML 4 ML VIAL IV STA (10:39)
[2019-08-14 11:56] LABS: Glucose,Whole Blood 210 mg/dL (75-99)
--- NOTE | 2019-08-14 12:30 | P.PN ---
Subjective Progress Note Date: 08/14/19 Principal diagnosis: Acute pneumonia, CT chest showed a 7.0 x 4.1 cm cavitary structure with fluid level in the left upper lobe likely infected bulla or cavitary neoplasm cavitary infection 74-year-old male patient with history of severe COPD, with baseline FEV1 of 0.48 L or 15% of predicted with diffusion abnormality, chronic hypoxemic respiratory failure, hypertension, anxiety, hyperlipidemia, former smoking history. He follows with Dr. Carnes in the pulmonary clinic, patient is on maintenance dose of prednisone 10 mg daily, Spiriva, DuoNeb, Symbicort, theophylline, and Mucinex. Patient presented to the hospital for evaluation of increasing dyspnea, cough, chills, weakness, reduction of greenish colored sputum. Patient was initially evaluated at [facility], and chest x-rays performed showing cavitating lesion in the right upper lobe concerning for fungal versus neoplastic versus TB. Patient was started on Levaquin, patient was transferred to [facility] for further management, and CT chest with contrast was obtained showing a 7.0 x 4.1 cm cavitary structure with fluid level in the left upper lobe extending into the left lung apex that could reflect infected although cavitary neoplasm with catheter infection not excluded, severe bullous emphysema was noted. she was started on empiric antibiotics,in the form of Zosyn and vancomycin, nebulized bronchodilators and he is being admitted for further management. The patient is seen today 08/13/2019 in follow-up on the selective care unit. He is currently resting in bed. Awake and alert in no acute distress. Breathing a bit easier today as compared to yesterday. He's been quite slow to progress. He is down to 4 L/m per nasal cannula. Maintaining O2 saturations in the 90s. He is afebrile. Hemodynamically stable. Sputum culture positive for Mireya. Creatinine 0.72. He remains on DuoNeb inhalations, Pulmicort and Perforomist inhalations, IV Solu-Medrol, Singulair, theophylline, Diflucan, antibiotics in the form of Zosyn and vancomycin. The patient is seen today 08/14/2019 in follow-up on the regular medical floor. He is currently sitting up in a chair at the bedside. Awake and alert in no acute distress. His pulmonary status has improved but still not quite back to his baseline. He is currently maintaining O2 saturations in the 90s on 4 L/m per nasal cannula. He's been afebrile. Hemodynamically stable. He remains on DuoNeb inhalations, Pulmicort and Perforomist inhalations, IV Solu-Medrol, Singulair, theophylline, Diflucan, antibiotics in the form of Zosyn and vancomycin. Objective - Vital Signs Vital signs: Vital Signs Temp 97.9 F 08/14/19 07:00 Pulse 96 08/14/19 11:09 Resp 18 08/14/19 07:00 BP 107/68 08/14/19 07:00 Pulse Ox 94 L 08/14/19 07:00 Intake & Output 08/13/19 08/14/19 08/14/19 18:59 06:59 18:59 Intake Total 1286 761 120 Balance 1286 761 120 Intake: IV 250 125 Vancomycin 1,250 mg In 250 125 Sodium Chloride 0.9% 250 ml @ 125 mls/hr IVPB Q12H [facility] Rx#:[id number] Intake, IV Titration 100 100 Amount Piperacillin-Tazobactam 3 100 100 .375 gm In Sodium Chloride 0.9% 100 ml @ 25 mls/hr IVPB Q8HR [facility] Rx# :[id number] Oral 936 536 120 Other: Voiding Method Urinal Urinal Urinal # Voids 4 - Exam GENERAL EXAM: Alert, pleasant 74-year-old male patient, down to 4 L/m per nasal cannula and maintaining O2 saturations in the 90s HEAD: Normocephalic/atraumatic. EYES: Normal reaction of pupils, equal size. Conjunctiva pink, sclera white. NOSE: Clear with pink turbinates. THROAT: No erythema or exudates. NECK: No masses, no JVD, no thyroid enlargement, no adenopathy. CHEST: No chest wall deformity. Symmetrical expansion. LUNGS: Equal air entry with diminished breath sounds bilaterally, end expiratory wheezes CVS: Regular rate and rhythm, normal S1 and S2, no gallops, no murmurs, no rubs ABDOMEN: Soft, nontender. No hepatosplenomegaly, normal bowel sounds, no guarding or rigidity. EXTREMITIES: No clubbing, no edema, no cyanosis, 2+ pulses and upper and lower extremities. MUSCULOSKELETAL: Muscle strength and tone normal. SPINE: No scoliosis or deformity SKIN: No rashes CENTRAL NERVOUS SYSTEM: No focal deficits, tone is normal in all 4 extremities. PSYCHIATRIC: Alert and oriented -3. Appropriate affect. Intact judgment and insight. - Labs CBC & Chem 7: 08/10/19 06:30 08/13/19 05:59 Labs: Abnormal Lab Results - Last 24 Hours (Table) 08/13/19 08/13/19 08/14/19 Range/Units 17:39 20:13 07:00 POC Glucose (mg/dL) 138 H 155 H 169 H (75-99) mg/dL 08/14/19 Range/Units 11:45 POC Glucose (mg/dL) 210 H (75-99) mg/dL Assessment and Plan Assessment: 1 Acute pneumonia, CT chest showed a 7.0 x 4.1 cm cavitary structure with fluid level in the left upper lobe likely infected bulla or cavitary neoplasm cavitary infection, moderate improvement on recent chest x-ray 2 Severe COPD, with the baseline FEV1 of 15% of predicted in 2015 with diffusion abnormality. Severe bullous emphysema noted. Currently 3 Chronic hypoxemic respiratory failure 4 Hypertension 5 Hyperlipidemia 6 Previous episodes of pneumonia 7 Former smoker 8 Anxiety 9 Chronic bronchial asthma, unspecified Plan: The patient was seen and evaluated by Dr. Carnes. Chest x-ray reviewed and is showing significant improvement but some residual infiltrate of the left upper lobe. Titrate down the FiO2 as tolerated. Continue vancomycin and Zosyn for a total of 10 days each. Continue bronchodilators and IV steroids. Avoid bronchoscopy if possible due to the patient's severe bullous emphysema and poor lung function. His overall prognosis is quite poor. The patient and family would like him to be placed in an extended care facility and the [facility] upon discharge. Continue to follow and make further recommendations based on his clinical status I, the cosigning physician, performed a history & physical examination of the patient. Lungs sounds bilateral end expiratory wheeze be scattered rhonchi more so on the left anterior chest. Maintaining good O2 saturations in the 90s on 4 L/m per nasal cannula. I discussed the assessment and plan of care with my nurse practitioner, Tamica Conrad. I attest to the above note as dictated by her.
[2019-08-14] MEDS: IPRATROPIUM-ALBUTEROL 3 ML NEB INHALATION PRN (16:48)
[2019-08-14 17:13] LABS: Glucose,Whole Blood 117 mg/dL (75-99)
[2019-08-14 20:33] LABS: Glucose,Whole Blood 148 mg/dL (75-99)
[2019-08-14] MEDS: ATORVASTATIN 10 MG TAB PO SCH (20:36)
--- NOTE | 2019-08-14 21:33 | PN ---
PROGRESS NOTE DATE OF SERVICE: 08/14/2019 This 74-year-old gentleman who was admitted with COPD exacerbation also had possible left upper lobe pneumonia, possibly cavitating nature. The patient has significant shortness of breath and respiratory difficulty, but currently slightly improved, still short of breath. PT and OT are evaluating the patient for possible ECF rehab. The patient also had bilateral leg edema. No chest pain, no palpitation. EXAM: Alert and oriented x3. Pulse is 110, blood pressure 130/80, respiration 18, temperature 97.5, pulse ox 94% on 4 L. HEENT: Conjunctivae normal. Oral mucosa moist. NECK: No jugular venous distention. No lymph node enlargement. CARDIOVASCULAR: S1, S2. RESPIRATORY: Diminished breath sounds at the bases. Bilateral scattered rhonchi and crackles. Respiratory wheezing. ABDOMEN: Soft, nontender. LEGS: No edema, no swelling. NERVOUS SYSTEM: No focal deficits. LABS: Accu-Cheks 169, 210, 117. ASSESSMENT: 1. Chronic obstructive pulmonary disease acute exacerbation with acute on chronic hypercapnic hypoxic respiratory failure, recurrent. 2. Possible left upper lobe pneumonia, possibly gram-negative with cavitation. 3. On high-flow oxygen. 4. Mireya albicans in the sputum. 5. Cavitary lesion, left upper lobe, possibly infected bullae malignancy versus cavitating pneumonia. 6. Leukocytosis. 7. Anemia of chronic disease. 8. Hypokalemia. 9. Increased random blood sugar. 10.Hyponatremia. 11.History of asthma, chronic obstructive pulmonary disease. 12.Hypertension. 13.Hyperlipidemia. 14.History of anxiety. 15.Remote history of nicotine dependence. 16.NO CODE, NO CPR, NO VENT. RECOMMENDATIONS AND DISCUSSION: Recommend to continue current medications, continue to monitor, continue symptomatic treatment. Otherwise, continue with antibiotics, continue the bronchodilators. PT, OT evaluation, possible ECF rehab. Further recommendations to follow. MMODL / IJN: [id number] /
[2019-08-15] MEDS: methylPREDNISolone SOD SUCCI 125 MG/2 ML VIAL IV SCH ×2 (05:26→12:32)
[2019-08-15] MEDS: clonazePAM 0.5 MG TAB PO PRN ×2 (06:00→14:02)
[2019-08-15 07:08] LABS: Glucose,Whole Blood 131 mg/dL (75-99)
[2019-08-15] MEDS: HEPARIN SODIUM,PORCINE 5,000 UNIT/ML 1 ML VIAL SQ SCH (07:45)
[2019-08-15] MEDS: THEOPHYLLINE 24 HOUR 300 MG CAP.ER.24H PO SCH (07:45)
[2019-08-15] MEDS: MONTELUKAST 10 MG TAB PO SCH (07:46)
[2019-08-15] MEDS: INSULIN ASPART (NovoLOG) 100 UNIT/ML VIAL SQ SCH ×2 (07:46→12:32)
[2019-08-15] MEDS: PANTOPRAZOLE 40 MG TABLET PO SCH (07:46)
[2019-08-15] MEDS: amLODIPine 5 MG TAB PO SCH (07:46)
[2019-08-15] MEDS: FLUCONAZOLE 100 MG TAB PO SCH (07:46)
[2019-08-15] MEDS: IPRATROPIUM-ALBUTEROL 3 ML NEB INHALATION SCH ×2 (08:57→12:11)
[2019-08-15] MEDS: BUDESONIDE 1 MG/2 ML NEBU INHALATION SCH (08:57)
[2019-08-15] MEDS: FORMOTEROL FUMARATE 20 MCG/2 ML NEBU INHALATION SCH (08:57)
[2019-08-15 10:31] VITALS: BP 112/63; RESP 20; TEMP 97.8
[2019-08-15 11:57] LABS: Glucose,Whole Blood 259 mg/dL (75-99)
[2019-08-15 12:25] VITALS: PULSE 101
--- NOTE | 2019-08-15 12:57 | P.DS ---
Providers Date of admission: 08/01/19 13:16 Expected date of discharge: 08/15/19 Attending physician: Ania Alcaraz Consults: 08/01/19 13:17 Consult Physician Routine Consulting Provider: Anthony Carnes Consult Reason/Comments: lung infection Do you want consulting provider notified?: Yes Primary care physician: Osvaldo Maynard MD Hospital Course: Final diagnosis Chronic obstructive pulmonary disease, acute exacerbation with acute on chronic hypercapnic hypoxic respiratory failure, recurrent Possible left upper lobe pneumonia, possibly gram-negative with cavitation Mireya albicans in the sputum Cavitary lesion, left upper lobe, possibly infected bullae malignancy versus cavitating pneumonia Leukocytosis Anemia of chronic disease Hypokalemia Increased random blood sugar hyponatremia History of asthma, chronic obstructive pulmonary disease Hypertension Hyperlipidemia history of anxiety Remote history of nicotine dependence No code, no CPR, no vent Discharge disposition Patient is being discharged in a stable condition with guarded prognosis to [facility] in [place] for continued PT/OT therapy. Patient will follow- up with primary care provider French Maynard upon discharge and will also be following up with pulmonary Dr. Carnes in 2 days as scheduled. Patient will continue on a short course of oral antibiotics in the form of Augmentin for the next 4 days and then may discontinue. Patient will also be continuing with prednisone taper upon discharge. Total time taken is 35 minutes. History of present illness This is a 74-year-old male who was recently admitted for COPD exacerbation also was found to have possible left upper lobe pneumonia with a possible cavitary lesion and was being closely monitored. Pulmonary is following as well. P atient will continue on oral antibiotics in the form of Augmentin twice daily for the next 4 days and then may discontinue. During hospitalization patient was on IV steroids and will continue with the prednisone taper in the outpatient setting. Patient will continue on bronchodilators as well in the outpatient setting. Patient has an appointment with Dr. Carnes on August 17 and will follow-up with him then. Patient was started on theophylline and will continue. Currently patient's condition is stable and is ready to go to the [facility] today. Family at the bedside verbalizes understanding of the treatment plan and agrees with this plan. Patient is denying any chest pain or palpitations at this time. Patient states that his shortness of breath has slightly improved and is being maintained on oxygen via nasal cannula at 4 L. Patient denies any nausea or vomiting and has been tolerating diet. Patient remains afebrile. Extremely guarded prognosis. On exam vital signs are stable. Temp is 97.8F, pulse 98, respirations are 20, blood pressure is 112/63, oxygen saturation is 95% on 4 L via nasal cannula. Cardio S1, S2 are muffled. Respiratory system shows diminished breath sounds at the bases with some scattered crackles and rhonchi noted. Expiratory wheezing noted on exam. Abdomen is soft, thin, nontender. Nervous system shows mild diffuse weakness with no focal deficits. Please refer to medication reconciliation sheet for a list of medications. Patient Condition at Discharge: Fair Plan - Discharge Summary Discharge Rx Participant: No New Discharge Prescriptions: New Amoxic-Pot Clav 875-125Mg [Augmentin 875-125] 1 tab PO Q12HR 4 Days #8 tablet Fluconazole [Diflucan] 100 mg PO DAILY tab Ipratropium-Albuterol Nebulize [Duoneb 0.5 mg-3 mg/3 ml Soln] 3 ml INHALATION RT-Q2H PRN ampul.neb PRN Reason: Shortness Of Breath Or Wheezing amLODIPine [Norvasc] 5 mg PO BID tab Formoterol Fumarate [Perforomist] 20 mcg INHALATION RT-BID nebu predniSONE 10 mg PO DIRECTED #30 tab Pantoprazole [Protonix] 40 mg PO AC-BRKFST tablet. Budesonide [Pulmicort] 1 mg INHALATION RT-BID nebu guaiFENesin SYRUP 100MG/5ML [Robitussin] 200 mg PO Q6H PRN cup PRN Reason: Congestion Acetaminophen Tab [Tylenol] 650 mg PO Q6HR PRN tab PRN Reason: Mild Pain Or Fever > 100.5 Multivit-Minerals/Folic Acid [Centrum Multigummies] 150 mcg PO DAILY 30 Days #30 tab.chew clonazePAM [KlonoPIN] 0.5 mg PO TID 3 Days #9 tablet Continue Theophylline Anhydrous [Uniphyl ER] 600 mg PO DAILY Budesonide-Formot 160-4.5 Mcg [Symbicort 160-4.5 Mcg Inhaler] 2 puff INHALATION RT-BID Ipratropium-Albuterol Nebulize [Duoneb 0.5 mg-3 mg/3 ml Soln] 3 ml INHALATION RT-QID guaiFENesin [Mucinex] 1,200 mg PO BID PRN PRN Reason: Congestion EPINEPHrine (Auto Inject) [Epipen] 0.3 mg IM ONCE PRN PRN Reason: Anaphylaxis Montelukast Sodium [Singulair] 10 mg PO DAILY Simvastatin [Zocor] 5 mg PO HS Omeprazole [PriLOSEC] 20 mg PO DAILY PRN PRN Reason: GERD Discontinued clonazePAM [KlonoPIN] 0.5 mg PO BID PRN PRN Reason: Anxiety amLODIPine [Norvasc] 5 mg PO DAILY predniSONE 10 mg PO DAILY Tiotropium [place] [Spiriva] 1 cap INHALATION RT-DAILY Discharge Medication List Budesonide-Formot 160-4.5 Mcg [Symbicort 160-4.5 Mcg Inhaler] 2 puff INHALATION RT-BID 08/01/19 [History] EPINEPHrine (Auto Inject) [Epipen] 0.3 mg IM ONCE PRN 08/01/19 [History] Ipratropium-Albuterol Nebulize [Duoneb 0.5 mg-3 mg/3 ml Soln] 3 ml INHALATION RT-QID 08/01/19 [History] Montelukast Sodium [Singulair] 10 mg PO DAILY 08/01/19 [History] Omeprazole [PriLOSEC] 20 mg PO DAILY PRN 08/01/19 [History] Simvastatin [Zocor] 5 mg PO HS 08/01/19 [History] Theophylline Anhydrous [Uniphyl ER] 600 mg PO DAILY 08/01/19 [History] guaiFENesin [Mucinex] 1,200 mg PO BID PRN 08/01/19 [History] Acetaminophen Tab [Tylenol] 650 mg PO Q6HR PRN tab 08/15/19 [Rx] Amoxic-Pot Clav 875-125Mg [Augmentin 875-125] 1 tab PO Q12HR 4 Days #8 tablet 08/15/19 [Rx] Budesonide [Pulmicort] 1 mg INHALATION RT-BID nebu 08/15/19 [Rx] Fluconazole [Diflucan] 100 mg PO DAILY tab 08/15/19 [Rx] Formoterol Fumarate [Perforomist] 20 mcg INHALATION RT-BID nebu 08/15/19 [Rx] Ipratropium-Albuterol Nebulize [Duoneb 0.5 mg-3 mg/3 ml Soln] 3 ml INHALATION RT-Q2H PRN ampul.neb 08/15/19 [Rx] Multivit-Minerals/Folic Acid [Centrum Multigummies] 150 mcg PO DAILY 30 Days #30 tab.chew 08/15/19 [Rx] Pantoprazole [Protonix] 40 mg PO AC-BRKFST tablet. 08/15/19 [Rx] amLODIPine [Norvasc] 5 mg PO BID tab 08/15/19 [Rx] clonazePAM [KlonoPIN] 0.5 mg PO TID 3 Days #9 tablet 08/15/19 [Rx] guaiFENesin SYRUP 100MG/5ML [Robitussin] 200 mg PO Q6H PRN cup 08/15/19 [Rx] predniSONE 10 mg PO DIRECTED #30 tab 08/15/19 [Rx] Follow up Appointment(s)/Referral(s): [facility] [NON-STAFF] - As Needed (nebulizer and wheelchair) Anthony Carnes DO [Doctor of Osteopathic Medicine] - 08/17/19 9:15 am (With Dr. Smith - instant powder supervisor from the hospital.) Osvaldo Maynard MD [Primary Care Provider] - 1-2 days Patient Instructions/Handouts: COPD (Chronic Obstructive Pulmonary Disease) (DC), Pneumonia (DC) Activity/Diet/Wound Care/Special Instructions: Patient is going to [facility] in [place] continue antibiotics until finished continue prednisone taper until finished continue current diet Follow-up with pulmonary upon discharge as discussed follow up with primary care provider upon discharge Home Care - nurse, physical and occupational therapy - [facility] - [phone] Nebulizer and wheelchair orders faxed to [facility] #[phone] PNEUMONIA 1. Continue coughing and breathing exercises to help clear your lungs of secretions. 2. Sit upright during the day to promote lung expansion. Avoid lying flat. 3. Use incentive spirometer every hour to open your airways. 4. Wash your hands before taking your medications or using your nebulizer. 5. Drink clear liquids as directed, they can help loosen secretions. Avoid milk products, as these can make secretions thicker. 6. Do not smoke, or be around others who smoke. 7. Call your physician if your shortness of breath worsens, if you develop an increased fever greater than 101. Discharge Disposition: TRANSFER TO SNF/ECF
--- NOTE | 2019-08-15 14:12 | P.PN ---
Subjective Progress Note Date: 08/15/19 On 08/15/2019, this is my first encounter with this patient has been admitted for a cavitating left upper lobe lesion and advanced COPD with an FEV1 of 50% of predicted and the patient is oxygen dependent at 4 L. The patient has severe emphysema with extensive bullous changes. I reviewed the CAT scan of the chest and I favored the possibility of a left upper lobe pneumonia with some fluid- filled bullous which could be a representation of a abscess formation rather than malignancy. In any rate, the patient has been hospital for total of 14 days. Sputum was positive for Mireya. The patient was given DuoNeb nebulized treatments around the clock and oral Diflucan and a combination of Zosyn and v ancomycin and he completed the course. A follow-up chest x-ray was done on 08/09/2019 showed extensive infiltration of the left upper lobe that has not been changed compared to the previous x-ray. Based on all this and based on his advanced lung disease, no bronchoscopy was done and the patient will be released today to [facility] based on the discharge medications, the patient is being released on Augmentin and DuoNeb nebulized treatments and a prednisone burst taper. Objective - Vital Signs Vital signs: Vital Signs Temp 97.8 F 08/15/19 07:00 Pulse 101 H 08/15/19 12:25 Resp 20 08/15/19 07:00 BP 112/63 08/15/19 07:00 Pulse Ox 95 08/15/19 07:00 Intake & Output 08/14/19 08/15/19 08/15/19 18:59 06:59 18:59 Intake Total 670 440 Output Total 300 Balance 670 140 Intake: Intake, IV Titration 350 Amount Piperacillin-Tazobactam 3 100 .375 gm In Sodium Chloride 0.9% 100 ml @ 25 mls/hr IVPB Q8HR [facility] Rx# :[id number] Vancomycin 1,250 mg In 250 Sodium Chloride 0.9% 250 ml @ 125 mls/hr IVPB Q12H [facility] Rx#:[id number] Oral 320 440 Output: Urine 300 Other: Voiding Method Urinal Urinal # Voids 2 - Exam GENERAL EXAM: Alert, pleasant 74-year-old male patient, down to 4 L/m per nasal cannula and maintaining O2 saturations in the 90s HEAD: Normocephalic/atraumatic. EYES: Normal reaction of pupils, equal size. Conjunctiva pink, sclera white. NOSE: Clear with pink turbinates. THROAT: No erythema or exudates. NECK: No masses, no JVD, no thyroid enlargement, no adenopathy. CHEST: No chest wall deformity. Symmetrical expansion. LUNGS: Equal air entry with diminished breath sounds bilaterally, end expiratory wheezes CVS: Regular rate and rhythm, normal S1 and S2, no gallops, no murmurs, no rubs ABDOMEN: Soft, nontender. No hepatosplenomegaly, normal bowel sounds, no guarding or rigidity. EXTREMITIES: No clubbing, no edema, no cyanosis, 2+ pulses and upper and lower extremities. MUSCULOSKELETAL: Muscle strength and tone normal. SPINE: No scoliosis or deformity SKIN: No rashes CENTRAL NERVOUS SYSTEM: No focal deficits, tone is normal in all 4 extremities. PSYCHIATRIC: Alert and oriented -3. Appropriate affect. Intact judgment and i nsight. - Labs CBC & Chem 7: 08/10/19 06:30 08/13/19 05:59 Labs: Abnormal Lab Results - Last 24 Hours (Table) 08/14/19 08/14/19 08/15/19 Range/Units 17:02 20:21 06:58 POC Glucose (mg/dL) 117 H 148 H 131 H (75-99) mg/dL 08/15/19 Range/Units 11:45 POC Glucose (mg/dL) 259 H (75-99) mg/dL Assessment and Plan Plan: 1 Acute pneumonia, CT chest showed a 7.0 x 4.1 cm cavitary structure with fluid level in the left upper lobe likely infected bulla or cavitary neoplasm cavitary infection, moderate improvement on recent chest x-ray. Based on my review of t he CAT scan of the chest, I favor a fluid-filled bullous or a lung abscess formation with bullous cavitary changes and left upper lobe related to advanced COPD rather than malignancy. I would favor long-term antibiotics in order of 4- 6 weeks. 2 Severe COPD, with the baseline FEV1 of 15% of predicted in 2015 with diffusion abnormality. Severe bullous emphysema noted. Currently 3 Chronic hypoxemic respiratory failure 4 Hypertension 5 Hyperlipidemia 6 Previous episodes of pneumonia 7 Former smoker 8 Anxiety 9 Chronic bronchial asthma, unspecified Plan Advised discharging this patient home on additional two-week course of Augmentin 875 mg by mouth twice a day treating this patient as a case of lung abscess. Continue the course of Diflucan. Completely the course of prednisone burst taper. DuoNeb nebulized treatments around the clock. Discharged to [facility].
== END 2019-08-15 15:32 | DRG 177 ==
LOC: EC 10:35 → 3SCARD 13:16 → 4SSUR 08-05 22:28
PROVIDERS: ADMIT Hospitalist; ATTEND Hospitalist
PROC: 5A09457 Assistance with Respiratory Ventilation, 24-96 Consecutive Hours, Continuous Positive Airway Pressure (ICD-10-PCS; principal; 2019-08-10)
DX: J15.6 Pneumonia due to other Gram-negative bacteria (principal); J96.21 Acute and chronic respiratory failure with hypoxia; J96.22 Acute and chronic respiratory failure with hypercapnia; E87.1 Hypo-osmolality and hyponatremia; L03.114 Cellulitis of left upper limb; L03.113 Cellulitis of right upper limb; D63.8 Anemia in other chronic diseases classified elsewhere; E78.5 Hyperlipidemia, unspecified; E87.6 Hypokalemia; F41.9 Anxiety disorder, unspecified; I10 Essential (primary) hypertension; J43.9 Emphysema, unspecified; K21.9 Gastro-esophageal reflux disease without esophagitis; N32.81 Overactive bladder; Z79.51 Long term (current) use of inhaled steroids; Z79.899 Other long term (current) drug therapy; Z80.0 Family history of malignant neoplasm of digestive organs; Z87.01 Personal history of pneumonia (recurrent); Z87.891 Personal history of nicotine dependence; Z98.42 Cataract extraction status, left eye; Z98.41 Cataract extraction status, right eye; Z96.1 Presence of intraocular lens; Z99.81 Dependence on supplemental oxygen; Z66 Do not resuscitate; I80.8 Phlebitis and thrombophlebitis of other sites
CPT/HCPCS: 36410; 71045; 71046; 71260; 76937; 80048; 80202; 82565; 83605; 85025; 85027; 87070; 87205; 87390; 93005; 94002; 94640; 94667; 94668; 94760; 96365; 96366; 96367; 99285